=== PATIENT | female | born 1965 | race Caucasian/White ===

== ENCOUNTER → 2016-08-22 | Outpatient (CLI) | payer BC ==
[~2016-08-22] MED LIST: BCPILLS PO; CHOL20009 PO; CLX20 PO; CONJ.6255 PO; HYDR-5688 PO; IBUP-1050 PO; NRN600 PO; PRLSR20 PO; ZNTT/150 PO
[2016-08-22 09:10] LABS: BASO % 0.6 %; BASO ABS # 0.04 K/uL (0-0.2); COMPLETE YES; EOS % 2.6 %; HEMATOCRIT 37.9 % (37-47); IG% 0.2 %; LYMPH % 37.7 %; MEAN CELL VOLUME 91.1 fL (80-100); MEAN PLATELET VOLUME 8.7 fL (7.4-10.4); MONO % 8.1 %; NEUT % 50.8 %; PLATELET COUNT 328 K/uL (130-400); RED BLOOD COUNT 4.16 M/uL (4.2-5.4); WHITE BLOOD COUNT 6.63 K/uL (4.8-10.8)
[2016-08-22 09:33] LABS: BLOOD UREA NITROGEN 11 mg/dl (7-18); BUN/CREATININE RATIO 11.6 (10-20); CARBON DIOXIDE 28 mmol/L (21-32); CHLORIDE 107 mmol/L (98-107); CREATININE 0.92 mg/dl (0.60-1.20); GLUCOSE 88 mg/dl (70-99); POTASSIUM 3.6 mmol/L (3.5-5.1); SODIUM 142 mmol/L (136-145)
== END | disposition home or self-care (01) ==
LOC: C.CPL 08:42
PROVIDERS: ATTEND Orthopaedic Surgery
DX: Z01.810 Encounter for preprocedural cardiovascular examination (principal); Z01.812 Encounter for preprocedural laboratory examination; S80.02XA Contusion of left knee, initial encounter; X58.XXXA Exposure to other specified factors, initial encounter

== ENCOUNTER → 2016-09-04 | Day surgery (SDC) | payer BC ==
[2016-08-22 07:47] VITALS: Ht 160 cm; Wt 80.9 kg
[~2016-09-04] VITALS: Ht 160 cm; Wt 80.9 kg
[~2016-09-04] MED LIST changes: +ATROPINE SULFATE 0.1 MG/ML 5ML SYR IV PRN; -BCPILLS PO; +CEFAZOLIN 2000 MG/60 ML D5W IV SCH; -CLX20 PO; +DEXAMETHASONE SOD INJ 4 MG/ML VIAL IV PRN; +DEXAMETHASONE SOD INJ 4 MG/ML VIAL ONE; +EpHEDrine SULFATE INJ 50 MG/ML AMP IV PRN; +FENTANYL CITRATE INJ 50 MCG/1 ML 2 ML VIAL IV PRN; +FENTANYL CITRATE INJ 50 MCG/1 ML 2 ML VIAL ONE; +HYDROCODONE/ACETAMOPHEN 5/325MG TAB PO PRN; +IBUPROFEN 200 MG TAB ONE; +KETOROLAC TROMETHAMINE 30 MG/ML VIAL IV. PRN; +KETOROLAC TROMETHAMINE 30 MG/ML VIAL ONE; +LABETALOL HCL IV 5 MG/ML 20ML IV PRN; +LACTATED RINGER'S 1000ML 1,000 ML IV SCH; +LIDOCAINE HCL 2% 2 ML VIAL (20MG/ML) ONE; +METOCLOPRAMIDE HCL INJ 5 MG/ML 2 ML VIAL IV PRN; +MIDAZOLAM HCL 1 MG/ML 2ML VIAL ONE; +MoRPHine SULFATE 10 MG/ML CARP/VIAL IV PRN; +NURSING VERBAL MED ORDER ONE; +ONDANSETRON INJ 2 MG/ML 2 ML VIAL IV PRN; +ONDANSETRON INJ 2 MG/ML 2 ML VIAL ONE; +PHENYLEPHRINE 100MCG/ML 5ML SYR IV PRN; +PROPOFOL IV EMULSION 10 MG/ML 20 ML VIAL IV ONE; +ROPIVACAINE 0.5% 5 MG/ML 30 ML VIAL ONE; +SODIUM CHLORIDE 0.9% 1000ML 1,000 ML IV SCH; -ZNTT/150 PO
--- NOTE | 2016-09-04 10:00 | History & Physical Bridge - [place] ---
H&P Re-Evaluation Bridge Note: I have examined the patient, reviewed the History & Physical and in the interval since the performance of the History & Physical I have noted the following changes of clinical significance: No changes noted
[2016-09-04] MEDS: EpINEphrine INJ 1MG/ML AMP 1 MG/ML AMP ONE ×2 (11:34→11:39)
--- NOTE | 2016-09-04 11:48 | [facility] Post Operative Brief Note ---
Immediate Operative Summary Operative Date Sep 04, 2016. Pre-Operative Diagnosis Right Knee Lateral Meniscus Tear, Pain Post-Operative Diagnosis same Procedure(s) Performed Right Knee Diagnostic Arthroscopy, PLICA Excision, Chondroplasty Surgeon Dr. Lorenzo Gross Heart Specialist Surgeon(s) Prakash Kowalski PA-C Estimated Blood Loss 0 Findings as above Specimens none Complication(s) None Disposition Recovery Room / PACU
--- NOTE | 2016-09-04 11:50 | Discharge Instructions-SurgCtr ---
Discharge Instructions Date of Service Sep 04, 2016. Visit Reason for Visit: Right Knee Lateral Meniscus Tear, Pain Discharge Discharge Diagnosis / Problem: SAME ABOVE Discharge Goals Goal(s): Decrease discomfort, Improve function Medications Stopped Medications Name(s): motrin stopped 1 wk ago Restart Stopped Medication(s): MAY RESTART 09/05/2016 Activity Recommendations Activity Limitations: as noted below Lifting Limitations: gradually increase as tolerated Exercise/Sports Limitations: gradually increase as tolerated Shower/Bathe: tomorrow Anesthesia . Post Anesthesia Instructions: If you have had General Anesthesia or IV Sedation: * Do not drive today. * Resume driving when surgeon permits. * Do not make important decisions or sign legal documents today. * Call surgeon for: 1. Temperature elevations greater than 101 degrees F. 2. Uncontrollable pain. 3. Excessive bleeding. 4. Persistent nausea and vomiting. 5. Medication intolerance (nausea, vomiting or rash). * For nausea and vomiting use only clear liquids such as: tea, soda, bouillon until nausea subsides, then gradually increase diet as tolerated. * If you have any concerns or questions, call your surgeon's office. If physician is unavailable and it is an emergency, call 911 or go to the nearest emergency room. . Instructions / Follow-Up Instructions / Follow-Up MEDICATIONS: * Resume previous medications unless instructed otherwise by your surgeon. * Always take pain medication on a full stomach or with food to avoid upset stomach. * Do not drink alcohol or drive while taking narcotics. * Ibuprofen or Tylenol may be taken if narcotic not needed. SPECIAL CARE INSTRUCTIONS: __ None _X_ Keep extremity elevated and iced x 48 hours; apply ice 20-30 minutes 8-10 times/day. May remove at night. _X_ Crutches _X_ May discard when able __ Brace/Post-op shoe __ 24 hrs/day __ Remove at night _X_ Dressing __ Maintain until seen in office, may shower with plastic over site _X_ Remove dressings in 24-48 hours and then may shower _X_ Cover incisions with band-aids after showering __ Do not remove steri-strips Call physician if chills or temperature rises above 102 degrees or pain unrelieved by prescribed pain medications. Office [phone] Diet Recommendations Home Diet: no limitations Fluid Restriction: None Procedures Procedures Performed: Right Knee Diagnostic Arthroscopy, PLICA Excision, Chondroplasty Pending Studies Studies pending at discharge: no Work Instructions Return To Work: after follow-up Lifting Limitations: none Medical Emergencies . Who to Call and When: Medical Emergencies: If at any time you feel your situation is an emergency, please call 911 immediately. . Non-Emergent Contact Non-Emergency issues call your: Primary Care Provider Call Non-Emergent contact if: you have a fever, temperature is above 101.5 . . "Provider Documentation" section prepared by Percy Kowalski.
--- NOTE | 2016-09-04 12:01 | OPERATIVE REPORT ---
DATE OF OPERATION: 09/04/2016 PREOPERATIVE DIAGNOSIS: Possible lateral meniscal tear of the right knee. 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 PROCEDURE: Right knee diagnostic arthroscopy with limited debridement including plica excision and chondroplasty. SURGEON: Dr. Saturnino Gross. STREAMING MEDIA SPECIALIST: Prakash Kowalski PA-C, whose assistance was necessary for positioning the leg and helping with instrumentation. ANESTHESIA: General. COMPLICATIONS: None. CONDITION: Stable to PACU. INDICATIONS: Patricia is a pleasant 51-year-old female who has been having greater than 1 year history of constant right knee pain. Most of her pain was located along the posterolateral region of the knee. She failed extensive physical therapy. MRI was essentially negative, but after failing a year of conservative treatment with continued knee pain, she elected to proceed with diagnostic arthroscopy. On 09/04/2016, she arrived at [facility] for the above procedure. She was seen in the preoperative holding area and the operative extremity was identified and signed. She was given a preoperative antibiotic, taken back to the operating room, laid on table in supine position, and put under general anesthesia. The right knee was then prepped and draped in sterile fashion. Timeout was done, and the patient and operative extremity was properly identified. A scope was introduced in the lateral parapatellar portal. Diagnostic arthroscopy showed no cartilage damage within the trochlea. There was a very large medial-sided plica. The scope was then brought into the medial compartment and a medial parapatellar portal was made under direct visualization. There were some grade 2 chondral changes of the distal medial femoral condyle and some flaking of the cartilage. Shaver was used to do chondroplasty of the distal medial femoral condyle. The medial meniscus was probed and examined extensively without evidence of tear. The scope was brought into the trochlea. ACL and PCL were intact. The scope was brought into the lateral compartment and the knee was brought in a [id number] position. The lateral meniscus was completely intact, was probed extensively without any evidence of tear. The femoral condyle was examined extensively without any evidence of arthritis or chondral flaps. The knee was brought into full extension and the shaver was used to do a limited synovectomy to include plica excision. The scope was then placed in the medial parapatellar portal. Repeat diagnostic arthroscopy showed no additional pathology. Arthroscopic instruments were removed from the knee. Portal sites were closed with 3-0 nylon. The knee was then injected with 30 mL of Naropin with epinephrine and Toradol. She was then placed in a soft compressive dressing, extubated, transferred to a [facility] and taken to the postanesthesia care unit in stable condition. She tolerated the procedure well. I attest to the content of the Intraoperative Record and any orders documented therein. Any exceptio ns are noted below.
[2016-09-04 13:07] VITALS: TEMP 37.4
[2016-09-04 13:20] VITALS: BP 129/80; PULSE 73; O2SAT 97
--- NOTE | 2016-09-04 13:36 | Anesthesia Progress Nt - [facility] ---
Anesthesia Post Op Note Date & Time Sep 04, 2016 at 13:36 Vital Signs Pain Intensity: 3 Vital Signs Past 12 Hours Date Time Temp Pulse Resp B/P Pulse Ox O2 Delivery O2 Flow Rate FiO2 09/04/16 13:20 73 16 129/80 97 Room Air 09/04/16 13:07 37.4 78 16 128/79 97 Room Air 09/04/16 12:47 78 17 95 09/04/16 12:47 78 17 09/04/16 12:45 104/74 09/04/16 12:42 37.4 76 20 104/74 95 Room Air 09/04/16 12:42 85 19 99 09/04/16 12:42 85 19 09/04/16 12:40 117/74 09/04/16 12:37 68 19 09/04/16 12:37 68 19 96 09/04/16 12:35 109/77 09/04/16 12:32 75 26 97 09/04/16 12:32 74 26 09/04/16 12:30 124/69 09/04/16 12:27 93 21 09/04/16 12:27 95 21 97 09/04/16 12:22 76 16 100 09/04/16 12:22 76 16 09/04/16 12:21 69 16 100 09/04/16 12:21 70 16 09/04/16 12:20 114/74 09/04/16 12:17 163/106 09/04/16 12:16 74 28 100 09/04/16 12:16 74 28 09/04/16 12:11 89 21 09/04/16 12:11 90 21 100 09/04/16 12:06 75 13 09/04/16 12:06 72 13 100 09/04/16 12:05 114/85 09/04/16 12:04 69 14 100 09/04/16 12:04 71 14 09/04/16 12:00 106/70 09/04/16 11:59 70 11 09/04/16 11:59 72 11 100 09/04/16 11:55 105/65 09/04/16 11:54 110 12 09/04/16 11:54 36.5 59 14 95/60 96 Diffusion Mask 09/04/16 11:54 95 12 95 09/04/16 10:04 76 16 131/82 97 Room Air Notes Mental Status: alert / awake / arousable, participated in evaluation Pt Amnestic to Procedure: Yes Nausea / Vomiting: adequately controlled Pain: adequately controlled Airway Patency, RR, SpO2: stable & adequate BP & HR: stable & adequate Hydration State: stable & adequate Anesthetic Complications: no major complications apparent
== END | disposition home or self-care (01) ==
LOC: X.SURG 09:43
PROVIDERS: ATTEND Orthopaedic Surgery
DX: M23.231 Derangement of other medial meniscus due to old tear or injury, right knee (principal); M94.211 Chondromalacia, right shoulder; M67.51 Plica syndrome, right knee; M79.7 Fibromyalgia; Z98.890 Other specified postprocedural states; Z88.5 Allergy status to narcotic agent

== ENCOUNTER → 2017-09-02 | Outpatient (CLI) | payer OTHER ==
[~2017-09-02] MED LIST changes: -ATROPINE SULFATE 0.1 MG/ML 5ML SYR IV PRN; -CEFAZOLIN 2000 MG/60 ML D5W IV SCH; -DEXAMETHASONE SOD INJ 4 MG/ML VIAL IV PRN; -DEXAMETHASONE SOD INJ 4 MG/ML VIAL ONE; -EpHEDrine SULFATE INJ 50 MG/ML AMP IV PRN; -FENTANYL CITRATE INJ 50 MCG/1 ML 2 ML VIAL IV PRN; -FENTANYL CITRATE INJ 50 MCG/1 ML 2 ML VIAL ONE; -HYDR-5688 PO; -HYDROCODONE/ACETAMOPHEN 5/325MG TAB PO PRN; -IBUPROFEN 200 MG TAB ONE; -KETOROLAC TROMETHAMINE 30 MG/ML VIAL IV. PRN; -KETOROLAC TROMETHAMINE 30 MG/ML VIAL ONE; -LABETALOL HCL IV 5 MG/ML 20ML IV PRN; -LACTATED RINGER'S 1000ML 1,000 ML IV SCH; -LIDOCAINE HCL 2% 2 ML VIAL (20MG/ML) ONE; -METOCLOPRAMIDE HCL INJ 5 MG/ML 2 ML VIAL IV PRN; -MIDAZOLAM HCL 1 MG/ML 2ML VIAL ONE; -MoRPHine SULFATE 10 MG/ML CARP/VIAL IV PRN; -NURSING VERBAL MED ORDER ONE; -ONDANSETRON INJ 2 MG/ML 2 ML VIAL IV PRN; -ONDANSETRON INJ 2 MG/ML 2 ML VIAL ONE; -PHENYLEPHRINE 100MCG/ML 5ML SYR IV PRN; -PROPOFOL IV EMULSION 10 MG/ML 20 ML VIAL IV ONE; -ROPIVACAINE 0.5% 5 MG/ML 30 ML VIAL ONE; -SODIUM CHLORIDE 0.9% 1000ML 1,000 ML IV SCH
--- NOTE | 2017-09-02 09:16 | DIAGNOSTIC IMAGING REPORT ---
R EXTREMITY NONVASCULAR LIMITED CLINICAL HISTORY: 52 years-old Female presenting with RT FLANK LIPOMA. TECHNIQUE: Real-time grayscale Doppler ultrasound imaging of the right flank was performed for a focused evaluation at the site of clinical concern. Color Doppler ultrasound imaging was also performed. COMPARISON: CT of the abdomen and pelvis from 09/30/2014. FINDINGS: Somewhat ill-defined hyperechogenic 1 cm focus centered in the subcutaneous fat immediately subjacent to the cutis. No surrounding fluid or hyperemia. IMPRESSION: 1. Findings most consistent with a 1 cm lipoma. This was not visualized on prior CT. Electronically signed by: Paulo Key M.D. 09/02/2017 9:14 AM Dictated Date/Time: 09/02/2017 9:12 AM
== END | disposition home or self-care (01) ==
LOC: C.ULTR 08:55
PROVIDERS: ATTEND Family Medicine
DX: D17.9 Benign lipomatous neoplasm, unspecified (principal)

== ENCOUNTER → 2017-10-26 | Outpatient (CLI) | payer OTHER ==
--- NOTE | 2017-10-26 14:32 | DIAGNOSTIC IMAGING REPORT ---
CT OF THE ABDOMEN AND PELVIS WITHOUT CONTRAST CLINICAL HISTORY: Left-sided abdominal pain. Evaluate for stone or diverticulitis. COMPARISON STUDY: CT of the abdomen and pelvis September 30, 2014. TECHNIQUE: Axial images of the abdomen and pelvis were obtained without IV contrast. Images were reviewed in the axial, sagittal, and coronal planes. A dose lowering technique was utilized adhering to the principles of ALARA. FINDINGS: Lung bases are clear. No renal, ureteral or bladder calculi are present. Left-sided parapelvic cysts are noted. There is no hydronephrosis. There is no biliary ductal dilatation status post cholecystectomy. Evaluation of the abdomen and pelvis is suboptimal on this unenhanced exam. The liver, spleen, adrenal glands and pancreas are unremarkable. There is no evidence for a bowel obstruction. The appendix is normal. Note is made of a 2.3 cm tubular fat attenuation abnormality with central density along the anterior aspect of the distal descending colon. There is mild adjacent infiltration. There is no evidence for diverticulitis. No diverticulosis is noted. There is no lymphadenopathy. No suspicious osseous lesions are present. IMPRESSION: 1. Epiploic appendagitis of the distal descending colon with mild associated inflammation. This accounts for the patient's symptoms and represents a self-limiting process. 2. No urinary calculi or hydronephrosis. Electronically signed by: Phill Mckinney M.D. 10/26/2017 2:31 PM Dictated Date/Time: 10/26/2017 2:22 PM
== END | disposition home or self-care (01) ==
LOC: C.CTS 13:57
PROVIDERS: ATTEND Family Medicine
DX: K65.9 Peritonitis, unspecified (principal); Q43.8 Other specified congenital malformations of intestine

== ENCOUNTER 2022-07-17 15:12 | Inpatient (IN) ==
[2022-07-17] MEDS ORDERED: SODIUM CHLORIDE 0.9% 1000ML 1,000 ML IV ONE (16:46)
[2022-07-17 17:52] LABS: iSTAT Creatinine 8.7 mg/dl (0.6-1.3); iSTAT Hemoglobin 13.6 g/dl (12.0-16.0); iSTAT Ionized Calcium 1.11 mmol/l (1.12-1.32); iSTAT Potassium 4.4 mmol/L (3.3-5.0)
--- NOTE | 2022-07-17 18:24 | Emergency Department Note ---
Impression & Plan Acute renal failure ED Provider Note INFORMANT: Patient ED PROVIDER(S): Adithya Wiseman DO CHIEF COMPLAINT: Kidney abnormality PLAN: Disposition: Admission Condition: Stable Outpatient prescription management: Referral: I spoke with the hospitalist, who will see the patient for admission/observation and further evaluation and consultation. MEDICAL DECISION MAKING: This is a 57-year-old female who presents to the ED with a chief complaint of abnormal kidney function test. The patient states that she had blood work and a chest x-ray today. She called by the family doctor and told that her kidneys were abnormal she was told to come to the ED. She reports having a positive COVID test on Thursday at home. She has had a cough for about the past 4 days. On Thursday she was started on prednisone, doxycycline and Z-Shekhar. She states that she has been eating and drinking rather normally. She has been previously vaccinated for COVID. The patient denies any other specific symptoms at this time. She does have bilateral crackles on my exam with regards to the lungs. Chest x-ray at 11:00 this morning shows clear lungs. No evidence of pneumonia. Oxygen saturations for the patient was 94 to 95% on room air. I did ambulate her in the room and she did not drop below 94%. No leukocytosis today. No anemia. BUN of 80 earlier today with a creatinine of 7.64. I-STAT lab done here in the ED shows a creatinine of 8.7. The patient was told the results. She was hydrated with a liter normal saline IV upfront as her BUN suggests dehydration. She denies any black tarry stools to suggest an upper GI bleed. A CT scan of the pelvis did not show any acute abnormality. The patient will be seen by the hospitalist for further evaluation and care. I did speak with the hospitalist as well as Dr. Cuello, nephrology. Dr. Cuello suggest ruling out any obstructive changes on the CT scan, hydration and ruling out any toxic exposures to the kidneys. The patient CBC tonight was unremarkable for any significant anemia or leukocytosis. Her creatinine was 8.36 with a BUN of 92. The other electrolytes were unremarkable. Triage Nursing notes reviewed. Vital Signs: reviewed Prior /Outside records reviewed: none Differential diagnosis: Differential includes medication related acute kidney injury, dehydration, less likely is post renal azotemia as she is urinating, other. Diagnostics, as interpreted by me: 12 lead ECG: none Cardiac Monitoring: none Medical decision rules: none Imaging studies: CT scan of the abdomen pelvis: No obstructive ureteral stones. Procedures: none. Critical care: none. HPI: See MDM above. PAST MEDICAL HISTORY: See Below PAST SURGICAL HISTORY: See Below SOCIAL HISTORY: See Below HOME MEDICATIONS: See Below ALLERGIES: See Below VITALS: See Below PHYSICAL EXAMINATION: CONSTITUTIONAL/VITAL SIGNS: Reviewed GENERAL: Non-toxic in appearance. INTEGUMENTARY: Warm, dry, and [place]. HEAD: Normocephalic. EYES: without scleral icterus. ENT/OROPHARYNX: clear and moist. RESPIRATORY: No increased work of breathing. Lungs clear. CARDIOVASCULAR: Regular rate. Regular rhythm. GI/ABDOMEN: Soft and nontender. . EXTREMITIES: Normal NEUROLOGICAL: Intact without focal deficits. PSYCHIATRIC: Normal affect. MUSCULOSKELETAL: Normal. TRIAGE NURSING DOCUMENTATION REVIEWED. Past Med/Surg History Medical History Fibromyalgia GERD (gastroesophageal reflux disease) History of anesthesia reaction very slow to wake up per patient Obesity (BMI 30.0-34.9) Osteoarthritis Right knee DJD Surgical History H/O wisdom tooth extraction History of carpal tunnel release bilateral History of cholecystectomy History of colonoscopy History of esophagogastroduodenoscopy (EGD) S/P arthroscopy of right knee Status post de Quervain's release surgery Family History Father Family history of diabetes mellitus Mother Family history of diabetes mellitus Other No family history of adverse response to anesthesia Social History Smoking Status: Never smoker Second Hand Exposure: No; Hx Alcohol Use: No Hx Substance Use: No Preferred Language: Georgian Communication Ability: Effective Block Saw Operator Required: No Beliefs That Will Affect Care: None Current Living Situation: Alone Feels Safe at Home: Yes Assistive Devices: Glasses Allergies Allergies Allergy/AdvReac Type Severity Reaction Status Date / Time codeine AdvReac Severe severe Verified 11/13/21 06:23 vomiting Home Meds Home Medications Medication Instructions Recorded Confirmed B-complex with vitamin C (Super B 1 tab PO QAM 01/04/20 10/31/21 Complex-Vitamin C tablet) cholecalciferol (vitamin D3) 25 50 mcg PO QAM 01/04/20 10/31/21 mcg (1,000 unit) tablet (Vitamin D3) duloxetine 20 mg capsule,delayed 20 mg PO QAM 01/04/20 10/31/21 release (Cymbalta) gabapentin 600 mg tablet 600 mg PO BID 01/04/20 10/31/21 omeprazole 20 mg capsule,delayed 20 mg PO QAM 01/04/20 10/31/21 release sulfasalazine 500 mg tablet 100 mg PO BID 01/04/20 10/31/21 doxycycline hyclate 100 mg capsule 100 mg PO BID 07/17/22 07/17/22 Previous Rx's Medication Instructions Recorded aspirin 81 mg tablet,delayed 81 mg PO BID #60 tabs 11/13/21 release ondansetron 4 mg disintegrating 4 mg PO Q6H PRN nausea and 11/13/21 tablet vomiting #15 tabs oxycodone-acetaminophen 5 mg-325 1 - 2 tab PO Q6H PRN pain #18 tabs 11/13/21 mg tablet (Percocet) diclofenac sodium 75 mg 75 mg PO BID PRN pain #60 tabs 05/23/22 tablet,delayed release Results & Data (ED) Vital Signs Vital Signs - 24 hr 07/17/22 15:21 07/17/22 17:08 07/17/22 19:24 Temperature 36.9 C Temperature Source Temporal Artery Scan Pulse Rate 74 Pulse Rate [Finger] 71 Pulse Rhythm Regular Pulse Rhythm [Finger] Regular Pulse Strength Normal Pulse Strength [Finger] Normal Respiratory Rate 20 16 17 Respiratory Effort / Characteristics Non-Labored Spontaneous Non-Labored Non-Labored Respiratory Depth Normal Normal Normal Respiratory Pattern Regular Regular Regular Blood Pressure 175/103 H Blood Pressure [Left Arm] 164/104 H Blood Pressure Mean 127 Blood Pressure Mean [Left Arm] 124 Blood Pressure Position Sitting Pulse Oximetry 94 95 Oxygen Delivery Method Room Air Sepsis Recent Fever Within 48 Hours No Sepsis New/Unexplained Change in Mental Status No Sepsis Action Taken by Nursing No Action Required Laboratory Data 07/17/22 17:01 07/17/22 17:01 Lab Results 07/17/22 07/17/22 07/17/22 Range/Units 17:01 17:01 17:39 WBC Cancelled RBC Cancelled Hgb Cancelled POC Hgb 13.6 (12.0-16.0) g/dl Hct Cancelled POC Hct 40 (37-47) % MCV Cancelled MCH Cancelled MCHC Cancelled RDW Std Deviation Cancelled RDW Coeff of Carmen Cancelled Plt Count Cancelled MPV Cancelled Immature Gran % (Auto) Cancelled Neut % (Auto) Cancelled Lymph % (Auto) Cancelled Rich % (Auto) Cancelled Eos % (Auto) Cancelled Baso % (Auto) Cancelled Neut # (Auto) Cancelled Lymph # (Auto) Cancelled Rich # (Auto) Cancelled Eos # (Auto) Cancelled Baso # (Auto) Cancelled Immature Gran # (Auto) Cancelled Absolute Nucleated RBC Cancelled Nucleated RBC % (auto) Cancelled Neutrophils % (Manual) Cancelled Band Neutrophils % Cancelled Lymphocytes % (Manual) Cancelled Prolymphocyte % Cancelled Reactive Lymphs % (Man) Cancelled Monocytes % (Manual) Cancelled Eosinophils % (Manual) Cancelled Basophils % (Manual) Cancelled Metamyelocytes % (Man) Cancelled Myelocytes % (Man) Cancelled Promyelocytes % (Man) Cancelled Blast Cells % (Manual) Cancelled Plasma Cell % (Manual) Cancelled Other Cells % Cancelled Nucleated RBC % Cancelled Neutrophils # (Manual) Cancelled Band Neutrophils # Cancelled Total Absolute Neuts Cancelled Lymphocytes # (Manual) Cancelled Prolymphocyte # Cancelled Reactive Lymphs # Cancelled Total Abs Lymphocytes Cancelled Monocytes # (Manual) Cancelled Eosinophils # (Manual) Cancelled Basophils # (Manual) Cancelled Metamyelocytes # (Man) Cancelled Myelocytes # (Manual) Cancelled Promyelocytes # (Man) Cancelled Blast Cells # (Man) Cancelled Plasma Cell # (Manual) Cancelled Other Cells # Cancelled Nucleated RBCs # (Man) Cancelled Hypersegmented Neuts Cancelled Hyposegmented Neuts Cancelled Hypogranular Neuts Cancelled Large Granular Lymphs Cancelled # Lrg Granular Lymphs Cancelled Hairy Cells Cancelled Smudge Cells Cancelled Toxic Granulation Cancelled Toxic Vacuolation Cancelled Dohle Bodies Cancelled Nina Rods Cancelled Platelet Estimate Cancelled Hypogranular Platelets Cancelled Clumped Platelets Cancelled Giant Platelets Cancelled Platelet Satelliting Cancelled RBC Morphology Cancelled Polychromasia Cancelled Hypochromasia Cancelled Poikilocytosis Cancelled Basophilic Stippling Cancelled Anisocytosis Cancelled Microcytosis Cancelled Macrocytosis Cancelled Spherocytes Cancelled Pappenheimer Bodies Cancelled Sickle Cells Cancelled Target Cells Cancelled Tear Drop Cells Cancelled Ovalocytes Cancelled Stomatocytes Cancelled Johnston-[place] Bodies Cancelled Echinocytes Cancelled Acanthocytes (Spur) Cancelled Rouleaux Cancelled RBC Agglutinates Cancelled Schistocytes Cancelled Sezary Cell Cancelled POC Sodium 138 (135-144) mmol/L Sodium 137 (136-145) mmol/L POC Potassium 4.4 (3.3-5.0) mmol/L Potassium 4.1 (3.5-5.1) mmol/L POC Chloride 106 (101-112) mmol/L Chloride 105 (98-107) mmol/L Carbon Dioxide 24 (21-32) mmol/L POC Total CO2 24 (24-31) mmol/L Anion Gap 8 (3-11) POC Anion Gap 13.0 L (16-25) mmol/L POC BUN 85 H (7-18) mg/dl BUN 92 H (6-23) mg/dl Creatinine 8.36 H* D (0.6-1.2) mg/dl POC Creatinine 8.7 H* (0.6-1.3) mg/dl Est Cr Clr Drug Dosing 7.7 ml/min Est GFR ( Amer) 5.5 ml/min Est GFR (Non-Af Amer) 4.8 ml/min BUN/Creatinine Ratio 11.0 (10-20) Glucose 158 H (70-99(Fasting)) mg/dl POC Glucose (other) 150 H (70-99) mg/dl Calcium 9.2 (8.5-10.1) mg/dl POC Ioniz Calcium Ana 1.11 L (1.12-1.32) mmol/l Total Bilirubin 0.3 (0.2-1.0) mg/dl AST 44 H (13-39) U/L ALT 43 (7-52) U/L Alkaline Phosphatase 112 H (34-104) U/L Total Protein 7.0 (6.0-8.3) gm/dl Albumin 3.3 L (3.4-5.0) gm/dl Globulin 3.7 (2.5-4.0) gm/dl Albumin/Globulin Ratio 0.9 (0.9-2) SARS-CoV-2, RNA, NAAT (NEGATIVE) Blood Parasites ID Cancelled 07/17/22 07/17/22 Range/Units 18:02 18:38 WBC 7.54 RBC 3.71 L Hgb 11.8 L POC Hgb (12.0-16.0) g/dl Hct 35.7 L POC Hct (37-47) % MCV 96.2 MCH 31.8 MCHC 33.1 RDW Std Deviation 47.3 H RDW Coeff of Carmen 13.2 Plt Count 255 MPV 8.6 L Immature Gran % (Auto) 0.5 Neut % (Auto) 79.7 Lymph % (Auto) 13.7 Rich % (Auto) 5.7 Eos % (Auto) 0.1 Baso % (Auto) 0.3 Neut # (Auto) 6.01 Lymph # (Auto) 1.03 L Rich # (Auto) 0.43 Eos # (Auto) 0.01 Baso # (Auto) 0.02 Immature Gran # (Auto) 0.04 Absolute Nucleated RBC Nucleated RBC % (auto) Neutrophils % (Manual) Band Neutrophils % Lymphocytes % (Manual) Prolymphocyte % Reactive Lymphs % (Man) Monocytes % (Manual) Eosinophils % (Manual) Basophils % (Manual) Metamyelocytes % (Man) Myelocytes % (Man) Promyelocytes % (Man) Blast Cells % (Manual) Plasma Cell % (Manual) Other Cells % Nucleated RBC % Neutrophils # (Manual) Band Neutrophils # Total Absolute Neuts Lymphocytes # (Manual) Prolymphocyte # Reactive Lymphs # Total Abs Lymphocytes Monocytes # (Manual) Eosinophils # (Manual) Basophils # (Manual) Metamyelocytes # (Man) Myelocytes # (Manual) Promyelocytes # (Man) Blast Cells # (Man) Plasma Cell # (Manual) Other Cells # Nucleated RBCs # (Man) Hypersegmented Neuts Hyposegmented Neuts Hypogranular Neuts Large Granular Lymphs # Lrg Granular Lymphs Hairy Cells Smudge Cells Toxic Granulation Toxic Vacuolation Dohle Bodies Nina Rods Platelet Estimate Hypogranular Platelets Clumped Platelets Giant Platelets Platelet Satelliting RBC Morphology Polychromasia Hypochromasia Poikilocytosis Basophilic Stippling Anisocytosis Microcytosis Macrocytosis Spherocytes Pappenheimer Bodies Sickle Cells Target Cells Tear Drop Cells Ovalocytes Stomatocytes Johnston-[place] Bodies Echinocytes Acanthocytes (Spur) Rouleaux RBC Agglutinates Schistocytes Sezary Cell POC Sodium (135-144) mmol/L Sodium (136-145) mmol/L POC Potassium (3.3-5.0) mmol/L Potassium (3.5-5.1) mmol/L POC Chloride (101-112) mmol/L Chloride (98-107) mmol/L Carbon Dioxide (21-32) mmol/L POC Total CO2 (24-31) mmol/L Anion Gap (3-11) POC Anion Gap (16-25) mmol/L POC BUN (7-18) mg/dl BUN (6-23) mg/dl Creatinine (0.6-1.2) mg/dl POC Creatinine (0.6-1.3) mg/dl Est Cr Clr Drug Dosing ml/min Est GFR ( Amer) ml/min Est GFR (Non-Af Amer) ml/min BUN/Creatinine Ratio (10-20) Glucose (70-99(Fasting)) mg/dl POC Glucose (other) (70-99) mg/dl Calcium (8.5-10.1) mg/dl POC Ioniz Calcium Ana (1.12-1.32) mmol/l Total Bilirubin (0.2-1.0) mg/dl AST (13-39) U/L ALT (7-52) U/L Alkaline Phosphatase (34-104) U/L Total Protein (6.0-8.3) gm/dl Albumin (3.4-5.0) gm/dl Globulin (2.5-4.0) gm/dl Albumin/Globulin Ratio (0.9-2) SARS-CoV-2, RNA, NAAT NEGATIVE (NEGATIVE) Blood Parasites ID Administered Medications Discontinued Medications Sodium Chloride (Nss 1000ml) 1,000 mls @ 999 mls/hr IV .Q1H1M ONE Stop: 07/17/22 17:46 Last Infusion: 07/17/22 19:16 Dose: 0 mls/hr Documented By: Admin: 07/17/22 17:33 Dose: 999 mls/hr Documented By: SR Imaging Data Radiologist's Impression: Abdomen/Pelvis CT 07/17/22 18:[address] WITHOUT CONTRAST CT DOSE: 685.59 mGy.cm HISTORY: Acute renal failure acute renal faliure TECHNIQUE: Multiaxial CT images of the abdomen and pelvis were performed without contrast. A dose lowering technique was utilized adhering to the principles of ALARA. COMPARISON STUDY: CT abdomen pelvis 10/26/2017 FINDINGS: Bibasilar bronchial wall thickening. Mild bibasilar atelectasis. No pneumatosis or pneumoperitoneum. The unenhanced spleen, pancreas and adrenal glands are unremarkable. Cholecystectomy. Unremarkable liver. There is mild nonspecific right greater left perinephric stranding. No renal or ureteral calculi or hydronephrosis. Decompressed urinary bladder with mild wall thickening. Unremarkable uterus. Atherosclerosis of the aorta. No lymphadenopathy. No bowel obstruction or bowel wall thickening. Normal appendix. Tiny fat filled umbilical hernia. No acute fracture. Degenerative changes of the spine, pelvis and hips. IMPRESSION: 1. No bowel obstruction or bowel wall thickening. Normal appendix. 2. Mild nonspecific bilateral perinephric stranding. Correlate with urinalysis. 3. No urolith or hydronephrosis. ACT 112: Negative or not required by law. The above report was generated using voice recognition software. It may contain grammatical, syntax or spelling errors. Electronically signed by: Martell Murillo M.D. 07/17/2022 7:26 PM Discharge Plan Visit Data Chief Complaint: Referred by Doctor Stated Complaint: COVID ED Provider: Adithya Wiseman Discharge Problem: Acute renal failure Forms Stand Alone Forms: [facility] [place] Prescriptions Prescriptions: No Action diclofenac sodium 75 mg tablet,delayed release (DR/EC) 75 mg PO BID PRN (Reason: pain) Qty: 60 2RF Rx Instructions: Take with food gabapentin 600 mg Tablet 600 mg PO BID omeprazole 20 mg Capsule,Delayed Release(Dr/Ec) 20 mg PO QAM cholecalciferol (vitamin D3) [Vitamin D3] 25 mcg (1,000 unit) Tablet 50 mcg PO QAM sulfasalazine 500 mg Tablet 100 mg PO BID B-complex with vitamin C [Super B Complex-Vitamin C] Tablet 1 tab PO QAM duloxetine [Cymbalta] 20 mg Capsule,Delayed Release(Dr/Ec) 20 mg PO QAM oxycodone-acetaminophen [Percocet] 5-325 mg tablet 1 - 2 tab PO Q6H MDD Do not exceed 6 tabs per day PRN (Reason: pain) Qty: 18 0RF aspirin 81 mg tablet,delayed release (DR/EC) 81 mg PO BID Qty: 60 0RF Rx Instructions: take with food ondansetron 4 mg tablet,disintegrating 4 mg PO Q6H PRN (Reason: nausea and vomiting) Qty: 15 0RF doxycycline hyclate 100 mg capsule 100 mg PO BID Rx Instructions: ordered 07/15/22 take for 10 days Referrals Referrals: Kerline Duque DO [Primary Care Provider] -
[2022-07-17 18:56] LABS: Basophils # (auto) 0.02 K/uL (0-0.2); Basophils % (auto) 0.3 %; Eosinophils # (auto) 0.01 K/uL (0-0.50); Eosinophils % (auto) 0.1 %; Hematocrit (blood only) 35.7 % (37.0-47.0); Hemoglobin 11.8 g/dl (12.0-16.0); Immature Granulocytes # (auto) 0.04 K/uL (0.01-0.20); Immature Granulocytes % (auto) 0.5 %; Lymphocytes # (auto) 1.03 K/uL (1.2-3.4); Lymphocytes % (auto) 13.7 %; Mean Corpuscular Hemoglobin 31.8 pg (25.0-34.0); Mean Corpuscular Hgb Conc 33.1 g/dL (32.0-36.0); Mean Corpuscular Volume 96.2 fL (80.0-100.0); Mean Platelet Volume 8.6 fL (9.4-12.4); Monocytes # (auto) 0.43 K/uL (0.11-0.59); Monocytes % (auto) 5.7 %; Neutrophils # (auto) 6.01 K/uL (1.40-6.50); Neutrophils % (auto) 79.7 %; Platelet Count 255 K/uL (130-400); RDW Coefficient of Variation 13.2 % (11.5-14.5); RDW Standard Deviation 47.3 fL (36.4-46.3); Red Blood Count 3.71 M/uL (4.20-5.40); White Blood Count 7.54 K/ul (4.8-10.8)
--- NOTE | 2022-07-17 18:58 | History & Physical Report ---
Date of Service July 17, 2022 Assessment & Plan (1) LI (acute kidney injury): Plan: This is a 57-year-old female with history of fibromyalgia on sulfasalazine, GERD on omeprazole who presented to [facility] at the recommendation of her physician for rapidly-progressing non-oliguric LI of unknown etiology. Severe Non-oliguric LI * In context of several days' worth of fatigue, cough, sore throat (NEW MEDS: doxycycline, Phenergan, prednisone) * Work-up as follows: -- BUN 80 / Cr 7.6 on admission --> BUN 92 / Cr 8.36 approx. 6 hours later -- CBC without leukocytosis, no eosinophilia ; CRP 2.0 -- Lytes stable: K 3.8, HCO3 24 -- CT-A/P: "Mild nonspecific perinephric stranding." -- Urine microscopy demonstrating sterile pyuria (>30 WBCs), 4+ proteinuria (>1350 microalbumin), 5-10 RBCs in setting of >30 epis -- Sherice 40 / UCr 133.1 / FENa 1.8% -- Check BCX -- Check GN serologies: ESR, CRP, hepatitis panel, HIV, C3/C4, ANCA+mpo+PR3 with reflex, TERESITA, dsDNA, anti-GBM * Appreciate nephrology consultation for diagnostic expertise --> will proceed with methylprednisolone 250mg IV x 1 now * DDX includes tubulointerstitial disease like RPGN, ATIN, PSGN, or nephrotic syndromes. ATN likely contributing to some degree. Lower suspicion all of this is due to GI losses from illness based on history. * Continue mIVF - LR @ 125cc/hr * Strict intake/output, monitor fluid status * Hold sulfasalazine, PPI, gabapentin * Avoid nephrotoxic medications * Recheck BMP q6h (2) Lower respiratory infection: Plan: Lower Respiratory Illness * Approx. 3 days of cough, sore throat, fatigue; +vomiting and diarrhea x 1 day, now resolved * Reportedly tested positive for COVID-19 at home -- however, negative here x 2 * Work-up as follows: -- Afebrile since arrival; some wheezing on exam. Oxygenating well. -- No leukocytosis. CRP 2.0. ESR, PCT pending -- BCX pending given above severe LI -- CXR without acute processes -- Some bronchial wall thickening on CT-A/P * Largely suspect viral bronchitis at this time. Lower suspicion for bacterial PNA but can consider CT if clinically worsening. * Supportive care: steroids as above to be given, can add mucociliary clearance if desired. * Albuterol PRN ordered (3) Fibromyalgia: Plan: Fibromyalgia * Hold sulfasalazine, nortriptyline * Continue duloxetine (4) GERD (gastroesophageal reflux disease): Plan: GERD * Hold PPI Plan Code: Full Diet: Low sodium PPX: Heparin b.i.d. Dispo: [facility] History of Present Illness Primary Care Provider: Kerline Duque, This is a 57-year-old female with history of fibromyalgia on sulfasalazine, GERD on omeprazole who presented to [facility] at the recommendation of her physician for LI. Patient said that she was otherwise in her normal health up until 3 days ago, when she developed progressive fatigue, cough, sore throat. She said symptoms were mild. She went to her PCP, who did order a CXR, which was normal. She was prescribed prednisone, doxycycline with minimal relief in symptoms. 2-3 days ago, she developed nausea with vomiting and diarrhea. It was not profuse. She went to the ED. CXR was negative. She has been able to drink without difficulty. She denies back pain or belly pain. She has been voiding yellow urine. No discoloration or hematuria. She takes sulfasalazine for fibromyalgia. She denies other rheumatologic disease. Home COVID test POSITIVE on Thursday. Negative here. In the ED, patient was found to be hemodynamically stable but hypertensive at 175/100, heart rate 74, saturating 94% on room air. Admission labs revealing sodium 140, potassium 3.8, bicarb 27, anion gap 8, BUN 80/creatinine 7.64 (last at 0.8 on 07/14). CRP 2. Chest x-ray with not demonstrating acute process. She was given 1 L of sodium chloride prior to admission. --- This documentation was created utilizing dictation software. As such, syntax, grammatical, and word-choice errors may be present. Notes are screened prior to submission in an attempt to reduce these errors. If there are any questions or concerns, please contact the author directly for clarification. Allergies Allergy/AdvReac Type Severity Reaction Status Date / Time codeine AdvReac Severe severe Verified 07/17/22 19:41 vomiting Home Medications Medication Instructions Recorded Confirmed Type cholecalciferol (vitamin D3) 25 50 mcg PO QAM 01/04/20 07/17/22 History mcg (1,000 unit) tablet (Vitamin D3) duloxetine 20 mg capsule,delayed 40 mg PO QAM 01/04/20 07/17/22 History release (Cymbalta) gabapentin 600 mg tablet 600 mg PO BID 01/04/20 07/17/22 History sulfasalazine 500 mg tablet 1,000 mg PO BID 01/04/20 07/17/22 History aspirin 81 mg tablet,delayed 81 mg PO BID #60 tabs 11/13/21 07/17/22 Rx release ondansetron 4 mg disintegrating 4 mg PO Q6H PRN nausea and 11/13/21 07/17/22 Rx tablet vomiting #15 tabs diclofenac sodium 75 mg 75 mg PO BID PRN pain #60 tabs 05/23/22 07/17/22 Rx tablet,delayed release doxycycline hyclate 100 mg capsule 100 mg PO BID 07/17/22 07/17/22 History nortriptyline 10 mg capsule 10 mg PO DAILY 07/17/22 07/17/22 History omeprazole 40 mg capsule,delayed 40 mg PO QAM 07/17/22 07/17/22 History release prednisone 20 mg tablet 20 mg PO DAILY 07/17/22 07/17/22 History trazodone 50 mg tablet 50 mg PO HS 07/17/22 07/17/22 History Past Med/Surg History Medical History Fibromyalgia GERD (gastroesophageal reflux disease) History of anesthesia reaction very slow to wake up per patient Obesity (BMI 30.0-34.9) Osteoarthritis Right knee DJD Surgical History H/O wisdom tooth extraction History of carpal tunnel release bilateral History of cholecystectomy History of colonoscopy History of esophagogastroduodenoscopy (EGD) S/P arthroscopy of right knee Status post de Quervain's release surgery Family History Father Family history of diabetes mellitus Mother Family history of diabetes mellitus Other No family history of adverse response to anesthesia Social History Smoking Status: Never smoker Second Hand Exposure: No; Hx Alcohol Use: No Hx Substance Use: No Preferred Language: Croatian Communication Ability: Effective Physician Gynecologist Required: No Beliefs That Will Affect Care: None Current Living Situation: Significant Other Other Information That Helps Us Care for You: No Feels Safe at Home: Yes Safety Concerns: Feels Safe At This Time Assistive Devices: Glasses Review of Systems Review of Systems: as per HPI Physical Exam Physical Exam: General: 57-year old female who is alert, oriented, and appears in no acute distress. HEENT: NCAT. - Eyes - Sclera are white, anicteric, and without injection. - Mouth - MMM - Neck - supple, no appreciable JVD Cardiac: Normal rate and regular rhythm; S1 and S2 present with no murmurs, rubs, or gallops. Pulmonary: Good respiratory effort with symmetric expansion of the chest. No use of accessory muscles. Lungs demonstrated scattered wheezes. Abdominal: Normoactive bowel sounds. Abdomen was soft, nondistended, and non- tender to palpation. Extremities: Upper and lower extremities are warm and well perfused. No peripheral edema in the lower extremities bilaterally Psych: Well-developed, well-nourished, appropriately dressed for occasion. Behavior is cooperative and appropriate. Affect is WNL. Insight is appropriate. Results & Data Results & Data ([facility]) Vital Signs (Past 12 Hours) Vital Signs Temp Pulse Resp BP Pulse Ox O2 Del Method 07/17/22 17:08 16 07/17/22 15:21 36.9 C 74 20 175/103 H 94 Room Air Supervising Physician Co-Signing Physician Notes Attending addendum: I have supervised the medical residents activities, and agree with the H&P unless as otherwise noted. Assessment and Plan: Acute kidney injury/acute renal failure- Creatinine 8.36 upon admission, with baseline 0.8 to on 07/14/2022 Case discussed with nephrology on-call Ordering ESR, CRP, hepatitis panel, HIV, C3/C4, ANCA positive MPO positive AZ-3, TERESITA, double-stranded DNA and anti-GBM We will start methylprednisolone 250 mg IV x1 now, with continuing dosing per nephrology Hold outpatient sulfasalazine Serial BMP every 6 hours Follow urine culture sensitivity Follow blood cultures Consult nephrology Dr. Hendrix Remaining orders and notations as noted Resident Activity Tracking Resident Involvement: Resident Care Provided Care Provided: Adult Hospital Medicine
[2022-07-17 19:06] LABS: Albumin Globulin Ratio 0.9 (0.9-2); Albumin Level 3.3 gm/dl (3.4-5.0); Bilirubin,Total 0.3 mg/dl (0.2-1.0); Calcium 9.2 mg/dl (8.5-10.1); Creatinine Clr Calc Pharmacy 7.7 ml/min; Est GFR (African American) 5.5 ml/min; Est GFR (Non-African American) 4.8 ml/min; Globulin 3.7 gm/dl (2.5-4.0); Potassium 4.1 mmol/L (3.5-5.1)
--- NOTE | 2022-07-17 19:28 | CT Scan Report ---
ABDOMEN AND PELVIS CT WITHOUT CONTRAST CT DOSE: 685.59 mGy.cm HISTORY: Acute renal failure acute renal faliure TECHNIQUE: Multiaxial CT images of the abdomen and pelvis were performed without contrast. A dose lo wering technique was utilized adhering to the principles of ALARA. COMPARISON STUDY: CT abdomen pelvis 10/26/2017 FINDINGS: Bibasilar bronchial wall thickening. Mild bibasilar atelectasis. No pneumatosis or pneumope ritoneum. The unenhanced spleen, pancreas and adrenal glands are unremarkable. Cholecystectomy. Unrem arkable liver. There is mild nonspecific right greater left perinephric stranding. No renal or ureter al calculi or hydronephrosis. Decompressed urinary bladder with mild wall thickening. Unremarkable ut erus. Atherosclerosis of the aorta. No lymphadenopathy. No bowel obstruction or bowel wall thickening. Normal appendix. Tiny fat filled umbilical hernia. No acute fracture. Degenerative changes of the spine, pelvis and hips. IMPRESSION: 1. No bowel obstruction or bowel wall thickening. Normal appendix. 2. Mild nonspecific bilateral perinephric stranding. Correlate with urinalysis. 3. No urolith or hydronephrosis. ACT 112: Negative or not required by law. The above report was generated using voice recognition software. It may contain grammatical, syntax o r spelling errors. Electronically signed by: Martell Murillo M.D. 07/17/2022 7:26 PM
[2022-07-17] MEDS ORDERED: LACTATED RINGER'S 1,000 ML IV STA (20:18)
[2022-07-17 20:32] LABS: Appearance Urine Turbid (Clear); Bacteria Urine Automated Negative (Negative); Bilirubin Urine Negative (Negative); Blood Urine 2+ (Negative); Color Urine Yellow; Epithelial Cell Urine Auto >30 /lpf (0-5); Glucose Urine UA Negative (Negative); Ketones Urine Negative (Negative); Leukocyte Esterase Urine Negative (Negative); Nitrite Urine Negative (Negative); Protein Urine 4+ (Negative); Specific Gravity Urine 1.027 (1.000-1.030); Urobilinogen Urine Negative (Negative); WBC Urine Automated >30 /hpf (0-5)
[2022-07-17 20:44] LABS: Creatinine Urine Random 133.1 mg/dl
[2022-07-17 20:49] LABS: Influenza A virus by PCR Negative (Neg); Influenza B virus by PCR Negative (Neg); RSV by PCR Negative (Neg); SARS CoV2 RNA(COVID-19) Ceph NEGATIVE (Negative)
[2022-07-17 20:53] LABS: Basophils # (auto) 0.03 K/uL (0-0.2); Basophils % (auto) 0.4 %; Hematocrit (blood only) 37.7 % (37.0-47.0); Hemoglobin 12.6 g/dl (12.0-16.0); Immature Granulocytes # (auto) 0.06 K/uL (0.01-0.20); Immature Granulocytes % (auto) 0.7 %; Lymphocytes # (auto) 1.29 K/uL (1.2-3.4); Mean Corpuscular Hemoglobin 31.3 pg (25.0-34.0); Mean Corpuscular Hgb Conc 33.4 g/dL (32.0-36.0); Mean Corpuscular Volume 93.8 fL (80.0-100.0); Mean Platelet Volume 8.7 fL (9.4-12.4); Monocytes # (auto) 0.56 K/uL (0.11-0.59); Monocytes % (auto) 6.9 %; Neutrophils # (auto) 6.13 K/uL (1.40-6.50); Platelet Count 280 K/uL (130-400); RDW Coefficient of Variation 13.2 % (11.5-14.5); RDW Standard Deviation 45.7 fL (36.4-46.3); Red Blood Count 4.02 M/uL (4.20-5.40); White Blood Count 8.07 K/ul (4.8-10.8)
[2022-07-17 21:21] LABS: Calcium 8.3 mg/dl (8.5-10.1); Potassium 4.2 mmol/L (3.5-5.1)
[2022-07-17 21:28] LABS: BUN Creatinine Ratio 10.7 (10-20); Creatinine Clr Calc Pharmacy 8.2 ml/min; Est GFR (African American) 5.9 ml/min; Est GFR (Non-African American) 5.1 ml/min
[2022-07-17] MEDS ORDERED: sulfaSALAzine 500 MG TABLET PO SCH (21:55)
[2022-07-17] MEDS ORDERED: LACTATED RINGER'S 1,000 ML IV SCH (21:55)
[2022-07-17] MEDS ORDERED: DEXTROSE 5% IV ONE ×2 (22:30→23:30)
[2022-07-17] MEDS ORDERED: METHYLPREDNISOLONE IV ONE ×2 (22:30→23:30)
[2022-07-17] MEDS ORDERED: ALBUTEROL HFA 8 GM INHALER INH PRN (22:45)
[2022-07-17] MEDS: HEPARIN SOD 5,000 UNIT/0.5 ML VIAL SQ SCH (23:07)
[2022-07-17] MEDS ORDERED: methylPREDNISolone 250 MG in SYRINGE 0 ML IV STA (23:07)
[2022-07-17] MEDS: LACTATED RINGER'S 1,000 ML IV SCH (23:07)
[2022-07-18] MEDS: HEPARIN SOD 5,000 UNIT/0.5 ML VIAL SQ SCH ×2 (07:41→20:46)
[2022-07-18] MEDS: DULoxetine HCL 20 MG CAP PO SCH (07:41)
[2022-07-18] MEDS: LACTATED RINGER'S 1,000 ML IV SCH ×2 (07:42→15:39)
[2022-07-18 08:06] LABS: Basophils # (auto) 0.01 K/uL (0-0.2); Basophils % (auto) 0.1 %; Hematocrit (blood only) 35.3 % (37.0-47.0); Hemoglobin 12.1 g/dl (12.0-16.0); Immature Granulocytes # (auto) 0.03 K/uL (0.01-0.20); Immature Granulocytes % (auto) 0.4 %; Lymphocytes # (auto) 1.01 K/uL (1.2-3.4); Lymphocytes % (auto) 11.9 %; Mean Corpuscular Hemoglobin 32.1 pg (25.0-34.0); Mean Corpuscular Hgb Conc 34.3 g/dL (32.0-36.0); Mean Corpuscular Volume 93.6 fL (80.0-100.0); Mean Platelet Volume 8.7 fL (9.4-12.4); Monocytes # (auto) 0.07 K/uL (0.11-0.59); Monocytes % (auto) 0.8 %; Neutrophils # (auto) 7.37 K/uL (1.40-6.50); Neutrophils % (auto) 86.8 %; Platelet Count 281 K/uL (130-400); RDW Standard Deviation 44.8 fL (36.4-46.3); Red Blood Count 3.77 M/uL (4.20-5.40); White Blood Count 8.49 K/ul (4.8-10.8)
[2022-07-18 09:00] LABS: Magnesium 2.1 mg/dl (1.7-2.4)
[2022-07-18 09:21] LABS: BUN Creatinine Ratio 10.3 (10-20); Calcium 8.7 mg/dl (8.5-10.1); Creatinine Clr Calc Pharmacy 7.7 ml/min; Est GFR (African American) 5.4 ml/min; Est GFR (Non-African American) 4.7 ml/min; Potassium 4.5 mmol/L (3.5-5.1)
--- NOTE | 2022-07-18 09:30 | Hospitalist Progress Note ---
Date of Service July 18, 2022 Assessment & Plan (1) LI (acute kidney injury): Plan: This is a 57-year-old female with history of fibromyalgia on sulfasalazine, GERD on omeprazole who presented to [facility] at the recommendation of her physician for rapidly-progressing non-oliguric LI of unknown etiology. Severe Non-oliguric LI, acute, severe risk * In context of several days' worth of fatigue, cough, sore throat (NEW MEDS: doxycycline, Phenergan, prednisone) * -- CT-A/P: "Mild nonspecific perinephric stranding." -- Urine microscopy demonstrating an active sediment showing microscopic hematuria -- Elevated inflammatory markers -- Pending GN serologies: ESR, CRP, hepatitis panel, HIV, C3/C4, ANCA+mpo+PR3 with reflex, TERESITA, dsDNA, anti-GBM * Appreciate nephrology consultation for diagnostic expertise --> I personally discussed his case [id number] with Dr. Adithya Hendrix on 07/18/2022. We will proceed with continue methylprednisolone 5 mg daily over the weekend. Continue with hydration. * Hold sulfasalazine, PPI, gabapentin * Avoid nephrotoxic medications (2) Lower respiratory infection: Plan: Lower Respiratory Illness acute moderate risk the patient * Approx. 3 days of cough, sore throat, fatigue; +vomiting and diarrhea x 1 day, now resolved * Reportedly tested positive for COVID-19 at home -- however, negative here x 2 * -- BCX pending given above severe LI -- CXR without acute processes -- Some bronchial wall thickening on CT-A/P * Largely suspect viral bronchitis at this time. Lower suspicion for bacterial PNA but can consider CT if clinically worsening. * Supportive care: steroids as above to be given, can add mucociliary clearance if desired. * Albuterol PRN ordered (3) Fibromyalgia: Plan: Fibromyalgia chronic and stable * Hold sulfasalazine, nortriptyline * Continue duloxetine (4) GERD (gastroesophageal reflux disease): Plan: GERD chronic and stable patient had flareup during hospital stay which will result in resumption of PPI * Plan Code: Full Diet: Low sodium PPX: Heparin b.i.d. Admission and Anticipated Discharge Date Admission Date: July 17, 2022 Subjective Patient is without distress she is not having shortness of breath. She has no pain or discomfort. Nausea vomiting is resolved. Family is at the bedside. I personally spoke to her significant other and updated him Physical Exam Physical Exam: Awake alert appropriate. Lungs are clear heart is regular without murmurs extremities are without edema at this time Results & Data Results & Data ([facility]) Vital Signs (Past 12 Hours) Vital Signs Temp Pulse Pulse Resp BP BP Pulse Ox 07/18/22 07:35 97.7 F 72 18 163/87 H 95 07/18/22 03:08 98.6 F 68 18 151/86 H 94 07/17/22 23:30 65 07/17/22 22:40 07/17/22 22:40 98.4 F 73 16 162/110 H 98 O2 Del Method 07/18/22 07:35 Room Air 07/18/22 03:08 Room Air 07/17/22 23:30 07/17/22 22:40 Room Air 07/17/22 22:40 Room Air Diagnostic Findings Reviewed PRP showing significant elevation of creatinine but stable potassium and bicarbonate Reviewed CBC PG Care Time/CCT Total # of Minutes Spent Total Time Spent with Patient: Total time spent is greater than 50% in coordination of care (as documented) at patient's floor/unit and/or counseling patient: Coding Level of Care Code 56462 SUB INP/OBS CARE 2MIN Diagnoses LI (acute kidney injury) N17.9 Lower respiratory infection J22 Fibromyalgia M79.7 GERD (gastroesophageal reflux disease) K21.9
[2022-07-18] MEDS ORDERED: methylPREDNISolone 500 MG in DEXTROSE 5% 250 ML IV SCH (13:45)
--- NOTE | 2022-07-18 14:14 | Nephrology Consultation ---
Date of Consultation July 18, 2022 Assessment & Plan (1) LI (acute kidney injury): Non-oliguric. Volume status and BP are acceptable. Medications appropriate for kidney function. Diclofenac on home medication list. Patricia however denies taking the medication or concerning recent NSAID use. Baseline creatinine <1 mg/dL a few days ago. No obstruction on imaging. UA +4 protein. Microscopy >30 WBC, 5-10 RBC. ESR is elevated at 72. DDx includes ATN in the setting of dehydration and recent viral illness, acute GN, or rapidly progressive AIN. Thankfully, creatinine stable. There is no emergent indication for dialysis. Interestingly, home COVID test was positive though negative at [facility]. Methylprednisolone 250 mg IV provided overnight. Continue 500 -1000 mg of IV methylprednisolone daily. Continue LR to encourage positive fluid balance. Eliminate any unnecessary antibiotics that were recently started. Serologic GN evaluation has been sent including screening for hepatitis B + C, HIV, ANCA, TERESITA, dsDNA, anti GB, and C3/C4. I informed Patricia this AM that she may require kidney biopsy for definitive diagnosis and if there is no improvement over the weekend. Plan of care was discussed with Dr. Merlos this AM. (2) Proteinuria: New and concerning for acute GN. Active urine sediment noted. (3) Microscopic hematuria: Urine culture pinpoint growth. Clinically not consistent with cystitis. Repeat UA microscopy requested now. History of Present Illness Reason for Consultation: [place] Requesting Physician: Wilmer Merlos MD Attending Physician: Wilmer Merlos MD History of Present Illness Patricia Torres is a 57 year-old female with fibromyalgia and GERD. She presented to [facility] yesterday for abnormal laboratory studies with a serum creatinine of >7 mg/dL. Creatinine had been <1 mg/dL earlier in the week. CT demonstrates the kidneys to be normal in size and without obstruction. Urine studies notable for +4 protein. Microscopy +WBCs and RBCs. Patricia developed symptoms on nausea and vomiting on Thursday. She including progressive fatigue, cough, sore throat. Home COVID test positive. Patricia was evaluated in the ER at [facility] the following day and had laboratory studies completed and IVF provided. Patricia then had a CXR and follow up with her PCP. She was prescribed prednisone, doxycycline with minimal relief in symptoms. Symptoms of nausea with vomiting and diarrhea persisted intermittent. It was not profuse. She denies any melena or hematochezia. COVID testing at [facility] was negative. She denies any concerning urine symptoms. She denies any rash. She has not had arthralgias, synovitis or joint effusions. She denies fluid retention or edema. Allergies Allergy/AdvReac Type Severity Reaction Status Date / Time codeine AdvReac Severe severe Verified 07/17/22 19:41 vomiting Home Medications Medication Instructions Recorded Confirmed Type cholecalciferol (vitamin D3) 25 50 mcg PO QAM 01/04/20 07/17/22 History mcg (1,000 unit) tablet (Vitamin D3) duloxetine 20 mg capsule,delayed 40 mg PO QAM 01/04/20 07/17/22 History release (Cymbalta) gabapentin 600 mg tablet 600 mg PO BID 01/04/20 07/17/22 History sulfasalazine 500 mg tablet 1,000 mg PO BID 01/04/20 07/17/22 History aspirin 81 mg tablet,delayed 81 mg PO BID #60 tabs 11/13/21 07/17/22 Rx release ondansetron 4 mg disintegrating 4 mg PO Q6H PRN nausea and 11/13/21 07/17/22 Rx tablet vomiting #15 tabs diclofenac sodium 75 mg 75 mg PO BID PRN pain #60 tabs 05/23/22 07/17/22 Rx tablet,delayed release doxycycline hyclate 100 mg capsule 100 mg PO BID 07/17/22 07/17/22 History nortriptyline 10 mg capsule 10 mg PO DAILY 07/17/22 07/17/22 History omeprazole 40 mg capsule,delayed 40 mg PO QAM 07/17/22 07/17/22 History release prednisone 20 mg tablet 20 mg PO DAILY 07/17/22 07/17/22 History trazodone 50 mg tablet 50 mg PO HS 07/17/22 07/17/22 History Patient History Medical History Fibromyalgia GERD (gastroesophageal reflux disease) History of anesthesia reaction very slow to wake up per patient Obesity (BMI 30.0-34.9) Osteoarthritis Right knee DJD Surgical History H/O wisdom tooth extraction History of carpal tunnel release bilateral History of cholecystectomy History of colonoscopy History of esophagogastroduodenoscopy (EGD) S/P arthroscopy of right knee Status post de Quervain's release surgery Family History Father Family history of diabetes mellitus Mother Family history of diabetes mellitus Other No family history of adverse response to anesthesia Social History Smoking Status: Never smoker Second Hand Exposure: No; Hx Alcohol Use: No Hx Substance Use: No Preferred Language: Maltese Communication Ability: Effective [employer]er Required: No Beliefs That Will Affect Care: None Current Living Situation: Significant Other Other Information That Helps Us Care for You: No Feels Safe at Home: Yes Safety Concerns: Feels Safe At This Time Assistive Devices: Glasses Review of Systems Review of Systems: All systems reviewed & are unremarkable except as noted in HPI & below Physical Exam Constitutional: well developed; no acute distress Eyes: no scleral abnormality and no corneal abnormality ENMT: Mouth: no oral mucosal abnormality and oral mucous membranes not dry Neck: normal visual inspection and trachea midline Respiratory: normal respiratory effort Auscultation: lungs clear to auscultation bilaterally Cardiovascular: Rate/Rhythm: regular rate Heart Sounds: normal S1 and normal S2 Extremities: no edema Musculoskeletal: Extremities: no cyanosis and no clubbing Skin: normal turgor; no lesions Neurologic: Motor/Sensory: no tremor and no asterixis Psychiatric: Orientation: alert and oriented x 3 Results & Data ([facility]) Vital Signs (Past 12 Hours) Vital Signs Temp Pulse Pulse Resp BP BP Pulse Ox 07/18/22 07:00 65 07/18/22 11:44 37 C 78 20 167/86 H 98 07/18/22 07:35 36.5 C 72 18 163/87 H 95 07/18/22 03:08 37 C 68 18 151/86 H 94 O2 Del Method 07/18/22 07:00 07/18/22 11:44 Room Air 07/18/22 07:35 Room Air 07/18/22 03:08 Room Air Laboratory Results Laboratory Results - last 24 hr 07/17/22 07/17/22 07/17/22 17:01 17:01 17:01 WBC Cancelled RBC Cancelled Hgb Cancelled POC Hgb Hct Cancelled POC Hct MCV Cancelled MCH Cancelled MCHC Cancelled RDW Std Deviation Cancelled RDW Coeff of Carmen Cancelled Plt Count Cancelled MPV Cancelled Immature Gran % (Auto) Cancelled Neut % (Auto) Cancelled Lymph % (Auto) Cancelled Berg[place] % (Auto) Cancelled Eos % (Auto) Cancelled Baso % (Auto) Cancelled Neut # (Auto) Cancelled Lymph # (Auto) Cancelled [place] # (Auto) Cancelled Eos # (Auto) Cancelled Baso # (Auto) Cancelled Immature Gran # (Auto) Cancelled Absolute Nucleated RBC Cancelled Nucleated RBC % (auto) Cancelled Neutrophils % (Manual) Cancelled Band Neutrophils % Cancelled Lymphocytes % (Manual) Cancelled Prolymphocyte % Cancelled Reactive Lymphs % (Man) Cancelled Monocytes % (Manual) Cancelled Eosinophils % (Manual) Cancelled Basophils % (Manual) Cancelled Metamyelocytes % (Man) Cancelled Myelocytes % (Man) Cancelled Promyelocytes % (Man) Cancelled Blast Cells % (Manual) Cancelled Plasma Cell % (Manual) Cancelled Other Cells % Cancelled Nucleated RBC % Cancelled Neutrophils # (Manual) Cancelled Band Neutrophils # Cancelled Total Absolute Neuts Cancelled Lymphocytes # (Manual) Cancelled Prolymphocyte # Cancelled Reactive Lymphs # Cancelled Total Abs Lymphocytes Cancelled Monocytes # (Manual) Cancelled Eosinophils # (Manual) Cancelled Basophils # (Manual) Cancelled Metamyelocytes # (Man) Cancelled Myelocytes # (Manual) Cancelled Promyelocytes # (Man) Cancelled Blast Cells # (Man) Cancelled Plasma Cell # (Manual) Cancelled Other Cells # Cancelled Nucleated RBCs # (Man) Cancelled Hypersegmented Neuts Cancelled Hyposegmented Neuts Cancelled Hypogranular Neuts Cancelled Large Granular Lymphs Cancelled # Lrg Granular Lymphs Cancelled Hairy Cells Cancelled Smudge Cells Cancelled Toxic Granulation Cancelled Toxic Vacuolation Cancelled Dohle Bodies Cancelled Nina Rods Cancelled Platelet Estimate Cancelled Hypogranular Platelets Cancelled Clumped Platelets Cancelled Giant Platelets Cancelled Platelet Satelliting Cancelled RBC Morphology Cancelled Polychromasia Cancelled Hypochromasia Cancelled Poikilocytosis Cancelled Basophilic Stippling Cancelled Anisocytosis Cancelled Microcytosis Cancelled Macrocytosis Cancelled Spherocytes Cancelled Pappenheimer Bodies Cancelled Sickle Cells Cancelled Target Cells Cancelled Tear Drop Cells Cancelled Ovalocytes Cancelled Stomatocytes Cancelled Johnston-Pollard Bodies Cancelled Echinocytes Cancelled Acanthocytes (Spur) Cancelled Rouleaux Cancelled RBC Agglutinates Cancelled Schistocytes Cancelled ESR Sezary Cell Cancelled POC Sodium Sodium 137 POC Potassium Potassium 4.1 POC Chloride Chloride 105 Carbon Dioxide 24 POC Total CO2 Anion Gap 8 POC Anion Gap POC BUN BUN 92 H Creatinine 8.36 H* D POC Creatinine Est Cr Clr Drug Dosing 7.7 Est GFR ( Amer) 5.5 Est GFR (Non-Af Amer) 4.8 BUN/Creatinine Ratio 11.0 Glucose 158 H POC Glucose (other) Calcium 9.2 POC Ioniz Calcium Ana Phosphorus Magnesium Total Bilirubin 0.3 AST 44 H ALT 43 Alkaline Phosphatase 112 H Total Creatine Kinase Total Protein 7.0 Albumin 3.3 L Globulin 3.7 Albumin/Globulin Ratio 0.9 Procalcitonin 0.27 Urine Color Urine Appearance Urine pH Ur Specific [place] Urine Protein Urine Glucose (UA) Urine Ketones Urine Blood Urine Nitrite Urine Bilirubin Urine Urobilinogen Ur Leukocyte Esterase Urine WBC (Auto) Urine RBC (Auto) U Hyaline Cast (Auto) U Epithel Cells (Auto) Urine Bacteria (Auto) Ur Random Creatinine Ur Random Microalbumin Ur Random Sodium TERESITA Screen Anti-Proteinase 3 Anti-Myeloperoxidase ANCA Double Strand DNA Ab Glomerular Base Memb Ab Complement C3 Complement C4 Tot Complement (CH50) SARS-CoV-2 (PCR) Hepatitis A IgM Ab Hep Bs Antigen Hep Bs Ag Confirmation Hep B Core IgM Ab Hepatitis C Ab (EIA) Hep C Ab Signal/Cutoff HIV (1&2) Ag & Ab Conf Influenza Type A (PCR) Influenza Type B (PCR) RSV (RT-PCR) SARS-CoV-2, RNA, NAAT Blood Parasites ID Cancelled 07/17/22 07/17/22 07/17/22 17:39 18:02 18:38 WBC 7.54 RBC 3.71 L Hgb 11.8 L POC Hgb 13.6 Hct 35.7 L POC Hct 40 MCV 96.2 MCH 31.8 MCHC 33.1 RDW Std Deviation 47.3 H RDW Coeff of Carmen 13.2 Plt Count 255 MPV 8.6 L Immature Gran % (Auto) 0.5 Neut % (Auto) 79.7 Lymph % (Auto) 13.7 Berg[place] % (Auto) 5.7 Eos % (Auto) 0.1 Baso % (Auto) 0.3 Neut # (Auto) 6.01 Lymph # (Auto) 1.03 L [place] # (Auto) 0.43 Eos # (Auto) 0.01 Baso # (Auto) 0.02 Immature Gran # (Auto) 0.04 Absolute Nucleated RBC Nucleated RBC % (auto) Neutrophils % (Manual) Band Neutrophils % Lymphocytes % (Manual) Prolymphocyte % Reactive Lymphs % (Man) Monocytes % (Manual) Eosinophils % (Manual) Basophils % (Manual) Metamyelocytes % (Man) Myelocytes % (Man) Promyelocytes % (Man) Blast Cells % (Manual) Plasma Cell % (Manual) Other Cells % Nucleated RBC % Neutrophils # (Manual) Band Neutrophils # Total Absolute Neuts Lymphocytes # (Manual) Prolymphocyte # Reactive Lymphs # Total Abs Lymphocytes Monocytes # (Manual) Eosinophils # (Manual) Basophils # (Manual) Metamyelocytes # (Man) Myelocytes # (Manual) Promyelocytes # (Man) Blast Cells # (Man) Plasma Cell # (Manual) Other Cells # Nucleated RBCs # (Man) Hypersegmented Neuts Hyposegmented Neuts Hypogranular Neuts Large Granular Lymphs # Lrg Granular Lymphs Hairy Cells Smudge Cells Toxic Granulation Toxic Vacuolation Dohle Bodies Nina Rods Platelet Estimate Hypogranular Platelets Clumped Platelets Giant Platelets Platelet Satelliting RBC Morphology Polychromasia Hypochromasia Poikilocytosis Basophilic Stippling Anisocytosis Microcytosis Macrocytosis Spherocytes Pappenheimer Bodies Sickle Cells Target Cells Tear Drop Cells Ovalocytes Stomatocytes Johnston-Pollard Bodies Echinocytes Acanthocytes (Spur) Rouleaux RBC Agglutinates Schistocytes ESR Sezary Cell POC Sodium 138 Sodium POC Potassium 4.4 Potassium POC Chloride 106 Chloride Carbon Dioxide POC Total CO2 24 Anion Gap POC Anion Gap 13.0 L POC BUN 85 H BUN Creatinine POC Creatinine 8.7 H* Est Cr Clr Drug Dosing Est GFR ( Amer) Est GFR (Non-Af Amer) BUN/Creatinine Ratio Glucose POC Glucose (other) 150 H Calcium POC Ioniz Calcium Ana 1.11 L Phosphorus Magnesium Total Bilirubin AST ALT Alkaline Phosphatase Total Creatine Kinase Total Protein Albumin Globulin Albumin/Globulin Ratio Procalcitonin Urine Color Urine Appearance Urine pH Ur Specific [place] Urine Protein Urine Glucose (UA) Urine Ketones Urine Blood Urine Nitrite Urine Bilirubin Urine Urobilinogen Ur Leukocyte Esterase Urine WBC (Auto) Urine RBC (Auto) U Hyaline Cast (Auto) U Epithel Cells (Auto) Urine Bacteria (Auto) Ur Random Creatinine Ur Random Microalbumin Ur Random Sodium TERESITA Screen Anti-Proteinase 3 Anti-Myeloperoxidase ANCA Double Strand DNA Ab Glomerular Base Memb Ab Complement C3 Complement C4 Tot Complement (CH50) SARS-CoV-2 (PCR) Hepatitis A IgM Ab Hep Bs Antigen Hep Bs Ag Confirmation Hep B Core IgM Ab Hepatitis C Ab (EIA) Hep C Ab Signal/Cutoff HIV (1&2) Ag & Ab Conf Influenza Type A (PCR) Influenza Type B (PCR) RSV (RT-PCR) SARS-CoV-2, RNA, NAAT NEGATIVE Blood Parasites ID 07/17/22 07/17/22 07/17/22 19:51 19:51 19:51 WBC RBC Hgb POC Hgb Hct POC Hct MCV MCH MCHC RDW Std Deviation RDW Coeff of Carmen Plt Count MPV Immature Gran % (Auto) Neut % (Auto) Lymph % (Auto) Berg[place] % (Auto) Eos % (Auto) Baso % (Auto) Neut # (Auto) Lymph # (Auto) [place] # (Auto) Eos # (Auto) Baso # (Auto) Immature Gran # (Auto) Absolute Nucleated RBC Nucleated RBC % (auto) Neutrophils % (Manual) Band Neutrophils % Lymphocytes % (Manual) Prolymphocyte % Reactive Lymphs % (Man) Monocytes % (Manual) Eosinophils % (Manual) Basophils % (Manual) Metamyelocytes % (Man) Myelocytes % (Man) Promyelocytes % (Man) Blast Cells % (Manual) Plasma Cell % (Manual) Other Cells % Nucleated RBC % Neutrophils # (Manual) Band Neutrophils # Total Absolute Neuts Lymphocytes # (Manual) Prolymphocyte # Reactive Lymphs # Total Abs Lymphocytes Monocytes # (Manual) Eosinophils # (Manual) Basophils # (Manual) Metamyelocytes # (Man) Myelocytes # (Manual) Promyelocytes # (Man) Blast Cells # (Man) Plasma Cell # (Manual) Other Cells # Nucleated RBCs # (Man) Hypersegmented Neuts Hyposegmented Neuts Hypogranular Neuts Large Granular Lymphs # Lrg Granular Lymphs Hairy Cells Smudge Cells Toxic Granulation Toxic Vacuolation Dohle Bodies Nina Rods Platelet Estimate Hypogranular Platelets Clumped Platelets Giant Platelets Platelet Satelliting RBC Morphology Polychromasia Hypochromasia Poikilocytosis Basophilic Stippling Anisocytosis Microcytosis Macrocytosis Spherocytes Pappenheimer Bodies Sickle Cells Target Cells Tear Drop Cells Ovalocytes Stomatocytes Johnston-Pollard Bodies Echinocytes Acanthocytes (Spur) Rouleaux RBC Agglutinates Schistocytes ESR Sezary Cell POC Sodium Sodium POC Potassium Potassium POC Chloride Chloride Carbon Dioxide POC Total CO2 Anion Gap POC Anion Gap POC BUN BUN Creatinine POC Creatinine Est Cr Clr Drug Dosing Est GFR ( Amer) Est GFR (Non-Af Amer) BUN/Creatinine Ratio Glucose POC Glucose (other) Calcium POC Ioniz Calcium Ana Phosphorus Magnesium Total Bilirubin AST ALT Alkaline Phosphatase Total Creatine Kinase Total Protein Albumin Globulin Albumin/Globulin Ratio Procalcitonin Urine Color Yellow Urine Appearance Turbid A Urine pH 6.0 Ur Specific [place] 1.027 Urine Protein 4+ H Urine Glucose (UA) Negative Urine Ketones Negative Urine Blood 2+ H Urine Nitrite Negative Urine Bilirubin Negative Urine Urobilinogen Negative Ur Leukocyte Esterase Negative Urine WBC (Auto) >30 H Urine RBC (Auto) 5-10 H U Hyaline Cast (Auto) 10-30 H U Epithel Cells (Auto) >30 H Urine Bacteria (Auto) Negative Ur Random Creatinine 133.1 Ur Random Microalbumin > 1350.0 Ur Random Sodium 40 TERESITA Screen Anti-Proteinase 3 Anti-Myeloperoxidase ANCA Double Strand DNA Ab Glomerular Base Memb Ab Complement C3 Complement C4 Tot Complement (CH50) SARS-CoV-2 (PCR) Hepatitis A IgM Ab Hep Bs Antigen Hep Bs Ag Confirmation Hep B Core IgM Ab Hepatitis C Ab (EIA) Hep C Ab Signal/Cutoff HIV (1&2) Ag & Ab Conf Influenza Type A (PCR) Influenza Type B (PCR) RSV (RT-PCR) SARS-CoV-2, RNA, NAAT Blood Parasites ID 07/17/22 07/17/22 07/17/22 19:51 20:10 20:10 WBC 8.07 RBC 4.02 L Hgb 12.6 POC Hgb Hct 37.7 POC Hct MCV 93.8 MCH 31.3 MCHC 33.4 RDW Std Deviation 45.7 RDW Coeff of Carmen 13.2 Plt Count 280 MPV 8.7 L Immature Gran % (Auto) 0.7 Neut % (Auto) 76.0 Lymph % (Auto) 16.0 Berg[place] % (Auto) 6.9 Eos % (Auto) 0.0 Baso % (Auto) 0.4 Neut # (Auto) 6.13 Lymph # (Auto) 1.29 Berg[place] # (Auto) 0.56 Eos # (Auto) 0.00 Baso # (Auto) 0.03 Immature Gran # (Auto) 0.06 Absolute Nucleated RBC Nucleated RBC % (auto) Neutrophils % (Manual) Band Neutrophils % Lymphocytes % (Manual) Prolymphocyte % Reactive Lymphs % (Man) Monocytes % (Manual) Eosinophils % (Manual) Basophils % (Manual) Metamyelocytes % (Man) Myelocytes % (Man) Promyelocytes % (Man) Blast Cells % (Manual) Plasma Cell % (Manual) Other Cells % Nucleated RBC % Neutrophils # (Manual) Band Neutrophils # Total Absolute Neuts Lymphocytes # (Manual) Prolymphocyte # Reactive Lymphs # Total Abs Lymphocytes Monocytes # (Manual) Eosinophils # (Manual) Basophils # (Manual) Metamyelocytes # (Man) Myelocytes # (Manual) Promyelocytes # (Man) Blast Cells # (Man) Plasma Cell # (Manual) Other Cells # Nucleated RBCs # (Man) Hypersegmented Neuts Hyposegmented Neuts Hypogranular Neuts Large Granular Lymphs # Lrg Granular Lymphs Hairy Cells Smudge Cells Toxic Granulation Toxic Vacuolation Dohle Bodies Nina Rods Platelet Estimate Hypogranular Platelets Clumped Platelets Giant Platelets Platelet Satelliting RBC Morphology Polychromasia Hypochromasia Poikilocytosis Basophilic Stippling Anisocytosis Microcytosis Macrocytosis Spherocytes Pappenheimer Bodies Sickle Cells Target Cells Tear Drop Cells Ovalocytes Stomatocytes Johnston-Pollard Bodies Echinocytes Acanthocytes (Spur) Rouleaux RBC Agglutinates Schistocytes ESR Sezary Cell POC Sodium Sodium 138 POC Potassium Potassium 4.2 POC Chloride Chloride 107 Carbon Dioxide 22 POC Total CO2 Anion Gap 9 POC Anion Gap POC BUN BUN 84 H Creatinine 7.87 H* D POC Creatinine Est Cr Clr Drug Dosing 8.2 Est GFR ( Amer) 5.9 Est GFR (Non-Af Amer) 5.1 BUN/Creatinine Ratio 10.7 Glucose 128 H POC Glucose (other) Calcium 8.3 L POC Ioniz Calcium Ana Phosphorus Magnesium Total Bilirubin AST ALT Alkaline Phosphatase Total Creatine Kinase 128 Total Protein Albumin Globulin Albumin/Globulin Ratio Procalcitonin Urine Color Urine Appearance Urine pH Ur Specific [place] Urine Protein Urine Glucose (UA) Urine Ketones Urine Blood Urine Nitrite Urine Bilirubin Urine Urobilinogen Ur Leukocyte Esterase Urine WBC (Auto) Urine RBC (Auto) U Hyaline Cast (Auto) U Epithel Cells (Auto) Urine Bacteria (Auto) Ur Random Creatinine Ur Random Microalbumin Ur Random Sodium TERESITA Screen Anti-Proteinase 3 Anti-Myeloperoxidase ANCA Double Strand DNA Ab Glomerular Base Memb Ab Complement C3 Complement C4 Tot Complement (CH50) SARS-CoV-2 (PCR) NEGATIVE Hepatitis A IgM Ab Hep Bs Antigen Hep Bs Ag Confirmation Hep B Core IgM Ab Hepatitis C Ab (EIA) Hep C Ab Signal/Cutoff HIV (1&2) Ag & Ab Conf Influenza Type A (PCR) Negative Influenza Type B (PCR) Negative RSV (RT-PCR) Negative SARS-CoV-2, RNA, NAAT Blood Parasites ID 07/17/22 07/17/22 07/17/22 20:21 23:24 23:24 WBC RBC Hgb POC Hgb Hct POC Hct MCV MCH MCHC RDW Std Deviation RDW Coeff of Carmen Plt Count MPV Immature Gran % (Auto) Neut % (Auto) Lymph % (Auto) [place] % (Auto) Eos % (Auto) Baso % (Auto) Neut # (Auto) Lymph # (Auto) [place] # (Auto) Eos # (Auto) Baso # (Auto) Immature Gran # (Auto) Absolute Nucleated RBC Nucleated RBC % (auto) Neutrophils % (Manual) Band Neutrophils % Lymphocytes % (Manual) Prolymphocyte % Reactive Lymphs % (Man) Monocytes % (Manual) Eosinophils % (Manual) Basophils % (Manual) Metamyelocytes % (Man) Myelocytes % (Man) Promyelocytes % (Man) Blast Cells % (Manual) Plasma Cell % (Manual) Other Cells % Nucleated RBC % Neutrophils # (Manual) Band Neutrophils # Total Absolute Neuts Lymphocytes # (Manual) Prolymphocyte # Reactive Lymphs # Total Abs Lymphocytes Monocytes # (Manual) Eosinophils # (Manual) Basophils # (Manual) Metamyelocytes # (Man) Myelocytes # (Manual) Promyelocytes # (Man) Blast Cells # (Man) Plasma Cell # (Manual) Other Cells # Nucleated RBCs # (Man) Hypersegmented Neuts Hyposegmented Neuts Hypogranular Neuts Large Granular Lymphs # Lrg Granular Lymphs Hairy Cells Smudge Cells Toxic Granulation Toxic Vacuolation Dohle Bodies Nina Rods Platelet Estimate Hypogranular Platelets Clumped Platelets Giant Platelets Platelet Satelliting RBC Morphology Polychromasia Hypochromasia Poikilocytosis Basophilic Stippling Anisocytosis Microcytosis Macrocytosis Spherocytes Pappenheimer Bodies Sickle Cells Target Cells Tear Drop Cells Ovalocytes Stomatocytes Johnston-Pollard Bodies Echinocytes Acanthocytes (Spur) Rouleaux RBC Agglutinates Schistocytes ESR 72 H Sezary Cell POC Sodium Sodium POC Potassium Potassium POC Chloride Chloride Carbon Dioxide POC Total CO2 Anion Gap POC Anion Gap POC BUN BUN Creatinine POC Creatinine Est Cr Clr Drug Dosing Est GFR ( Amer) Est GFR (Non-Af Amer) BUN/Creatinine Ratio Glucose POC Glucose (other) Calcium POC Ioniz Calcium Ana Phosphorus Magnesium Total Bilirubin AST ALT Alkaline Phosphatase Total Creatine Kinase Total Protein Albumin Globulin Albumin/Globulin Ratio Procalcitonin Urine Color Urine Appearance Urine pH Ur Specific [place] Urine Protein Urine Glucose (UA) Urine Ketones Urine Blood Urine Nitrite Urine Bilirubin Urine Urobilinogen Ur Leukocyte Esterase Urine WBC (Auto) Urine RBC (Auto) U Hyaline Cast (Auto) U Epithel Cells (Auto) Urine Bacteria (Auto) Ur Random Creatinine Ur Random Microalbumin Ur Random Sodium TERESITA Screen Pending Anti-Proteinase 3 Pending Anti-Myeloperoxidase Pending ANCA Pending Double Strand DNA Ab Pending Glomerular Base Memb Ab Pending Complement C3 Pending Complement C4 Pending Tot Complement (CH50) Pending SARS-CoV-2 (PCR) Hepatitis A IgM Ab Pending Hep Bs Antigen Pending Hep Bs Ag Confirmation Pending Hep B Core IgM Ab Pending Hepatitis C Ab (EIA) Pending Hep C Ab Signal/Cutoff Pending HIV (1&2) Ag & Ab Conf Pending Influenza Type A (PCR) Influenza Type B (PCR) RSV (RT-PCR) SARS-CoV-2, RNA, NAAT Blood Parasites ID 07/18/22 07/18/22 07/18/22 06:54 06:54 06:54 WBC 8.49 RBC 3.77 L Hgb 12.1 POC Hgb Hct 35.3 L POC Hct MCV 93.6 MCH 32.1 MCHC 34.3 RDW Std Deviation 44.8 RDW Coeff of Carmen 13.0 Plt Count 281 MPV 8.7 L Immature Gran % (Auto) 0.4 Neut % (Auto) 86.8 Lymph % (Auto) 11.9 [place] % (Auto) 0.8 Eos % (Auto) 0.0 Baso % (Auto) 0.1 Neut # (Auto) 7.37 H Lymph # (Auto) 1.01 L [place] # (Auto) 0.07 L Eos # (Auto) 0.00 Baso # (Auto) 0.01 Immature Gran # (Auto) 0.03 Absolute Nucleated RBC Nucleated RBC % (auto) Neutrophils % (Manual) Band Neutrophils % Lymphocytes % (Manual) Prolymphocyte % Reactive Lymphs % (Man) Monocytes % (Manual) Eosinophils % (Manual) Basophils % (Manual) Metamyelocytes % (Man) Myelocytes % (Man) Promyelocytes % (Man) Blast Cells % (Manual) Plasma Cell % (Manual) Other Cells % Nucleated RBC % Neutrophils # (Manual) Band Neutrophils # Total Absolute Neuts Lymphocytes # (Manual) Prolymphocyte # Reactive Lymphs # Total Abs Lymphocytes Monocytes # (Manual) Eosinophils # (Manual) Basophils # (Manual) Metamyelocytes # (Man) Myelocytes # (Manual) Promyelocytes # (Man) Blast Cells # (Man) Plasma Cell # (Manual) Other Cells # Nucleated RBCs # (Man) Hypersegmented Neuts Hyposegmented Neuts Hypogranular Neuts Large Granular Lymphs # Lrg Granular Lymphs Hairy Cells Smudge Cells Toxic Granulation Toxic Vacuolation Dohle Bodies Nina Rods Platelet Estimate Hypogranular Platelets Clumped Platelets Giant Platelets Platelet Satelliting RBC Morphology Polychromasia Hypochromasia Poikilocytosis Basophilic Stippling Anisocytosis Microcytosis Macrocytosis Spherocytes Pappenheimer Bodies Sickle Cells Target Cells Tear Drop Cells Ovalocytes Stomatocytes Johnston-Pollard Bodies Echinocytes Acanthocytes (Spur) Rouleaux RBC Agglutinates Schistocytes ESR Sezary Cell POC Sodium Sodium 137 POC Potassium Potassium 4.5 POC Chloride Chloride 106 Carbon Dioxide 23 POC Total CO2 Anion Gap 8 POC Anion Gap POC BUN BUN 87 H Creatinine 8.48 H* D POC Creatinine Est Cr Clr Drug Dosing 7.7 Est GFR ( Amer) 5.4 Est GFR (Non-Af Amer) 4.7 BUN/Creatinine Ratio 10.3 Glucose 159 H POC Glucose (other) Calcium 8.7 POC Ioniz Calcium Ana Phosphorus 5.0 H Magnesium 2.1 Total Bilirubin AST ALT Alkaline Phosphatase Total Creatine Kinase Total Protein Albumin Globulin Albumin/Globulin Ratio Procalcitonin Urine Color Urine Appearance Urine pH Ur Specific [place] Urine Protein Urine Glucose (UA) Urine Ketones Urine Blood Urine Nitrite Urine Bilirubin Urine Urobilinogen Ur Leukocyte Esterase Urine WBC (Auto) Urine RBC (Auto) U Hyaline Cast (Auto) U Epithel Cells (Auto) Urine Bacteria (Auto) Ur Random Creatinine Ur Random Microalbumin Ur Random Sodium TERESITA Screen Anti-Proteinase 3 Anti-Myeloperoxidase ANCA Double Strand DNA Ab Glomerular Base Memb Ab Complement C3 Complement C4 Tot Complement (CH50) SARS-CoV-2 (PCR) Hepatitis A IgM Ab Hep Bs Antigen Hep Bs Ag Confirmation Hep B Core IgM Ab Hepatitis C Ab (EIA) Hep C Ab Signal/Cutoff HIV (1&2) Ag & Ab Conf Influenza Type A (PCR) Influenza Type B (PCR) RSV (RT-PCR) SARS-CoV-2, RNA, NAAT Blood Parasites ID Diagnostic Findings ABDOMEN AND PELVIS CT WITHOUT CONTRAST: COMPARISON STUDY: CT abdomen pelvis 10/26/2017 FINDINGS: Bibasilar bronchial wall thickening. Mild bibasilar atelectasis. No pneumatosis or pneumoperitoneum. The unenhanced spleen, pancreas and adrenal glands are unremarkable. Cholecystectomy. Unremarkable liver. There is mild nonspecific right greater left perinephric stranding. No renal or ureteral calculi or hydronephrosis. Decompressed urinary bladder with mild wall thickening. Unremarkable uterus. Atherosclerosis of the aorta. No lymphadenopathy. No bowel obstruction or bowel wall thickening. Normal appendix. Tiny fat filled umbilical hernia. No acute fracture. Degenerative changes of the spine, pelvis and hips. IMPRESSION: 1. No bowel obstruction or bowel wall thickening. Normal appendix. 2. Mild nonspecific bilateral perinephric stranding. Correlate with urinalysis. 3. No urolith or hydronephrosis PG Care Time/CCT Total # of Minutes Spent Total Time Spent with Patient: Total time spent is greater than 50% in coordination of care (as documented) at patient's floor/unit and/or counseling patient: Coding Level of Care Code INP/OBS CONSULT LVL 4, 60 MIN Diagnoses LI (acute kidney injury) N17.9 Proteinuria R80.9 Microscopic hematuria R31.29
[2022-07-18] MEDS: PANTOprazole 40 MG TAB PO SCH (15:47)
[2022-07-18 19:44] LABS: Appearance Urine Turbid (Clear); Bacteria Urine Automated 1+ (Negative); Bilirubin Urine Negative (Negative); Blood Urine 2+ (Negative); Color Urine Yellow; Epithelial Cell Urine Auto >30 /lpf (0-5); Glucose Urine UA Negative (Negative); Ketones Urine Negative (Negative); Leukocyte Esterase Urine 2+ (Negative); Nitrite Urine Negative (Negative); Protein Urine 4+ (Negative); Urobilinogen Urine Negative (Negative); WBC Urine Automated >30 /hpf (0-5)
[2022-07-18 20:42] LABS: Creatinine Urine Random 92.2 mg/dl; Total Protein Urine Random > 1000.0 mg/dl (0-11.9)
--- NOTE | 2022-07-18 21:11 | Billing Data ---
Date of Service July 18, 2022 Coding Level of Care Code 33163 INT INP/OBS CARE
[2022-07-19] MEDS: LACTATED RINGER'S 1,000 ML IV SCH ×3 (00:51→14:24)
[2022-07-19 07:20] LABS: Hematocrit (blood only) 33.8 % (37.0-47.0); Hemoglobin 11.5 g/dl (12.0-16.0); Mean Corpuscular Hemoglobin 31.7 pg (25.0-34.0); Mean Corpuscular Volume 93.1 fL (80.0-100.0); Mean Platelet Volume 8.9 fL (9.4-12.4); Platelet Count 291 K/uL (130-400); RDW Coefficient of Variation 12.8 % (11.5-14.5); Red Blood Count 3.63 M/uL (4.20-5.40); White Blood Count 10.64 K/ul (4.8-10.8)
--- NOTE | 2022-07-19 07:39 | Hospitalist Progress Note ---
Date of Service July 19, 2022 Assessment & Plan (1) LI (acute kidney injury): Plan: This is a 57-year-old female with history of fibromyalgia on sulfasalazine, GERD on omeprazole who presented to [facility] at the recommendation of her physician for rapidly-progressing non-oliguric LI of unknown etiology. Severe Non-oliguric LI acute and serious risk *initial URI sx on 07/11/22 (NEW MEDS: doxycycline, Phenergan, prednisone) was in ER on 07/14 released on diclofenac (pt did not take) pt states typically takes 2 advil a day for years to help arthralgias Cr at that time 0.082 return on 07/17 with Cr 7.64, now risen to 9 reportedly did have + home covid test has been negative here * admission ua shows active sediment and inflammatory markers elevated -- potassium and bicarbinate remain stable -- CT-A/P: "Mild nonspecific perinephric stranding." no obstructive issues seen -- negative blood cultures to date -- Check BCX -- Check GN serologies: , hepatitis panel, HIV, C3/C4, ANCA+mpo+PR3 with reflex, TERESITA, dsDNA, anti-GBM sned out labs pending * Appreciate nephrology consultation for diagnostic expertise --> methylprednisolone 250mg IV in er, 500 mg iv on 07/18 now 1000mg daily I personally spoke to neprhology here and 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 3 days of cough, sore throat, fatigue; +vomiting and diarrhea x 1 day, now resolved * Reportedly tested positive for COVID-19 at home --negative pcr on presentation -- CXR without acute processes -- Some bronchial wall thickening on CT-A/P (3) Fibromyalgia: Plan: Fibromyalgia * Hold sulfasalazine, nortriptyline * Continue duloxetine (4) GERD (gastroesophageal reflux disease): Plan: GERD * resume PPI Plan Code: Full Diet: Low sodium PPX: Heparin b.i.d. Admission and Anticipated Discharge Date Admission Date: July 17, 2022 Subjective pt was tearful this am discussing the possibility of Dialysis and kidney biopsy. she has c/o feeilng puffy and is about 6 liters positive Physical Exam Physical Exam: The patient appeared stable Vital signs as documented. Lungs are clear to auscultation and appear unlabored Cardiac exam, Rhythm is regular.. No murmurs, rubs or gallops. Abdominal exam reveals normal bowel sounds, soft non tender, no masses Extremities are with trace edema Psychologically is tearful and anxious Results & Data Results & Data ([facility] [place]) Vital Signs (Past 12 Hours) Vital Signs Temp Pulse Pulse Resp BP Pulse Ox O2 Del Method 07/19/22 03:05 97.9 F 70 18 130/72 92 Room Air 07/18/22 23:43 Room Air 07/18/22 23:43 61 07/18/22 23:00 97.7 F 63 18 136/82 92 Room Air Laboratory Results Reviewed CBC Reviewed chemistry worsening renal failure PG Care Time/CCT Total # of Minutes Spent Total Time Spent with Patient: Total time spent is greater than 50% in coordination of care (as documented) at patient's floor/unit and/or counseling patient: Coding Level of Care Code 34813 SUB INP/OBS CARE 3/50MIN Diagnoses LI (acute kidney injury) N17.9 Lower respiratory infection J22 Fibromyalgia M79.7 GERD (gastroesophageal reflux disease) K21.9
[2022-07-19 07:56] LABS: Albumin Globulin Ratio 0.9 (0.9-2); Albumin Level 2.6 gm/dl (3.4-5.0); BUN Creatinine Ratio 9.8 (10-20); Bilirubin,Total 0.3 mg/dl (0.2-1.0); Calcium 8.6 mg/dl (8.5-10.1); Est GFR (African American) 4.7 ml/min; Globulin 2.9 gm/dl (2.5-4.0); Potassium 4.7 mmol/L (3.5-5.1); Total Protein 5.5 gm/dl (6.0-8.3)
[2022-07-19] MEDS: HEPARIN SOD 5,000 UNIT/0.5 ML VIAL SQ SCH ×2 (08:46→19:39)
[2022-07-19] MEDS: PANTOprazole 40 MG TAB PO SCH (08:46)
[2022-07-19] MEDS: DULoxetine HCL 20 MG CAP PO SCH (08:46)
--- NOTE | 2022-07-19 08:49 | Nephrology Progress Note ---
Date of Service July 19, 2022 Assessment & Plan (1) LI (acute kidney injury): Plan: * RPGN. Nephrotic range proteinuria w/ nephritic sediment. Ddx remains broad. Recent + home test for COVID raises concern for COVAN. Recommend transfer to tertiary care center for [place] kidney biopsy to assist w/ diagnosis and prognosis * Baseline Cr 0.9 07/04/22 * Await results of serologic/immunologic testing * 07/17/22 urine and blood cultures are negative * Abdominal CT was negative for hydronephrosis. Will order renal US for renal measurements * Continue Solumedrol 1g IV x 3 days, then change to Prednisone 60 mg po daily * Volume status and electrolyte balance are acceptable. No acute indication for HD at this time * Monitor PRP, UO * Discussed need for renal biopsy and potential need for HD w/ Ms. Torres this morning. She is agreeable to both if necessary Admission and Anticipated Discharge Date Admission Date: July 17, 2022 Subjective Ms. Torres was evaluated in her hospital room this morning. She denied fever, flank pain, gross hematuria, hair loss, oral ulceration, skin rash, angina or dyspnea. She has a h/o fibromyalgia and suffers from chronic joint pain. She had been taking two Advil daily for at least the last 2 years. Review of Systems Constitutional: no fever Eyes: no problem reported Ear, Nose, Mouth, Throat: no problem reported Respiratory: no dyspnea Cardiovascular: no chest pain Gastrointestinal: no abdominal pain, no vomiting and no diarrhea/loose stools Genitourinary: no dysuria Integumentary: no rash Neurologic: no localized weakness, no seizure-like activity and no syncope Physical Exam Constitutional: not in distress Eyes: PERRL, conjunctivae normal, anicteric sclerae ENMT: external ear and nose normal, oropharynx normal Neck: trachea midline, no thyromegaly Respiratory: normal respiratory effort, lungs clear to auscultation Cardiovascular: RRR, no murmur, no edema Gastrointestinal (Abdomen): normal bowel sounds, soft, nontender, no hepatosplenomegaly Skin: no rashes, warm and dry Neurologic: Speech / Cognition: normal speech and normal cognition Psychiatric: A+Ox3, euthymic affect Results & Data ([facility]) Vital Signs (Past 12 Hours) Vital Signs Temp Pulse Pulse Pulse Resp BP Pulse Ox 07/19/22 07:50 36.8 C 69 18 101/70 96 07/19/22 03:05 36.6 C 70 18 130/72 92 07/18/22 23:43 07/18/22 23:43 61 07/18/22 23:00 36.5 C 63 18 136/82 92 O2 Del Method 07/19/22 07:50 Room Air 07/19/22 03:05 Room Air 07/18/22 23:43 Room Air 07/18/22 23:43 07/18/22 23:00 Room Air Laboratory Results Laboratory Tests 07/17/22 07/17/22 07/17/22 19:51 23:24 23:24 WBC Hgb Hct Plt Count INR Sodium Potassium Chloride Carbon Dioxide BUN Creatinine Glucose Calcium Total Bilirubin AST ALT Alkaline Phosphatase Albumin TERESITA Screen Pending Anti-Proteinase 3 Pending Anti-Myeloperoxidase Pending ANCA Pending Double Strand DNA Ab Pending Glomerular Base Memb Ab Pending SARS-CoV-2 (PCR) NEGATIVE Hepatitis A IgM Ab Pending Hep Bs Antigen Pending Hepatitis C Ab (EIA) Pending HIV (1&2) Ag & Ab Conf Pending Influenza Type A (PCR) Negative Influenza Type B (PCR) Negative RSV (RT-PCR) Negative 07/19/22 07/19/22 07/19/22 06:39 06:39 06:39 WBC 10.64 Hgb 11.5 L Hct 33.8 L Plt Count 291 INR 1.0 Sodium 136 Potassium 4.7 Chloride 106 Carbon Dioxide 23 BUN 94 H Creatinine 9.56 H* D Glucose 136 H Calcium 8.6 Total Bilirubin 0.3 AST 29 ALT 36 Alkaline Phosphatase 81 Albumin 2.6 L TERESITA Screen Anti-Proteinase 3 Anti-Myeloperoxidase ANCA Double Strand DNA Ab Glomerular Base Memb Ab SARS-CoV-2 (PCR) Hepatitis A IgM Ab Hep Bs Antigen Hepatitis C Ab (EIA) HIV (1&2) Ag & Ab Conf Influenza Type A (PCR) Influenza Type B (PCR) RSV (RT-PCR) Laboratory Tests 07/18/22 07/18/22 19:20 19:20 Ur Specific [place] 1.020 Urine Protein 4+ H Urine Glucose (UA) Negative Urine Blood 2+ H Urine WBC (Auto) >30 H Urine RBC (Auto) 5-10 H U Random Total Protein > 1000.0 H Protein/Creatinin Ratio TNP Laboratory Tests 07/19/22 Unknown SARS-CoV-2 (PCR) NEGATIVE Diagnostic Findings 07/17/[address]: 1. No bowel obstruction or bowel wall thickening. Normal appendix. 2. There is mild nonspecific right greater left perinephric stranding. No renal or ureteral calculi or hydronephrosis. Decompressed urinary bladder with mild wall thickening 3. No urolith or hydronephrosis. PG Care Time/CCT Total # of Minutes Spent Total Time Spent with Patient: Total time spent is greater than 50% in coordination of care (as documented) at patient's floor/unit and/or counseling patient: Coding Level of Care Code 66800 SUB INP/OBS CARE 50MIN Diagnoses LI (acute kidney injury) N17.9
[2022-07-19] MEDS: methylPREDNISolone 1,000 MG in DEXTROSE 5% 250 ML IV SCH (11:24)
[2022-07-19 16:28] LABS: Appearance Urine Cloudy (Clear); Bilirubin Urine Negative (Negative); Blood Urine 1+ (Negative); Color Urine Yellow; Epithelial Cell Urine Auto >30 /lpf (0-5); Glucose Urine UA Trace (Negative); Ketones Urine Negative (Negative); Leukocyte Esterase Urine Negative (Negative); Nitrite Urine Negative (Negative); Protein Urine 4+ (Negative); Specific Gravity Urine 1.017 (1.000-1.030); Urobilinogen Urine Negative (Negative)
[2022-07-19 16:54] LABS: Bacteria Urine Automated 1+ (Negative)
--- NOTE | 2022-07-19 17:52 | Ultrasound Report ---
RENAL ULTRASOUND HISTORY: Acute kidney injury LI COMPARISON: CT abdomen and pelvis May 16, 2023 FINDINGS: Right kidney: 11.4 No hydronephrosis. Normal corticomedullary differentiation and cortical thickness. Left kidney: 11.8 No hydronephrosis. Normal corticomedullary differentiation and cortical thickness. Bladder: Decompressed urinary bladder with Moy catheter. IMPRESSION: No renal calculi or hydronephrosis. ACT 112: Negative or not required by law. Electronically signed by: Martell Murillo M.D. 07/19/2022 5:51 PM
[2022-07-19] MEDS ORDERED: ACETAMINOPHEN 500 MG TAB PO PRN (18:26)
[2022-07-19] MEDS: ACETAMINOPHEN 500 MG TAB PO PRN (18:45)
[2022-07-19] MEDS: LORazepam 0.5 MG TAB PO PRN (21:22)
[2022-07-20 06:45] LABS: Hemoglobin 11.4 g/dl (12.0-16.0); Mean Corpuscular Hgb Conc 34.5 g/dL (32.0-36.0); Mean Corpuscular Volume 92.7 fL (80.0-100.0); Mean Platelet Volume 8.7 fL (9.4-12.4); Platelet Count 316 K/uL (130-400); RDW Coefficient of Variation 12.9 % (11.5-14.5); RDW Standard Deviation 43.7 fL (36.4-46.3); Red Blood Count 3.56 M/uL (4.20-5.40)
[2022-07-20 06:59] LABS: BUN Creatinine Ratio 10.3 (10-20); Calcium 8.6 mg/dl (8.5-10.1); Creatinine Clr Calc Pharmacy 6.4 ml/min; Est GFR (African American) 4.3 ml/min; Est GFR (Non-African American) 3.7 ml/min; Potassium 5.5 mmol/L (3.5-5.1)
[2022-07-20] MEDS: PANTOprazole 40 MG TAB PO SCH (07:43)
[2022-07-20] MEDS: DULoxetine HCL 20 MG CAP PO SCH (07:43)
[2022-07-20] MEDS: HEPARIN SOD 5,000 UNIT/0.5 ML VIAL SQ SCH ×2 (07:43→19:54)
--- NOTE | 2022-07-20 08:37 | Nephrology Progress Note ---
Date of Service July 20, 2022 Assessment & Plan (1) LI (acute kidney injury): Plan: * RPGN. Nephrotic range proteinuria. Urine sediment is difficult to assess due to indwelling Moy catheter. Urinalysis 07/19/22 dose show granular casts. Ddx remains broad. Recent + home test for COVID raises concern for COVAN * Will consult Vascular Surgery for IJ THC placement tomorrow am and make patient NPO after MN * Will plan 1st run HD tomorrow after surgery * Once stable on HD, recommend transfer to tertiary care center for [place] kidney biopsy to assist w/ diagnosis and prognosis * Baseline Cr 0.9 07/04/22 * Await results of serologic/immunologic testing. Will add SPEP/UPEP * 07/17/22 urine and blood cultures are negative * Abdominal CT was negative for hydronephrosis * 07/19/22 renal US: R 11.4, L 11.8. No hydronephrosis. Normal corticomedullary differentiation and cortical thickness. Bladder decompressed with Moy catheter. * Continue Solumedrol 1g IV daily (today is day #3). Recommend change to Prednisone 60 mg po daily in am * Monitor PRP, UO * Discussed need for renal biopsy and potential need for HD w/ Ms. Torres and primary service this morning. She is agreeable to the above outlined plan of care * Agree w/ primary service's management of hyperkalemia (Patiromer, Furosemide) Admission and Anticipated Discharge Date Admission Date: July 17, 2022 Subjective Ms. Torres was evaluated in her hospital room this morning. She voiced no new medical concerns Review of Systems Constitutional: no fever Eyes: no problem reported Ear, Nose, Mouth, Throat: no problem reported Respiratory: no dyspnea Cardiovascular: no chest pain Gastrointestinal: no abdominal pain, no vomiting and no diarrhea/loose stools Genitourinary: no dysuria Integumentary: no rash Neurologic: no localized weakness, no seizure-like activity and no syncope Physical Exam Constitutional: not in distress Eyes: PERRL, conjunctivae normal, anicteric sclerae ENMT: external ear and nose normal, oropharynx normal Neck: trachea midline, no thyromegaly Respiratory: normal respiratory effort, lungs clear to auscultation Cardiovascular: RRR, no murmur, no edema Gastrointestinal (Abdomen): normal bowel sounds, soft, nontender, no hepatosplenomegaly Skin: no rashes, warm and dry Neurologic: Speech / Cognition: normal speech and normal cognition Psychiatric: A+Ox3, euthymic affect Results & Data ([facility]) Vital Signs (Past 12 Hours) Vital Signs Temp Pulse Resp BP Pulse Ox O2 Del Method 07/20/22 07:37 36.8 C 72 18 131/82 96 Room Air 07/19/22 22:54 37.1 C 67 18 142/84 H 95 Room Air 07/19/22 22:53 Room Air Laboratory Results Laboratory Tests 07/17/22 07/17/22 07/17/22 19:51 23:24 23:24 WBC Hgb Hct Plt Count INR Sodium Potassium Chloride Carbon Dioxide BUN Creatinine Glucose Albumin Urine Protein Urine Blood Urine WBC (Auto) Urine RBC (Auto) Granular Casts U Random Total Protein Protein/Creatinin Ratio TERESITA Screen Pending Anti-Proteinase 3 Pending Anti-Myeloperoxidase Pending ANCA Pending Double Strand DNA Ab Pending Glomerular Base Memb Ab Pending Complement C3 Complement C4 Tot Complement (CH50) SARS-CoV-2 (PCR) Hepatitis A IgM Ab Pending Hep Bs Antigen Pending Hep Bs Ag Confirmation Pending Hep B Core IgM Ab Pending Hepatitis C Ab (EIA) Pending Hep C Ab Signal/Cutoff Pending HIV (1&2) Ag & Ab Conf NON-REACTIVE Influenza Type A (PCR) Negative Influenza Type B (PCR) Negative RSV (RT-PCR) Negative 07/18/22 07/19/22 07/19/22 19:20 06:39 06:39 WBC Hgb Hct Plt Count INR 1.0 Sodium Potassium Chloride Carbon Dioxide BUN Creatinine Glucose Albumin 2.6 L Urine Protein Urine Blood Urine WBC (Auto) Urine RBC (Auto) Granular Casts U Random Total Protein > 1000.0 H Protein/Creatinin Ratio TNP TERESITA Screen Anti-Proteinase 3 Anti-Myeloperoxidase ANCA Double Strand DNA Ab Glomerular Base Memb Ab Complement C3 Complement C4 Tot Complement (CH50) SARS-CoV-2 (PCR) Hepatitis A IgM Ab Hep Bs Antigen Hep Bs Ag Confirmation Hep B Core IgM Ab Hepatitis C Ab (EIA) Hep C Ab Signal/Cutoff HIV (1&2) Ag & Ab Conf Influenza Type A (PCR) Influenza Type B (PCR) RSV (RT-PCR) 07/19/22 07/19/22 07/19/22 08:56 Unknown Unknown WBC Hgb Hct Plt Count INR Sodium Potassium Chloride Carbon Dioxide BUN Creatinine Glucose Albumin Urine Protein 4+ H Urine Blood 1+ H Urine WBC (Auto) 5-10 H Urine RBC (Auto) 5-10 H Granular Casts 1-5 H U Random Total Protein Protein/Creatinin Ratio TERESITA Screen Anti-Proteinase 3 Anti-Myeloperoxidase ANCA Double Strand DNA Ab Glomerular Base Memb Ab Complement C3 Pending Complement C4 Pending Tot Complement (CH50) Pending SARS-CoV-2 (PCR) NEGATIVE Hepatitis A IgM Ab Hep Bs Antigen Hep Bs Ag Confirmation Hep B Core IgM Ab Hepatitis C Ab (EIA) Hep C Ab Signal/Cutoff HIV (1&2) Ag & Ab Conf Influenza Type A (PCR) Influenza Type B (PCR) RSV (RT-PCR) 07/20/22 07/20/22 05:50 05:50 WBC 10.90 H Hgb 11.4 L Hct 33.0 L Plt Count 316 INR Sodium 134 L Potassium 5.5 H Chloride 105 Carbon Dioxide 22 BUN 107 H Creatinine 10.35 H* D Glucose 146 H Albumin Urine Protein Urine Blood Urine WBC (Auto) Urine RBC (Auto) Granular Casts U Random Total Protein Protein/Creatinin Ratio TERESITA Screen Anti-Proteinase 3 Anti-Myeloperoxidase ANCA Double Strand DNA Ab Glomerular Base Memb Ab Complement C3 Complement C4 Tot Complement (CH50) SARS-CoV-2 (PCR) Hepatitis A IgM Ab Hep Bs Antigen Hep Bs Ag Confirmation Hep B Core IgM Ab Hepatitis C Ab (EIA) Hep C Ab Signal/Cutoff HIV (1&2) Ag & Ab Conf Influenza Type A (PCR) Influenza Type B (PCR) RSV (RT-PCR) Diagnostic Findings 07/19/22 Renal US: Right kidney: 11.4 No hydronephrosis. Normal corticomedullary differentiation and cortical thickness. Left kidney: 11.8 No hydronephrosis. Normal corticomedullary differentiation and cortical thickness. Bladder: Decompressed urinary bladder with Moy catheter. PG Care Time/CCT Total # of Minutes Spent Total Time Spent with Patient: Total time spent is greater than 50% in coordination of care (as documented) at patient's floor/unit and/or counseling patient: Coding Level of Care Code 57859 SUB INP/OBS CARE 3/50MIN Diagnoses LI (acute kidney injury) N17.9
[2022-07-20] MEDS ORDERED: PATIROMER CALCIUM SORBITEX 8.4 GM PACK PO SCH (09:00)
[2022-07-20] MEDS ORDERED: FUROSEMIDE 40 MG/4 ML VIAL IV ONE (10:00)
--- NOTE | 2022-07-20 11:09 | Hospitalist Progress Note ---
Date of Service July 20, 2022 Assessment & Plan (1) LI (acute kidney injury): Plan: This is a 57-year-old female with history of fibromyalgia on sulfasalazine, GERD on omeprazole who presented to [facility] at the recommendation of her physician for rapidly-progressing non-oliguric LI of unknown etiology. Severe Non-oliguric LI acute and serious risk *initial URI sx on 07/11/22 (NEW MEDS: doxycycline, Phenergan, prednisone) was in ER on 07/14 released on diclofenac (pt did not take) pt states typically takes 2 advil a day for years to help arthralgias Cr at that time 0.082 return on 07/17 with Cr 7.64, now risen to 9 reportedly did have + home covid test has been negative here * admission ua shows active sediment and inflammatory markers elevated -- bicarbinate remain stable -- CT-A/P: "Mild nonspecific perinephric stranding." no obstructive issues seen, renal ultrasound shows no obstructive changes -- negative blood cultures to date -- Check BCX -- Check GN serologies: , hepatitis panel, HIV, C3/C4, ANCA+mpo+PR3 with reflex, TERESITA, dsDNA, anti-GBM sned out labs pending * Appreciate nephrology consultation for diagnostic expertise --> remains on methylprednisolone 1000 mg IV daily I personally spoke with Dr. Abraham to coordinate her care treating her hyperkalemia with oral [place] room air and intravenous furosemide with a repeat check of potassium this evening. Hyperkalemia poses a serious risk the patient for arrhythmia she remains on cardiac monitoring. Personally spoke to [facility] transfer center, [place], and updated her regarding the patient's condition and likely need to do dialysis on Thursday pushing her transfer back to Thursday (2) Lower respiratory infection: Plan: Lower Respiratory Illness resolved not an issue during her hospital stay * Approx. 3 days of cough, sore throat, fatigue; +vomiting and diarrhea x 1 day, now resolved * Reportedly tested positive for COVID-19 at home --negative pcr on presentation -- CXR without acute processes -- Some bronchial wall thickening on CT-A/P (3) Fibromyalgia: Plan: Fibromyalgia chronic stable still with intermittent pain at times * Hold sulfasalazine, nortriptyline * Continue duloxetine (4) GERD (gastroesophageal reflux disease): Plan: GERD chronic stable * resume PPI Plan Code: Full Diet: Low sodium PPX: Heparin b.i.d. Admission and Anticipated Discharge Date Admission Date: July 17, 2022 Subjective Patient and I discussed the plan in detail about going to [place] for a renal biopsy but likely needing dialysis prior to going. I saw the patient in conjun ction with Dr. Abraham we discussed the likely need for a tunneled dialysis catheter and renal replacement therapy. Patient voiced no other complaints she says she is feeling a little bit puffy or swollen in her extremities she is not significantly dyspneic with exertion and and still able to walk around the room without much issue Physical Exam Physical Exam: The patient appeared stable Vital signs as documented. Lungs are clear to auscultation and appear unlabored Cardiac exam, Rhythm is regular.. No murmurs, rubs or gallops. Abdominal exam reveals normal bowel sounds, soft non tender, no masses Extremities are with trace edema Psychologically is tearful and anxious Results & Data Results & Data ([facility]) Vital Signs (Past 12 Hours) Vital Signs Temp Pulse Resp BP BP Pulse Ox O2 Del Method 07/20/22 10:57 98.8 F 66 18 131/76 98 Room Air 07/20/22 07:37 98.2 F 72 18 131/82 96 Room Air Laboratory Results Reviewed chemistry showing escalation of potassium to 5.5 and creatinine at 10.35 PG Care Time/CCT Total # of Minutes Spent Total Time Spent with Patient: Total time spent is greater than 50% in coordination of care (as documented) at patient's floor/unit and/or counseling patient: Coding Level of Care Code 55988 SUB INP/OBS CARE 3/50MIN Diagnoses LI (acute kidney injury) N17.9 Lower respiratory infection J22 Fibromyalgia M79.7 GERD (gastroesophageal reflux disease) K21.9
[2022-07-20] MEDS: methylPREDNISolone 1,000 MG in DEXTROSE 5% 250 ML IV SCH (13:47)
[2022-07-20] MEDS: LORazepam 0.5 MG TAB PO PRN (19:54)
[2022-07-20] MEDS: SIMETHICONE 80 MG CHEW PO PRN (19:54)
[2022-07-20 20:49] LABS: BUN Creatinine Ratio 10.4 (10-20); Calcium 7.9 mg/dl (8.5-10.1); Creatinine Clr Calc Pharmacy 6.6 ml/min; Est GFR (African American) 4.4 ml/min; Est GFR (Non-African American) 3.8 ml/min; Potassium 4.5 mmol/L (3.5-5.1)
[2022-07-21 06:25] LABS: Hemoglobin 11.7 g/dl (12.0-16.0); Mean Corpuscular Hgb Conc 35.5 g/dL (32.0-36.0); Mean Corpuscular Volume 90.2 fL (80.0-100.0); Mean Platelet Volume 8.9 fL (9.4-12.4); Platelet Count 322 K/uL (130-400); RDW Coefficient of Variation 12.8 % (11.5-14.5); RDW Standard Deviation 42.9 fL (36.4-46.3); Red Blood Count 3.66 M/uL (4.20-5.40)
[2022-07-21] MEDS ORDERED: SODIUM CHLORIDE 0.9% 1000ML 1,000 ML IV PRN (07:00)
[2022-07-21 07:04] LABS: BUN Creatinine Ratio 10.8 (10-20); Calcium 8.2 mg/dl (8.5-10.1); Creatinine Clr Calc Pharmacy 6.4 ml/min; Est GFR (African American) 4.3 ml/min; Est GFR (Non-African American) 3.7 ml/min; Potassium 5.2 mmol/L (3.5-5.1)
--- NOTE | 2022-07-21 07:09 | Consultation ---
Date of Consultation July 21, 2022 Assessment & Plan (1) LI (acute kidney injury): Permcath for dialysis was recommended. I have discussed the risks options and benefits of the procedure with the patient. The patient understands the risks options and benefits and agrees to the procedure. History of Present Illness Reason for Consultation: Acute kidney injury Attending Physician: Wilmer Merlos MD History of Present Illness Patient is 57yo female who developed fatigue, sore throat and cough 3 days prior to admission. When admitted she had acute kidney injury now requiring dialysis. Permcath was recommended. Allergies Allergy/AdvReac Type Severity Reaction Status Date / Time codeine AdvReac Severe severe Verified 07/17/22 19:41 vomiting Home Medications Medication Instructions Recorded Confirmed Type cholecalciferol (vitamin D3) 25 50 mcg PO QAM 01/04/20 07/17/22 History mcg (1,000 unit) tablet (Vitamin D3) duloxetine 20 mg capsule,delayed 40 mg PO QAM 01/04/20 07/17/22 History release (Cymbalta) gabapentin 600 mg tablet 600 mg PO BID 01/04/20 07/17/22 History sulfasalazine 500 mg tablet 1,000 mg PO BID 01/04/20 07/17/22 History aspirin 81 mg tablet,delayed 81 mg PO BID #60 tabs 11/13/21 07/17/22 Rx release ondansetron 4 mg disintegrating 4 mg PO Q6H PRN nausea and 11/13/21 07/17/22 Rx tablet vomiting #15 tabs diclofenac sodium 75 mg 75 mg PO BID PRN pain #60 tabs 05/23/22 07/17/22 Rx tablet,delayed release doxycycline hyclate 100 mg capsule 100 mg PO BID 07/17/22 07/17/22 History nortriptyline 10 mg capsule 10 mg PO DAILY 07/17/22 07/17/22 History omeprazole 40 mg capsule,delayed 40 mg PO QAM 07/17/22 07/17/22 History release prednisone 20 mg tablet 20 mg PO DAILY 07/17/22 07/17/22 History trazodone 50 mg tablet 50 mg PO HS 07/17/22 07/17/22 History Patient History Medical History Fibromyalgia GERD (gastroesophageal reflux disease) History of anesthesia reaction very slow to wake up per patient Obesity (BMI 30.0-34.9) Osteoarthritis Right knee DJD Surgical History H/O wisdom tooth extraction History of carpal tunnel release bilateral History of cholecystectomy History of colonoscopy History of esophagogastroduodenoscopy (EGD) S/P arthroscopy of right knee Status post de Quervain's release surgery Family History Father Family history of diabetes mellitus Mother Family history of diabetes mellitus Other No family history of adverse response to anesthesia Social History Smoking Status: Never smoker Second Hand Exposure: No; Hx Alcohol Use: No Hx Substance Use: No Preferred Language: Luxembourger Communication Ability: Effective Magnetic Resonance Imaging Director Required: No Beliefs That Will Affect Care: None Current Living Situation: Significant Other Other Information That Helps Us Care for You: No Feels Safe at Home: Yes Safety Concerns: Feels Safe At This Time Assistive Devices: Glasses Review of Systems Review of Systems: All systems reviewed & are unremarkable except as noted in HPI & below Physical Exam Constitutional: WD/WN, vitals as above Respiratory: normal respiratory effort, lungs clear to auscultation Cardiovascular: RRR, no murmur, no edema Vessels: normal peripheral pulses Extremities: normal capillary refill Gastrointestinal (Abdomen): normal bowel sounds, soft, nontender, no hepatosplenomegaly Musculoskeletal: no cyanosis or clubbing, extremities motor strength 5/5 Neurologic: CN's II-XI intact bilaterally and moves all extremities Psychiatric: Orientation: alert and oriented x 3 Results & Data ([facility]) Vital Signs (Past 12 Hours) Vital Signs Temp Pulse Pulse Resp BP Pulse Ox O2 Del Method 07/21/22 06:57 36.9 C 68 20 151/86 H 96 Room Air 07/21/22 06:28 37.1 C 77 18 127/67 94 Room Air 07/20/22 22:55 36.9 C 66 16 127/73 91 Room Air 07/20/22 19:26 37.0 C 70 18 148/86 H 92 Room Air
[2022-07-21 07:33] LABS: Estimated Average Glucose 128 mg/dl; Hemoglobin A1C 6.1 % (4.5-5.6)
[2022-07-21] MEDS ORDERED: ceFAZolin 2,000 MG/15 ML IV PUSH IV ONE (07:53)
[2022-07-21] MEDS ORDERED: MIDAZOLAM HCL 1 MG/ML 2ML VIAL ONE (08:00)
[2022-07-21] MEDS ORDERED: fentaNYL citrate 100 MCG/2 ML VIAL ONE (08:00)
[2022-07-21] MEDS ORDERED: HEPARIN SOD (PORCINE) 5,000 UNITS/ML VIAL ONE (08:00)
[2022-07-21] MEDS ORDERED: LIDOCAINE 1% LOCAL 20 ML VIAL ONE (08:00)
--- NOTE | 2022-07-21 08:40 | Pre Anesthesia Assessment ---
Date of Service July 21, 2022 Pre Sedation Assessment Vital Signs Temp Pulse Pulse Pulse Resp BP BP 07/21/22 08:37 56 L 16 147/93 H 07/21/22 08:32 65 16 163/81 H 07/21/22 08:27 60 16 158/86 H 07/21/22 08:22 56 L 16 163/90 H 07/21/22 08:20 58 L 16 167/89 H 07/21/22 06:57 36.9 C 68 20 151/86 H 07/21/22 06:28 37.1 C 77 18 127/67 07/20/22 22:55 36.9 C 66 16 127/73 07/20/22 19:26 37.0 C 70 18 148/86 H 07/20/22 14:57 37.0 C 69 20 166/79 H 07/20/22 10:57 37.1 C 66 18 131/76 Pulse Ox O2 Del Method O2 Flow Rate 07/21/22 08:37 97 Oxymask 4 07/21/22 08:32 97 Oxymask 4 07/21/22 08:27 97 Oxymask 4 07/21/22 08:22 100 Oxymask 4 07/21/22 08:20 100 Oxymask 4 07/21/22 06:57 96 Room Air 07/21/22 06:28 94 Room Air 07/20/22 22:55 91 Room Air 07/20/22 19:26 92 Room Air 07/20/22 14:57 94 Room Air 07/20/22 10:57 98 Room Air Cardiovascular RRR, no murmur, no edema Respiratory normal respiratory effort, lungs clear to auscultation Pre-Sedation Airway Assessment Smoking Status: Never smoker Hx Sleep Apnea: No Short, Thick Neck: Yes Thyromental Distance: > or= 3.5 Finger Breadths Oral Cavity: + WNL Mallampati Class: III ASA: ASA4 NPO Status Date of Last Intake of Fluids: 07/20/22 Time of Last Intake of Fluids: 17:00 Date of Last Intake of Solid Food: 07/20/22 Time of Last Intake of Solid Foods: 17:00 Procedure Planning Contraindications for Sedation: none Current Medications Reviewed: Yes Notes The planned sedation has been discussed with the patient. Informed Consent was obtained. I have identified the patient, determined the appropriateness of sedation and have assessed the patient immediately prior to the procedure. All medicine(s) and interventions are by my order.
--- NOTE | 2022-07-21 08:43 | Operative Report ---
Post Operative Report Pre & Post Diagnosis Operation Date: 07/21/22 11:40 Pre-Op Diagnosis: Acute Kidney Injury Post-Op Diagnosis: Acute Kidney Injury I identified the patient and participated in the time-out.: Yes Procedure Operation Date: 07/21/22 11:40 Actual Procedures p Perm Catheter Insertion Right Jugular Approach, Ultrasound Localization to Right Jugular Vein, Fluoroscopy for Positioning, Moderate Sedation 0822- 0843(Right) - Ortega Dsouza MD Surgeon Ortega Dsouza MD Estimator Project Manager none Estimated Blood Loss 5 Findings Consistent with Post-Op Diagnosis Specimens none Anesthesia Type RN Sedation Complications none Disposition Accompanied Patient To Recovery: No Disposition: Recovery Room Indications This is a 57-year-old female with acute kidney injury needing dialysis. A PermCath was recommended. I have discussed the risks options and benefits of the procedure with the patient. The patient understands the risks options and benefits and agrees to the procedure. Description of Procedure Patient was taken to the angio suite and placed in the supine position. The right side of the neck and chest wall were prepped and draped in a sterile manner. The patient was identified and a timeout performed. Local anesthesia was then administered to the appropriate areas of the neck and chest wall. Ultrasound was then used to locate the right internal jugular vein. The vein compressed easily, had no filing defects, and was patent. The vein was then punctured under direct ultrasound imaging. A guidewire was then passed centrally under fluoroscopic imaging. A stab wound was then made in the anterior chest wall and a 19 cm permcath was passed from the stab wound on the chest wall to the puncture site on the neck. The puncture site was then dilated till the 14Fr peel away sheath was inserted. The permcath was then inserted through the sheath to a central position in the distal superior vena cava. The peel away sheath was then removed. The catheter was then sutured in place using nylon sutures. The puncture was then closed using a 4-0 Vicryl subcuticular suture. Dermabond was used for a dressing on the puncture site. Both ports aspirated and flushed easily and were then packed with heparin. A sterile dressing was applied to the catheter. The patient left the operation room in satisfactory condition and tolerated the procedure well. All needle and sponge counts were correct at the end of the procedure. I attest to the content of the Intraoperative Record and any orders documented therein. Any exceptions are noted below.
--- NOTE | 2022-07-21 08:45 | Post Anesthesia Assessment ---
Date of Service July 21, 2022 Post Sedation Assessment Vital Signs Temp Pulse Pulse Pulse Resp BP BP 07/21/22 08:38 61 16 156/90 H 07/21/22 08:37 56 L 16 147/93 H 07/21/22 08:32 65 16 163/81 H 07/21/22 08:27 60 16 158/86 H 07/21/22 08:22 56 L 16 163/90 H 07/21/22 08:20 58 L 16 167/89 H 07/21/22 06:57 36.9 C 68 20 151/86 H 07/21/22 06:28 37.1 C 77 18 127/67 07/20/22 22:55 36.9 C 66 16 127/73 07/20/22 19:26 37.0 C 70 18 148/86 H 07/20/22 14:57 37.0 C 69 20 166/79 H 07/20/22 10:57 37.1 C 66 18 131/76 Pulse Ox O2 Del Method O2 Flow Rate 07/21/22 08:38 97 Oxymask 4 07/21/22 08:37 97 Oxymask 4 07/21/22 08:32 97 Oxymask 4 07/21/22 08:27 97 Oxymask 4 07/21/22 08:22 100 Oxymask 4 07/21/22 08:20 100 Oxymask 4 07/21/22 06:57 96 Room Air 07/21/22 06:28 94 Room Air 07/20/22 22:55 91 Room Air 07/20/22 19:26 92 Room Air 07/20/22 14:57 94 Room Air 07/20/22 10:57 98 Room Air Recovery Score Activity: Moves 4 extremities Respiration: Deep Breath/Cough Circulation: +/-20% PreAnes Value Consciousness: Fully Awake Oxygen Saturation: > 92% On Room Air Post Anesthesia Score: 10 Discharge Sedation Level of Care: Fast Track Phase II Post Sedation Plan On clinical assessment, the patient appears to have tolerated the sedation without complications. Patient is recovering as anticipated. Patient will continue to be monitored by nursing and may be discharged when sedation discharge criteria are met per below protocol. Upon Completions of procedure up to 15 minutes continue every 5 minute vital signs and the P.A.R. score; then discharge to a Phase I or Fast Track to Phase II per the following guidelines: * Discharge Patient to appropriate Phase II area if PAR is 8 or greater or return to pre- procedure baseline. The post - procedure orders will be as directed. * If PAR score is less than 8 or not return to pre-procedure baseline then patient will follow Phase I monitoring till PAR is reached for Phase II. The Phase I may be done in procedure room or may call to secure a Phase I area. * If naloxone or flumazenil are used for reversal, hold in Phase I for continued monitoring from when last reversal dose was given for a minimum of 60 minutes or longer pending the nurse and/or physician discretion of patient condition before discharge to Phase II. Please call the Sedation Physician to re-evaluate and complete post-note for discharge to Phase II area. Do NOT discharge from procedure sedation or Phase 1 until post- sedation evaluation note is complete by procedure /sedation MD Sedation Discharge Instructions to be given to the patient at discharge to home.
--- NOTE | 2022-07-21 08:46 | Nephrology Progress Note ---
Date of Service July 21, 2022 Assessment & Plan (1) LI (acute kidney injury): Plan: * RPGN. Nephrotic range proteinuria. Urine sediment is difficult to assess due to indwelling Moy catheter. Urinalysis 07/19/22 dose show granular casts. Ddx remains broad. Recent + home test for COVID raises concern for COVAN * RIJ THC placed 07/21/[address] Dsouza * Will plan 1st run HD this morning * Once stable on HD, recommend transfer to tertiary care center for [place] kidney biopsy to assist w/ diagnosis and prognosis * Baseline Cr 0.9 07/04/22 * Await results of serologic/immunologic testing, SPEP/UPEP * 07/17/22 urine and blood cultures are negative * Abdominal CT was negative for hydronephrosis * 07/19/22 renal US: R 11.4, L 11.8. No hydronephrosis. Normal corticomedullary differentiation and cortical thickness. Bladder decompressed with Moy catheter. * Change steroid therapy to Prednisone 60 mg po daily starting tomorrow * Will add Bactrim SS po 3x/week for PJP prophylaxis * Monitor PRP, UO * Discussed need for renal biopsy and potential need for HD w/ Ms. Torres. She is agreeable to the above outlined plan of care Admission and Anticipated Discharge Date Admission Date: July 17, 2022 Subjective Ms. Torres was evaluated in her hospital room this morning. She had just undergone R IJ THC insertion. She denied angina or dyspnea Review of Systems Constitutional: no fever Eyes: no problem reported Ear, Nose, Mouth, Throat: no problem reported Respiratory: no dyspnea Cardiovascular: no chest pain Gastrointestinal: no abdominal pain, no vomiting and no diarrhea/loose stools Genitourinary: no dysuria Integumentary: no rash Neurologic: no localized weakness, no seizure-like activity and no syncope Physical Exam Constitutional: not in distress Eyes: PERRL, conjunctivae normal, anicteric sclerae ENMT: external ear and nose normal, oropharynx normal Neck: trachea midline, no thyromegaly R IJ THC site w/ clean, dry dressing in place Respiratory: normal respiratory effort, lungs clear to auscultation Cardiovascular: RRR, no murmur, no edema Gastrointestinal (Abdomen): normal bowel sounds, soft, nontender, no hepatosplenomegaly Skin: no rashes, warm and dry Neurologic: Speech / Cognition: normal speech and normal cognition Psychiatric: A+Ox3, euthymic affect Results & Data ([facility]) Vital Signs (Past 12 Hours) Vital Signs Temp Pulse Pulse Pulse Resp BP BP 07/21/22 08:38 61 16 156/90 H 07/21/22 08:37 56 L 16 147/93 H 07/21/22 08:32 65 16 163/81 H 07/21/22 08:27 60 16 158/86 H 07/21/22 08:22 56 L 16 163/90 H 07/21/22 08:20 58 L 16 167/89 H 07/21/22 06:57 36.9 C 68 20 151/86 H 07/21/22 06:28 37.1 C 77 18 127/67 07/20/22 22:55 36.9 C 66 16 127/73 Pulse Ox O2 Del Method O2 Flow Rate 07/21/22 08:38 97 Oxymask 4 07/21/22 08:37 97 Oxymask 4 07/21/22 08:32 97 Oxymask 4 07/21/22 08:27 97 Oxymask 4 07/21/22 08:22 100 Oxymask 4 07/21/22 08:20 100 Oxymask 4 07/21/22 06:57 96 Room Air 07/21/22 06:28 94 Room Air 07/20/22 22:55 91 Room Air Laboratory Results Laboratory Tests 07/17/22 07/17/22 07/17/22 19:51 23:24 23:24 WBC Hgb Hct Plt Count Sodium Potassium Chloride Carbon Dioxide BUN Creatinine Glucose Calcium Serum Immunofixation TERESITA Screen Pending Anti-Proteinase 3 Pending Anti-Myeloperoxidase Pending ANCA Pending Double Strand DNA Ab Pending Glomerular Base Memb Ab Pending Complement C3 Complement C4 Tot Complement (CH50) Tot Rhome/Lambda Ratio Rhome Light Chain Anal Lambda Light Chain Anal SARS-CoV-2 (PCR) Hepatitis A IgM Ab Pending Hep Bs Antigen Pending Hep Bs Ag Confirmation Pending Hep B Core IgM Ab Pending Hepatitis C Ab (EIA) Pending Hep C Ab Signal/Cutoff Pending HIV (1&2) Ag & Ab Conf NON-REACTIVE Influenza Type A (PCR) Negative Influenza Type B (PCR) Negative RSV (RT-PCR) Negative 07/19/22 07/19/22 07/20/22 08:56 Unknown 08:30 WBC Hgb Hct Plt Count Sodium Potassium Chloride Carbon Dioxide BUN Creatinine Glucose Calcium Serum Immunofixation TERESITA Screen Anti-Proteinase 3 Anti-Myeloperoxidase ANCA Double Strand DNA Ab Glomerular Base Memb Ab Complement C3 Pending Complement C4 Pending Tot Complement (CH50) Pending Tot Rhome/Lambda Ratio Rhome Light Chain Anal Lambda Light Chain Anal SARS-CoV-2 (PCR) NEGATIVE NEGATIVE Hepatitis A IgM Ab Hep Bs Antigen Hep Bs Ag Confirmation Hep B Core IgM Ab Hepatitis C Ab (EIA) Hep C Ab Signal/Cutoff HIV (1&2) Ag & Ab Conf Influenza Type A (PCR) Influenza Type B (PCR) RSV (RT-PCR) 07/20/22 07/21/22 07/21/22 08:40 05:28 05:28 WBC 9.30 Hgb 11.7 L Hct 33.0 L Plt Count 322 Sodium 136 Potassium 5.2 H Chloride 104 Carbon Dioxide 22 BUN 112 H Creatinine 10.37 H* D Glucose 145 H Calcium 8.2 L Serum Immunofixation Pending TERESITA Screen Anti-Proteinase 3 Anti-Myeloperoxidase ANCA Double Strand DNA Ab Glomerular Base Memb Ab Complement C3 Complement C4 Tot Complement (CH50) Tot Rhome/Lambda Ratio Pending Rhome Light Chain Anal Pending Lambda Light Chain Anal Pending SARS-CoV-2 (PCR) Hepatitis A IgM Ab Hep Bs Antigen Hep Bs Ag Confirmation Hep B Core IgM Ab Hepatitis C Ab (EIA) Hep C Ab Signal/Cutoff HIV (1&2) Ag & Ab Conf Influenza Type A (PCR) Influenza Type B (PCR) RSV (RT-PCR) PG Care Time/CCT Total # of Minutes Spent Total Time Spent with Patient: Total time spent is greater than 50% in coordination of care (as documented) at patient's floor/unit and/or counseling patient: Coding Level of Care Code 11653 SUB INP/OBS CARE 3/50MIN Diagnoses LI (acute kidney injury) N17.9
[2022-07-21] MEDS ORDERED: SULFA/TRIMETH 400/80MG TAB PO SCH (11:45)
[2022-07-21] MEDS: SIMETHICONE 80 MG CHEW PO PRN (12:57)
[2022-07-21] MEDS: HEPARIN SOD 5,000 UNIT/0.5 ML VIAL SQ SCH ×2 (13:05→21:06)
[2022-07-21] MEDS: PANTOprazole 40 MG TAB PO SCH (13:05)
[2022-07-21] MEDS: DULoxetine HCL 20 MG CAP PO SCH (13:05)
[2022-07-21] MEDS: PATIROMER CALCIUM SORBITEX 8.4 GM PACK PO SCH (13:06)
[2022-07-21] MEDS: methylPREDNISolone 1,000 MG in DEXTROSE 5% 250 ML IV SCH (13:07)
--- NOTE | 2022-07-21 13:23 | Hospitalist Progress Note ---
Date of Service July 21, 2022 Assessment & Plan (1) LI (acute kidney injury): Plan: This is a 57-year-old female with history of fibromyalgia on sulfasalazine, GERD on omeprazole who presented to [facility] at the recommendation of her physician for rapidly-progressing non-oliguric LI of unknown etiology. Severe Non-oliguric LI acute and serious risk *initial URI sx on 07/11/22 (NEW MEDS: doxycycline, Phenergan, prednisone) was in ER on 07/14 released on diclofenac (pt did not take) pt states typically takes 2 advil a day for years to help arthralgias Cr at that time 0.082 return on 07/17 with Cr 7.64 peaked above 10 prior to dialysis reportedly did have + home covid test has been negative here * admission ua shows active sediment and inflammatory markers elevated -- bicarbinate remain stable -- CT-A/P: "Mild nonspecific perinephric stranding." no obstructive issues seen, renal ultrasound shows no obstructive changes -- negative blood cultures to date -- Check BCX -- Check GN serologies: , hepatitis panel, HIV, C3/C4, ANCA+mpo+PR3 with reflex, TERESTIA, dsDNA, anti-GBM sned out labs pending * Appreciate nephrology consultation for diagnostic expertise -->transition to po prednisone from methylprednisolone starting 07/22/22 Also recommended adding Bactrim ss three times a week for PJP prophylaxis I personally spoke with Dr. Abraham to coordinate her care Personally spoke to [facility] transfer center,07/21/22, updated her regarding the patient's condition and likely transfer on Thursday07/22/22 (2) Lower respiratory infection: Plan: Lower Respiratory Illness resolved not an issue during her hospital stay * Approx. 3 days of cough, sore throat, fatigue; +vomiting and diarrhea x 1 day, now resolved * Reportedly tested positive for COVID-19 at home --negative pcr on presentation -- CXR without acute processes -- Some bronchial wall thickening on CT-A/P (3) Fibromyalgia: Plan: Fibromyalgia chronic stable still with intermittent pain at times * Hold sulfasalazine, nortriptyline * Continue duloxetine (4) GERD (gastroesophageal reflux disease): Plan: GERD chronic stable * resume PPI Plan Code: Full Diet: renal diet PPX: Heparin b.i.d. Admission and Anticipated Discharge Date Admission Date: July 17, 2022 Subjective pt was seen in dislysis unit, did have 2 hr run without fluid removal, tolerated treatment well no additional concerns Physical Exam Physical Exam: Pt is awake and alert, no complaints cardiac exam is regular, lungs clear right chest tunnel cath site used for HD 07/21/22 Results & Data Results & Data ([facility]) Vital Signs (Past 12 Hours) Vital Signs Temp Pulse Pulse Pulse Pulse Resp BP 07/21/22 11:09 99.0 F 60 07/21/22 11:00 60 156/78 H 07/21/22 10:30 54 L 165/88 H 07/21/22 10:00 56 L 156/94 H 07/21/22 09:30 51 L 143/74 H 07/21/22 09:01 56 L 163/92 H 07/21/22 08:55 97.7 F 59 L 07/21/22 08:43 64 16 07/21/22 08:38 61 16 07/21/22 08:37 56 L 16 07/21/22 08:32 65 16 07/21/22 08:27 60 16 07/21/22 08:22 56 L 16 07/21/22 08:20 58 L 16 07/21/22 06:57 98.4 F 68 20 07/21/22 06:28 98.8 F 77 18 BP BP Pulse Ox O2 Del Method O2 Flow Rate 07/21/22 11:09 165/96 H 07/21/22 11:00 07/21/22 10:30 07/21/22 10:00 07/21/22 09:30 07/21/22 09:01 07/21/22 08:55 07/21/22 08:43 147/96 H 96 Room Air 0 07/21/22 08:38 156/90 H 97 Room Air 0 07/21/22 08:37 147/93 H 97 Oxymask 4 07/21/22 08:32 163/81 H 97 Oxymask 4 07/21/22 08:27 158/86 H 97 Oxymask 4 07/21/22 08:22 163/90 H 100 Oxymask 4 07/21/22 08:20 167/89 H 100 Oxymask 4 07/21/22 06:57 151/86 H 96 Room Air 07/21/22 06:28 127/67 94 Room Air Laboratory Results reviewed chemistry reviewed CBC PG Care Time/CCT Total # of Minutes Spent Total Time Spent with Patient: Total time spent is greater than 50% in coordination of care (as documented) at patient's floor/unit and/or counseling patient: Coding Level of Care Code 47866 SUB INP/OBS CARE 2/35MIN Diagnoses LI (acute kidney injury) N17.9 Lower respiratory infection J22 Fibromyalgia M79.7 GERD (gastroesophageal reflux disease) K21.9
[2022-07-21] MEDS: ACETAMINOPHEN 500 MG TAB PO PRN (14:02)
[2022-07-21] MEDS: LORazepam 0.5 MG TAB PO PRN (21:06)
[2022-07-22 06:55] LABS: Hematocrit (blood only) 33.3 % (37.0-47.0); Hemoglobin 11.7 g/dl (12.0-16.0); Mean Corpuscular Hemoglobin 31.8 pg (25.0-34.0); Mean Corpuscular Hgb Conc 35.1 g/dL (32.0-36.0); Mean Corpuscular Volume 90.5 fL (80.0-100.0); Mean Platelet Volume 8.7 fL (9.4-12.4); Platelet Count 296 K/uL (130-400); RDW Coefficient of Variation 12.6 % (11.5-14.5); RDW Standard Deviation 41.6 fL (36.4-46.3); Red Blood Count 3.68 M/uL (4.20-5.40); White Blood Count 10.71 K/ul (4.8-10.8)
[2022-07-22 07:35] LABS: Creatinine Clr Calc Pharmacy 7.6 ml/min; Est GFR (African American) 5.2 ml/min; Est GFR (Non-African American) 4.5 ml/min
[2022-07-22 07:36] LABS: BUN Creatinine Ratio 10.7 (10-20); Calcium 8.5 mg/dl (8.5-10.1); Potassium 4.5 mmol/L (3.5-5.1)
[2022-07-22] MEDS: HEPARIN SOD 5,000 UNIT/0.5 ML VIAL SQ SCH (08:10)
[2022-07-22] MEDS: PANTOprazole 40 MG TAB PO SCH (08:11)
[2022-07-22] MEDS: DULoxetine HCL 20 MG CAP PO SCH (08:11)
[2022-07-22] MEDS: SIMETHICONE 80 MG CHEW PO PRN (08:11)
[2022-07-22] MEDS: PATIROMER CALCIUM SORBITEX 8.4 GM PACK PO SCH (08:11)
[2022-07-22] MEDS: ACETAMINOPHEN 500 MG TAB PO PRN (08:17)
--- NOTE | 2022-07-22 08:43 | Nephrology Progress Note ---
Date of Service July 22, 2022 Assessment & Plan (1) LI (acute kidney injury): Plan: * RPGN. Nephrotic range proteinuria. Urine sediment is difficult to assess due to indwelling Moy catheter. Urinalysis 07/19/22 dose show granular casts. Ddx remains broad. Recent + home test for COVID raises concern for COVAN * RIJ THC placed 07/21/[address] Dsouza * Will plan 2nd run HD this morning * Once stable on HD, recommend transfer to tertiary care center for [place] kidney biopsy to assist w/ diagnosis and prognosis * Baseline Cr 0.9 07/04/22 * Await results of serologic/immunologic testing, SPEP/UPEP * 07/17/22 urine and blood cultures are negative * Abdominal CT was negative for hydronephrosis * 07/19/22 renal US: R 11.4, L 11.8. No hydronephrosis. Normal corticomedullary differentiation and cortical thickness. Bladder decompressed with Moy catheter. * Start Prednisone 60 mg po daily today * Continue Bactrim SS po 3x/week for PJP prophylaxis * Monitor PRP, UO Admission and Anticipated Discharge Date Admission Date: July 17, 2022 Subjective Ms. Torres was evaluated in her hospital room this morning. She was dialyzed yesterday for 2 hours with no UF. This morning she reports brisk UO. She voices no new medical concerns Review of Systems Constitutional: no fever Eyes: no problem reported Ear, Nose, Mouth, Throat: no problem reported Respiratory: no dyspnea Cardiovascular: no chest pain Gastrointestinal: no abdominal pain, no vomiting and no diarrhea/loose stools Genitourinary: no dysuria Integumentary: no rash Neurologic: no localized weakness, no seizure-like activity and no syncope Physical Exam Constitutional: not in distress Eyes: PERRL, conjunctivae normal, anicteric sclerae ENMT: external ear and nose normal, oropharynx normal Neck: trachea midline, no thyromegaly Respiratory: normal respiratory effort, lungs clear to auscultation Cardiovascular: RRR, no murmur, no edema Gastrointestinal (Abdomen): normal bowel sounds, soft, nontender, no hepatosplenomegaly Skin: no rashes, warm and dry Neurologic: Speech / Cognition: normal speech and normal cognition Psychiatric: A+Ox3, euthymic affect Results & Data ([place]) Vital Signs (Past 12 Hours) Vital Signs Temp Pulse Pulse Resp BP BP Pulse Ox 07/22/22 07:48 36.9 C 83 18 131/74 96 07/22/22 02:40 36.8 C 64 16 160/93 H 96 O2 Del Method 07/22/22 07:48 Room Air 07/22/22 02:40 Room Air Laboratory Results Laboratory Tests 07/17/22 07/17/22 07/17/22 18:02 19:51 23:24 WBC Hgb Hct Plt Count Sodium Potassium Chloride Carbon Dioxide BUN Creatinine Glucose Calcium Serum Immunofixation Urine Immunofixation TERESITA Screen Pending Anti-Proteinase 3 Pending Anti-Myeloperoxidase Pending ANCA Pending Double Strand DNA Ab Pending Glomerular Base Memb Ab Pending Complement C3 Complement C4 Tot Complement (CH50) Tot [place]/Lambda Ratio [place] Light Chain Anal Lambda Light Chain Anal SARS-CoV-2 (PCR) Hepatitis A IgM Ab Pending Hep Bs Antigen Pending Hep Bs Ag Confirmation Pending Hep B Core IgM Ab Pending Hepatitis C Ab (EIA) Pending Hep C Ab Signal/Cutoff Pending HIV (1&2) Ag & Ab Conf Influenza Type A (PCR) Negative Influenza Type B (PCR) Negative RSV (RT-PCR) Negative SARS-CoV-2, RNA, NAAT NEGATIVE 07/17/22 07/19/22 07/19/22 23:24 08:56 Unknown WBC Hgb Hct Plt Count Sodium Potassium Chloride Carbon Dioxide BUN Creatinine Glucose Calcium Serum Immunofixation Urine Immunofixation TERESITA Screen Anti-Proteinase 3 Anti-Myeloperoxidase ANCA Double Strand DNA Ab Glomerular Base Memb Ab Complement C3 Pending Complement C4 Pending Tot Complement (CH50) Pending Tot [place]/Lambda Ratio [place] Light Chain Anal Lambda Light Chain Anal SARS-CoV-2 (PCR) NEGATIVE Hepatitis A IgM Ab Hep Bs Antigen Hep Bs Ag Confirmation Hep B Core IgM Ab Hepatitis C Ab (EIA) Hep C Ab Signal/Cutoff HIV (1&2) Ag & Ab Conf NON-REACTIVE Influenza Type A (PCR) Influenza Type B (PCR) RSV (RT-PCR) SARS-CoV-2, RNA, NAAT 07/20/22 07/20/22 07/21/22 08:30 08:40 Unknown WBC Hgb Hct Plt Count Sodium Potassium Chloride Carbon Dioxide BUN Creatinine Glucose Calcium Serum Immunofixation Pending Urine Immunofixation Pending TERESITA Screen Anti-Proteinase 3 Anti-Myeloperoxidase ANCA Double Strand DNA Ab Glomerular Base Memb Ab Complement C3 Complement C4 Tot Complement (CH50) Tot [place]/Lambda Ratio Pending [place] Light Chain Anal Pending Lambda Light Chain Anal Pending SARS-CoV-2 (PCR) NEGATIVE Hepatitis A IgM Ab Hep Bs Antigen Hep Bs Ag Confirmation Hep B Core IgM Ab Hepatitis C Ab (EIA) Hep C Ab Signal/Cutoff HIV (1&2) Ag & Ab Conf Influenza Type A (PCR) Influenza Type B (PCR) RSV (RT-PCR) SARS-CoV-2, RNA, NAAT 07/22/22 07/22/22 06:28 06:28 WBC 10.71 Hgb 11.7 L Hct 33.3 L Plt Count 296 Sodium 136 Potassium 4.5 Chloride 104 Carbon Dioxide 24 BUN 93 H Creatinine 8.73 H* D Glucose 144 H Calcium 8.5 Serum Immunofixation Urine Immunofixation TERESITA Screen Anti-Proteinase 3 Anti-Myeloperoxidase ANCA Double Strand DNA Ab Glomerular Base Memb Ab Complement C3 Complement C4 Tot Complement (CH50) Tot [place]/Lambda Ratio [place] Light Chain Anal Lambda Light Chain Anal SARS-CoV-2 (PCR) Hepatitis A IgM Ab Hep Bs Antigen Hep Bs Ag Confirmation Hep B Core IgM Ab Hepatitis C Ab (EIA) Hep C Ab Signal/Cutoff HIV (1&2) Ag & Ab Conf Influenza Type A (PCR) Influenza Type B (PCR) RSV (RT-PCR) SARS-CoV-2, RNA, NAAT PG Care Time/CCT Total # of Minutes Spent Total Time Spent with Patient: Total time spent is greater than 50% in coordination of care (as documented) at patient's floor/unit and/or counseling patient: Coding Level of Care Code 28128 SUB INP/OBS CARE 3/50MIN Diagnoses LI (acute kidney injury) N17.9
[2022-07-22] MEDS ORDERED: predniSONE 20 MG TAB PO SCH (09:00)
[2022-07-22] MEDS ORDERED: SODIUM CHLORIDE 0.9% 1000ML 1,000 ML IV PRN (09:33)
[2022-07-22] MEDS ORDERED: ONDANSETRON INJ 2 MG/ML 2 ML VIAL IV STA ×2 (10:59→16:13)
[2022-07-22] MEDS: methylPREDNISolone 1,000 MG in DEXTROSE 5% 250 ML IV SCH (14:21)
--- NOTE | 2022-07-22 14:47 | Hospitalist Progress Note ---
Date of Service July 22, 2022 Assessment & Plan (1) LI (acute kidney injury): Plan: This is a 57-year-old female withr rapidly-progressing non-oliguric LI of unknown etiology. Severe Non-oliguric LI acute and serious risk *initial URI sx on 07/11/22 (NEW MEDS: doxycycline, Phenergan, prednisone) was in ER on 07/14 released on diclofenac (pt did not take) pt states typically takes 2 advil a day for years to help arthralgias Cr at that time 0.082 return on 07/17 with Cr 7.64 peaked above 10 prior to dialysis, dialysis initiated on 07/21/2022 again treated on 07/22/2022 reportedly did have + home covid test has been negative here * admission ua shows active sediment and inflammatory markers elevated -- CT-A/P: "Mild nonspecific perinephric stranding." no obstructive issues seen, renal ultrasound shows no obstructive changes -- negative blood cultures to date -- Blood cultures negative to date -- Check GN serologies: , hepatitis panel, HIV, C3/C4, ANCA+mpo+PR3 with reflex, TERESITA, dsDNA, anti-GBM sned out labs pending * Appreciate nephrology consultation for diagnostic expertise -->transition to po prednisone from methylprednisolone starting 07/22/22 Also recommended adding Bactrim ss three times a week for PJP prophylaxis I personally spoke with Dr. Abraham to coordinate her care Personally spoke to [facility] transfer center,07/22/22, updated her regarding the patient's condition and likely transfer (2) Lower respiratory infection: Plan: Lower Respiratory Illness acute self-limited and resolved * Approx. 3 days of cough, sore throat, fatigue; +vomiting and diarrhea x 1 day, now resolved * Reportedly tested positive for COVID-19 at home --negative pcr on presentation -- CXR without acute processes -- Some bronchial wall thickening on CT-A/P (3) Fibromyalgia: Plan: Fibromyalgia chronic stable still with intermittent pain at times chronic and stable * Hold sulfasalazine, nortriptyline * Continue duloxetine (4) GERD (gastroesophageal reflux disease): Plan: GERD chronic stable * resume PPI Plan Code: Full Diet: renal diet PPX: Heparin b.i.d. Admission and Anticipated Discharge Date Admission Date: July 17, 2022 Subjective Patient was seen in dialysis center she has no complaints she is mildly nauseous this morning after taking her oral posterior-medial lower potassium this was discontinued. She understands resettle on a waiting pattern to get to [facility] for renal biopsy. She has been transitioned to oral steroids. Physical Exam Physical Exam: Awake alert appropriate. No shortness of breath. Cardiac exam is regular lungs are clear dialysis site through a tunneled catheter right upper chest is clean dry and intact Results & Data Results & Data ([facility]) Vital Signs (Past 12 Hours) Vital Signs Temp Pulse Pulse Pulse Resp BP BP 07/22/22 13:45 98.4 F 69 07/22/22 13:30 69 151/100 H 07/22/22 13:00 61 156/95 H 07/22/22 12:30 59 L 166/91 H 07/22/22 12:00 61 154/88 H 07/22/22 11:30 60 164/89 H 07/22/22 11:00 74 169/94 H 07/22/22 10:34 69 162/98 H 07/22/22 10:27 98.1 F 74 07/22/22 07:48 98.4 F 83 18 131/74 BP Pulse Ox O2 Del Method 07/22/22 13:45 165/92 H 07/22/22 13:30 07/22/22 13:00 07/22/22 12:30 07/22/22 12:00 07/22/22 11:30 07/22/22 11:00 07/22/22 10:34 07/22/22 10:27 07/22/22 07:48 96 Room Air Diagnostic Findings Reviewed chemistry Reviewed CBC PG Care Time/CCT Total # of Minutes Spent Total Time Spent with Patient: Total time spent is greater than 50% in coordination of care (as documented) at patient's floor/unit and/or counseling patient: Coding Level of Care Code 73491 SUB INP/OBS CARE 2/35MIN Diagnoses LI (acute kidney injury) N17.9 Lower respiratory infection J22 Fibromyalgia M79.7 GERD (gastroesophageal reflux disease) K21.9
--- NOTE | 2022-07-22 14:53 | Discharge Summary ---
Date of Service July 22, 2022 Principal Diagnosis Acute rapidly progressive renal failure requiring dialysis Discharge Exam The patient appeared stable Vital signs as documented. Lungs are clear to auscultation and appear unlabored Cardiac exam, Rhythm is regular.. No murmurs, rubs or gallops. Abdominal exam reveals normal bowel sounds, soft non tender, no masses Extremities are nonedematous and both pedal pulses are normal. Neurologic exam is alert and oriented, no focal loss of strength or sensation Discharge Data Allergies Allergy/AdvReac Type Severity Reaction Status Date / Time codeine AdvReac Severe severe Verified 07/17/22 19:41 vomiting Consultations 07/17/22 18:34 ED Decision to Admit Stat 07/17/22 19:05 Consult Nephrology Routine 07/20/22 10:37 Consult Vascular Surgery Routine Procedures Performed Operation Date: 07/21/22 11:40 Actual Procedures p Perm Catheter Insertion Right Jugular Approach, Ultrasound Localization to Right Jugular Vein, Fluoroscopy for Positioning, Moderate Sedation 0822- 0843(Right) - Ortega Dsouza MD Ordered Studies 07/17/22 18:24 CT abd pelvis wo con Stat 07/19/22 12:40 US renal/blad retro comp Routine 07/21/22 07:11 EV cvc insrt tunnel wo prt/universal grinder tool Routine US EV guide vascular access Routine Hospital Course (1) LI (acute kidney injury): This is a 57-year-old female withr rapidly-progressing non-oliguric LI of unknown etiology. Severe Non-oliguric LI acute and serious risk *initial URI sx on 07/11/22 (NEW MEDS: doxycycline, Phenergan, prednisone) was in ER on 07/14 released on diclofenac (pt did not take) pt states typically takes 2 advil a day for years to help arthralgias Cr at that time 0.082 return on 07/17 with Cr 7.64 peaked above 10 prior to dialysis, dialysis initiated on 07/21/2022 again treated on 07/22/2022 reportedly did have + home covid test has been negative here * admission ua shows active sediment and inflammatory markers elevated -- CT-A/P: "Mild nonspecific perinephric stranding." no obstructive issues seen, renal ultrasound shows no obstructive changes -- negative blood cultures to date -- Blood cultures negative to date -- Check GN serologies: , hepatitis panel, HIV, C3/C4, ANCA+mpo+PR3 with reflex, TERESITA, dsDNA, anti-GBM sned out labs pending * Appreciate nephrology consultation for diagnostic expertise -->transition to po prednisone from methylprednisolone starting 07/22/22 Also recommended adding Bactrim ss three times a week for PJP prophylaxis I personally spoke with Dr. Abraham to coordinate her care Personally spoke to [facility] transfer center,07/22/22, updated her regarding the patient's condition and likely transfer (2) Lower respiratory infection: Lower Respiratory Illness acute self-limited and resolved * Approx. 3 days of cough, sore throat, fatigue; +vomiting and diarrhea x 1 day, now resolved * Reportedly tested positive for COVID-19 at home --negative pcr on presentation -- CXR without acute processes -- Some bronchial wall thickening on CT-A/P (3) Fibromyalgia: Fibromyalgia chronic stable still with intermittent pain at times chronic and stable * Hold sulfasalazine, nortriptyline * Continue duloxetine (4) GERD (gastroesophageal reflux disease): GERD chronic stable * resume PPI Plan Code: Full Diet: renal diet PPX: Heparin b.i.d. Total Time Total Time Spent Total Time Spent (In Minutes): It required greater than 30 minutes to prepare this patient for discharge Discharge Plan Discharge Items Patient Disposition: Transfer Acute Care Hospital Reason For Visit: LI Discharge Diagnosis: Rapidly progressive renal failure Transfer expertise to perform renal biopsy Activity: Per Instructions section Non-emergency contact: Primary Care Provider and International Account Executive Follow-up/Referrals: Kerline Duque DO [Primary Care Provider] - Diet: Dialysis Renal Addtl Attending Provider Instructions: Expectations are transferred [facility] for renal biopsy and then return [facility] please follow directions and instructions from your care team at [facility] Pending Studies at Discharge: Yes (Send away test to evaluate cause of renal injury are currently pending ) Stand-Alone Forms: My [facility] Skilled Items Patient informed of condition?: Yes DNR: No Discharge Level of Care: Other Communicable Disease: No Discharge Prognosis: Improving Lines: Peripheral IV and Lewis Urinary Catheter: Yes Medications and DC Order Prescriptions: New sulfamethoxazole-trimethoprim [Bactrim] 400-80 mg Tablet 1 tab PO MoWeFr@1500 Qty: 12 0RF prednisone 20 mg Tablet 60 mg PO DAILY Qty: 90 0RF pantoprazole 40 mg Tablet,Delayed Release (Dr/Ec) 40 mg PO QAM Qty: 30 0RF Continued cholecalciferol (vitamin D3) [Vitamin D3] 25 mcg (1,000 unit) Tablet 50 mcg PO QAM Changed duloxetine [Cymbalta] 20 mg Capsule,Delayed Release(Dr/Ec) 20 mg PO QAM Qty: 30 0RF Discontinued diclofenac sodium 75 mg tablet,delayed release (DR/EC) 75 mg PO BID PRN (Reason: pain) Qty: 60 2RF Rx Instructions: Take with food gabapentin 600 mg Tablet 600 mg PO BID sulfasalazine 500 mg Tablet 1,000 mg PO BID aspirin 81 mg tablet,delayed release (DR/EC) 81 mg PO BID Qty: 60 0RF Rx Instructions: take with food ondansetron 4 mg tablet,disintegrating 4 mg PO Q6H PRN (Reason: nausea and vomiting) Qty: 15 0RF doxycycline hyclate 100 mg capsule 100 mg PO BID Rx Instructions: ordered 07/15/22 take for 10 days trazodone 50 mg tablet 50 mg PO HS prednisone 20 mg tablet 20 mg PO DAILY Rx Instructions: 07/15/22 take for 5 days omeprazole 40 mg capsule,delayed release(DR/EC) 40 mg PO QAM nortriptyline 10 mg capsule 10 mg PO DAILY Discharge Orders: Discharge Order (Routine); Ordered 07/22/22 Ordered By: Wilmer Merlos Admission Data Admit Date/Time: 07/17/22 18:58 Attending Provider: Wilmer Merlos Admit Provider: Jose Manuel Garcia Primary Care Provider: Kerline Duque Other Providers: Paulo Ocasio ; Adithya Hendrix ; Ortega Dsouza Coding Diagnoses LI (acute kidney injury) N17.9 Lower respiratory infection J22 Fibromyalgia M79.7 GERD (gastroesophageal reflux disease) K21.9
[2022-07-22] MEDS ORDERED: ONDANSETRON INJ 2 MG/ML 2 ML VIAL IV PRN (16:16)
[2022-07-22] MEDS: LORazepam 0.5 MG TAB PO PRN (19:38)
[2022-07-23 22:47] LABS: Complement C3 148 mg/dL (83-193); Complement Total(CH50) >60 U/mL (31-60)
--- NOTE | 2022-07-24 17:43 | Discharge Summary ---
Date of Service July 22, 2022 Principal Diagnosis acute kidney failure requiring dialysis Discharge Exam Pt was seen prior to transfer to [place] was nauseated has no respiratory distress, clear lungs Discharge Data Allergies Allergy/AdvReac Type Severity Reaction Status Date / Time codeine AdvReac Severe severe Verified 07/17/22 19:41 vomiting Consultations 07/17/22 18:34 ED Decision to Admit Stat 07/17/22 19:05 Consult Nephrology Routine 07/20/22 10:37 Consult Vascular Surgery Routine 07/22/22 16:40 Burn CD for patient Stat Procedures Performed Operation Date: 07/21/22 11:40 Actual Procedures p Perm Catheter Insertion Right Jugular Approach, Ultrasound Localization to Right Jugular Vein, Fluoroscopy for Positioning, Moderate Sedation 0822- 0843(Right) - Ortega Dsouza MD Ordered Studies 07/17/22 18:24 CT abd pelvis wo con Stat 07/19/22 12:40 US renal/blad retro comp Routine 07/21/22 07:11 EV cvc insrt tunnel wo prt/computer education teacher Routine US EV guide vascular access Routine Hospital Course (1) LI (acute kidney injury): [facility], [id number] Hospitalist Progress Note Wanda (1) LI (acute kidney injury): Plan: This is a 57-year-old female withr rapidly-progressing non-oliguric LI of unknown etiology. Severe Non-oliguric LI acute and serious risk *initial URI sx on 07/11/22 (NEW MEDS: doxycycline, Phenergan, prednisone) was in ER on 07/14 released on diclofenac (pt did not take) pt states typically takes 2 advil a day for years to help arthralgias Cr at that time 0.082 return on 07/17 with Cr 7.64 peaked above 10 prior to dialysis, dialysis initiated on 07/21/2022 again treated on 07/22/2022 reportedly did have + home covid test has been negative here * admission ua shows active sediment and inflammatory markers elevated -- CT-A/P: "Mild nonspecific perinephric stranding." no obstructive issues seen, renal ultrasound shows no obstructive changes -- negative blood cultures to date -- Blood cultures negative to date -- Check GN serologies: , hepatitis panel, HIV, C3/C4, ANCA+mpo+PR3 with reflex, TERESITA, dsDNA, anti-GBM sned out labs pending * Appreciate nephrology consultation for diagnostic expertise -->transition to po prednisone from methylprednisolone starting 07/22/22 Also recommended adding Bactrim ss three times a week for PJP prophylaxis I personally spoke with Dr. Abraham to coordinate her care Personally spoke to [facility] transfer center,07/22/22, updated her regarding the patient's condition and likely transfer (2) Lower respiratory infection: Lower Respiratory Illness acute self-limited and resolved * Approx. 3 days of cough, sore throat, fatigue; +vomiting and diarrhea x 1 day, now resolved * Reportedly tested positive for COVID-19 at home --negative pcr on presentation -- CXR without acute processes -- Some bronchial wall thickening on CT-A/P (3) Fibromyalgia: Fibromyalgia chronic stable still with intermittent pain at times chronic and stable * Hold sulfasalazine, nortriptyline * Continue duloxetine (4) GERD (gastroesophageal reflux disease): stable Total Time Total Time Spent Total Time Spent (In Minutes): discharge took greater than 30 minutes Discharge Plan Discharge Items Patient Disposition: Transfer Acute Care Hospital Reason For Visit: LI Discharge Diagnosis: Rapidly progressive renal failure Transfer expertise to perform renal biopsy Activity: Per Instructions section Non-emergency contact: Primary Care Provider and Transfer Agent Call non-emergency contact if: your symptoms worsen Follow-up/Referrals: Kerline Duque DO [Primary Care Provider] - Diet: Dialysis Renal Addtl Attending Provider Instructions: Expectations are transferred [facility] for renal biopsy and then return [facility] please follow directions and instructions from your care team at [facility] Pending Studies at Discharge: Yes (Send away test to evaluate cause of renal injury are currently pending ) Stand-Alone Forms: My [facility] Skilled Items Patient informed of condition?: Yes DNR: No Discharge Level of Care: Other Communicable Disease: No Discharge Prognosis: Improving Lines: Peripheral IV and Lewis Urinary Catheter: Yes Medications and DC Order Prescriptions: New sulfamethoxazole-trimethoprim [Bactrim] 400-80 mg Tablet 1 tab PO MoWeFr@1500 Qty: 12 0RF prednisone 20 mg Tablet 60 mg PO DAILY Qty: 90 0RF pantoprazole 40 mg Tablet,Delayed Release (Dr/Ec) 40 mg PO QAM Qty: 30 0RF Continued cholecalciferol (vitamin D3) [Vitamin D3] 25 mcg (1,000 unit) Tablet 50 mcg PO QAM Changed duloxetine [Cymbalta] 20 mg Capsule,Delayed Release(Dr/Ec) 20 mg PO QAM Qty: 30 0RF Discontinued diclofenac sodium 75 mg tablet,delayed release (DR/EC) 75 mg PO BID PRN (Reason: pain) Qty: 60 2RF Rx Instructions: Take with food gabapentin 600 mg Tablet 600 mg PO BID sulfasalazine 500 mg Tablet 1,000 mg PO BID aspirin 81 mg tablet,delayed release (DR/EC) 81 mg PO BID Qty: 60 0RF Rx Instructions: take with food ondansetron 4 mg tablet,disintegrating 4 mg PO Q6H PRN (Reason: nausea and vomiting) Qty: 15 0RF doxycycline hyclate 100 mg capsule 100 mg PO BID Rx Instructions: ordered 07/15/22 take for 10 days trazodone 50 mg tablet 50 mg PO HS prednisone 20 mg tablet 20 mg PO DAILY Rx Instructions: 07/15/22 take for 5 days omeprazole 40 mg capsule,delayed release(DR/EC) 40 mg PO QAM nortriptyline 10 mg capsule 10 mg PO DAILY Discharge Orders: Discharge Order (Routine); Ordered 07/22/22 Ordered By: Wilmer Merlos Admission Data Admit Date/Time: 07/17/22 18:58 Attending Provider: Wilmer Merlos Admit Provider: Jose Manuel Garcia Primary Care Provider: Kerline Duque Other Providers: Jose Manuel Garcia ; Adithya Hendrix ; Junaid Abraham ; Ortega Dsouza Other Interventions: Discharge Summary Assessment (RN) Last Done: 07/22/22 19:30 Coding Level of Care Code HOSP INP/OBS DISCH >30 MIN Diagnoses LI (acute kidney injury) N17.9 Lower respiratory infection J22 Fibromyalgia M79.7 GERD (gastroesophageal reflux disease) K21.9
[2022-07-25 00:52] LABS: ANCA Screen Negative (Negative); Anti Nuclear Antibody Screen NEGATIVE (NEGATIVE); Anti-Glom Basement Antibody <1.0 AI (<1.0); Anti-dsDNA Recombinant 1 IU/mL; HBSAG NON-REACTIVE (NON-REACTIVE); Hepatitis A Antibody IgM NON-REACTIVE (NON-REACTIVE); Hepatitis B Core Antibody IgM NON-REACTIVE (NON-REACTIVE); Myeloperoxidase Ab <1.0 AI (<1.0); Proteinase-3 AB <1.0 AI (<1.0)
[2022-07-25 15:32] LABS: Kappa 244 mg/dL (176-443); Kappa Lambda Ratio 2.14 (1.29-2.55); Lambda 114 mg/dL (91-240)
== END 2022-07-22 20:46 | disposition short-term general hospital (02) | DRG 698 ==
LOC: ED 15:12 → SUATTDRO 18:58 → EDINP 18:58 → 2N 22:48

== ENCOUNTER 2022-07-26 18:43 | Inpatient (IN) ==
--- NOTE | 2022-07-26 00:31 | Communication Note ---
Date of Service: July 25, 2022 Patient accepted for transfer back to [facility] per transfer agreement. Planned kidney biopsy today (Jul 25). Will be observed overnight at [place] and have planned dialysis tomorrow (Jul 26) with transfer back to [facility] following dialysis. Plan here mainly to set up outpatient dialysis (discussed with Dr Abraham).
--- NOTE | 2022-07-27 10:35 | History & Physical Report ---
Date of Service July 27, 2022 Assessment & Plan (1) Acute renal failure: Plan: Severe nonoliguric LI with nephrotic syndrome (greater than 10 g of proteinuria) Initial URI sx on 07/11/22 (NEW MEDS: doxycycline, Phenergan, prednisone) was in ER on 07/14 released on diclofenac (pt did not take) pt states typically takes 2 advil a day for years to help arthralgias Cr at that time 0.082 return on 07/17 with Cr 7.64 peaked above 10 prior to dialysis, dialysis ini tiated on 07/21/2022 again treated on 07/22/2022 reportedly did have + home covid test but has been negative here -- CT-A/P: "Mild nonspecific perinephric stranding." no obstructive issues seen, renal ultrasound shows no obstructive changes Blood cultures negative urine and serum immunofixation with no monoclonal antibodies Check GN serologies: hepatitis panel - negative, HIV - negative, C3/C4 - within normal limits although total complement > 60, ANCA +mpo+PR3 - negative, TERESITA - negative, dsDNA - negative, anti-GBM negative Transitioned to po prednisone from methylprednisolone starting 07/22/22 although she did not appear to be getting this at [place] Continue prednisone per nephrology recommendations Continue Bactrim for PJP prophylaxis s/p renal biopsy @ [facility] Jul 25 - await pathology from this S/p started on dialysis here and has continued with last dialysis on July 26 - once this is able to be set up patient can be discharged (2) Fibromyalgia: Plan: Continue duloxetine 40 mg p.o. daily and trazodone 50 mg p.o. at bedtime Continue nortriptyline and gabapentin as needed (3) GERD (gastroesophageal reflux disease): Plan: Continue pantoprazole 40 mg p.o. daily (4) Psoriatic arthritis: Plan: Continue sulfasalazine 1000 mg p.o. twice daily Plan VTE prophylaxis -heparin 5000 units SQ twice daily Diet -dialysis renal Disposition -admit to [facility] Admission and Anticipated Discharge Date Admission Date: July 27, 2022 History of Present Illness Chief Complaint: LI, bed hold from [place] following renal transplant Primary Care Provider: DO Patricia Wilcox is a 57-year-old female who presents as a direct admission back from [facility] after her renal biopsy. This was performed on July 25 - results currently pending. Plan to return to [facility] as dialysis not yet set up as an outpatient. I discussed this with Dr. Abraham on Thursday who discussed with chart the unit dialysis manager studio in [place] but unfortunately was unable to be set up in time to be directly discharged from [place]. The patient reports she has continued to produce urine. Appetite improved. No pain over renal biopsy sites on the left side. No shortness of breath, chest pain. She was hospitalized here from July 17 to 2022 due to acute renal failure following an upper respiratory illness 2 to 3 days prior. Random protein creatinine ratio was suggestive of more than 10 g protein in 24 hours. She was started on dialysis after permacath was inserted on July 21. Nephrology recommended renal biopsy and she was transferred to [facility] to facilitate this on July 22. Last dialysis session at [facility] that was July 26. Allergies Allergy/AdvReac Type Severity Reaction Status Date / Time codeine AdvReac Severe severe Verified 07/17/22 19:41 vomiting Home Medications Medication Instructions Recorded Confirmed Type cholecalciferol (vitamin D3) 25 50 mcg PO QAM 01/04/20 07/27/22 History mcg (1,000 unit) tablet (Vitamin D3) pantoprazole 40 mg tablet,delayed 40 mg PO QAM #30 tabs 07/22/22 07/27/22 Rx release prednisone 20 mg tablet 60 mg PO DAILY #90 tabs 07/22/22 07/27/22 Rx sulfamethoxazole 400 1 tab PO MoWeFr@1500 #12 tabs 07/22/22 07/27/22 Rx mg-trimethoprim 80 mg tablet (Bactrim) duloxetine 20 mg capsule,delayed 40 mg PO QAM 07/27/22 07/27/22 History release (Cymbalta) gabapentin 600 mg tablet 600 mg PO HS PRN Fibromyalgia 07/27/22 07/27/22 History nortriptyline 10 mg capsule 10 mg PO HS PRN Fibromyalgia 07/27/22 07/27/22 History sevelamer carbonate 800 mg tablet 800 mg PO TID 07/27/22 07/27/22 History sulfasalazine 500 mg tablet 1,000 mg PO BID 07/27/22 07/27/22 History trazodone 50 mg tablet 50 mg PO HS 07/27/22 07/27/22 History Past Med/Surg History Medical History (Updated 07/27/22 @ 12:41 by Fernando Schneider MD) Fibromyalgia GERD (gastroesophageal reflux disease) History of anesthesia reaction very slow to wake up per patient Obesity (BMI 30.0-34.9) Osteoarthritis Psoriatic arthritis Right knee DJD Surgical History H/O wisdom tooth extraction History of carpal tunnel release bilateral History of cholecystectomy History of colonoscopy History of esophagogastroduodenoscopy (EGD) S/P arthroscopy of right knee Status post de Quervain's release surgery Family History Father Family history of diabetes mellitus Mother Family history of diabetes mellitus Other No family history of adverse response to anesthesia Social History Smoking Status: Never smoker Second Hand Exposure: No; Do You Dip or Chew Tobacco: No; Hx Alcohol Use: No Hx Substance Use: No Preferred Language: Yakut Communication Ability: Effective Bag Machine Adjuster Required: No Beliefs That Will Affect Care: None Current Living Situation: Alone Feels Safe at Home: Yes Assistive Devices: Glasses Review of Systems Review of Systems: All systems reviewed & are unremarkable except as noted in HPI & below Physical Exam Constitutional: WD/WN, vitals as above Eyes: + anicteric sclerae; normal pupil size ENMT: external ear and nose normal, oropharynx normal Respiratory: normal respiratory effort, lungs clear to auscultation Cardiovascular: RRR, no murmur, no edema Gastrointestinal (Abdomen): normal bowel sounds, soft, nontender, no hepatosplenomegaly Musculoskeletal: no cyanosis or clubbing, extremities motor strength 5/5 Skin: no rashes, warm and dry Neurologic: moves all extremities and awake; not confused Psychiatric: A+Ox3, euthymic affect Genitourinary: no CVA tenderness Results & Data Results & Data ([facility]) Laboratory Results Abnormal lab results 07/27/22 07/27/22 Range/Units 10:42 10:42 WBC 12.95 H (4.8-10.8) K/ul RBC 3.47 L (4.20-5.40) M/uL Hgb 11.0 L (12.0-16.0) g/dl Hct 32.8 L (37.0-47.0) % MPV 8.9 L (9.4-12.4) fL Neut # (Auto) 9.28 H (1.40-6.50) K/uL [place] # (Auto) 0.89 H (0.11-0.59) K/uL Eos # (Auto) 0.54 H (0-0.50) K/uL Potassium 3.2 L (3.5-5.1) mmol/L BUN 24 H (6-23) mg/dl Creatinine 5.02 H* (0.6-1.2) mg/dl BUN/Creatinine Ratio 4.8 L (10-20) Glucose 100 H (70-99(Fasting)) mg/dl Calcium 7.7 L (8.5-10.1) mg/dl Total Protein 5.1 L (6.0-8.3) gm/dl Albumin 2.3 L (3.4-5.0) gm/dl Albumin/Globulin Ratio 0.8 L (0.9-2) Code Status & VTE Plan VTE Prophylaxis Plan VTE Prophylaxis will be ordered: Yes PG Care Time/CCT Total # of Minutes Spent Total Time Spent with Patient: Total time spent is greater than 50% in coordination of care (as documented) at patient's floor/unit and/or counseling patient: Coding Level of Care Code 68140 INT INP/OBS CARE 3/75MIN Diagnoses Acute renal failure N17.9 Fibromyalgia M79.7 GERD (gastroesophageal reflux disease) K21.9 Psoriatic arthritis L40.50
--- NOTE | 2022-07-27 11:19 | Nephrology Consultation ---
Date of Consultation July 27, 2022 Assessment & Plan (1) LI (acute kidney injury): (2) Proteinuria: (3) Microscopic hematuria: Plan Acute kidney injury with RPGN, so far workup has been unremarkable, pending kidney biopsy result, has been on dialysis. Last dialysis was on Thursday. BP, electrolytes, volume status acceptable. --will keep on TTS dialysis schedule for now --consult case management to set up outpatient dialysis for 10 for sinus kidney care at [facility]. -- dose medications for EGFR less than 10, left arm nephrology precaution -- continue on prednisone 60 mg /d, Bactrim for PCP prophylaxis, Protonix 40 mg/d, further management based on final biopsy findings. will follow Thank you for allowing me to participate in your patient's care. It was a pleasure to see Patricia History of Present Illness Reason for Consultation: LI, on HD, needs outpt HD set up. Attending Physician: Fernando Schneider MD History of Present Illness Patricia Torres is a 57 year-old female with Recent dialysis requiring acute kidney injury with no CKD, history of fibromyalgia and GERD, admitted to [facility] yesterday for out pt hH set up. EMR records were reviewed in detail during visit. abnormal laboratory studies with a serum creatinine of >7 mg/dL. Creatinine had been <1 mg/dL earlier in the week. Patricia initially presented to ER on 07/14/2022 with symptoms of nausea, vomiting, progressive fatigue, cough and sore throat. She had home OB test positive. However in year could be test was negative. Lab at the time showed creatinine 0.8, other electrolyte acceptable. She was treated with IV fluid, had a chest x-ray which was unremarkable and discharged from year with follow-up with her PCP. She was also prescribed prednisone, doxycycline but without much improvement. She came back to year on 07/17/2022 when lab showed AK with creatinine of 8.4. CT demonstrates the kidneys to be normal in size and without obstruction. Urine studies notable for +4 protein. Microscopy +WBCs and RBCs. Although she remained non oliguric, creatinine peaked to 10.5 within 3 days and she was started on hemodialysis via tunneled dialysis catheter on 07/21/2022. Last dialysis was on 07/26/2022. With concern for RPG and she was started on methylprednisone 5 and mg for 3 days and transition to oral prednisone. Serological workup and hepatitis and HIV where unremarkable including ANCA - negative, TERESITA - negative, dsDNA - negative, anti-GBM negative. Blood cultures negative, urine and serum immunofixation with no monoclonal antibodies CODIE 2R antibody was ordered on 07/27/22. She was transferred to [facility] and had [place] kidney biopsy on 07/25/2022, results currently pending. Overall she has been otherwise clinically stable, has been tolerating HD. Allergies Allergy/AdvReac Type Severity Reaction Status Date / Time codeine AdvReac Severe severe Verified 07/17/22 19:41 vomiting Home Medications Medication Instructions Recorded Confirmed Type cholecalciferol (vitamin D3) 25 50 mcg PO QAM 01/04/20 07/27/22 History mcg (1,000 unit) tablet (Vitamin D3) pantoprazole 40 mg tablet,delayed 40 mg PO QAM #30 tabs 07/22/22 07/27/22 Rx release prednisone 20 mg tablet 60 mg PO DAILY #90 tabs 07/22/22 07/27/22 Rx sulfamethoxazole 400 1 tab PO MoWeFr@1500 #12 tabs 07/22/22 07/27/22 Rx mg-trimethoprim 80 mg tablet (Bactrim) duloxetine 20 mg capsule,delayed 40 mg PO QAM 07/27/22 07/27/22 History release (Cymbalta) gabapentin 600 mg tablet 600 mg PO HS PRN Fibromyalgia 07/27/22 07/27/22 History nortriptyline 10 mg capsule 10 mg PO HS PRN Fibromyalgia 07/27/22 07/27/22 History sevelamer carbonate 800 mg tablet 800 mg PO TID 07/27/22 07/27/22 History sulfasalazine 500 mg tablet 1,000 mg PO BID 07/27/22 07/27/22 History trazodone 50 mg tablet 50 mg PO HS 07/27/22 07/27/22 History Patient History Medical History (Updated 07/27/22 @ 12:41 by Fernando Schneider MD) Fibromyalgia GERD (gastroesophageal reflux disease) History of anesthesia reaction very slow to wake up per patient Obesity (BMI 30.0-34.9) Osteoarthritis Psoriatic arthritis Right knee DJD Surgical History H/O wisdom tooth extraction History of carpal tunnel release bilateral History of cholecystectomy History of colonoscopy History of esophagogastroduodenoscopy (EGD) S/P arthroscopy of right knee Status post de Quervain's release surgery Family History Father Family history of diabetes mellitus Mother Family history of diabetes mellitus Other No family history of adverse response to anesthesia Social History Smoking Status: Never smoker Second Hand Exposure: No; Do You Dip or Chew Tobacco: No; Hx Alcohol Use: No Hx Substance Use: No Preferred Language: Dutch Communication Ability: Effective Monument Setter Required: No Beliefs That Will Affect Care: None Current Living Situation: Alone Feels Safe at Home: Yes Assistive Devices: None Review of Systems Review of Systems: Detail ROS was otherwise unremarkable. Physical Exam Constitutional: WD/WN, vitals as above no acute distress Respiratory: Auscultation: lungs clear to auscultation bilaterally Cardiovascular: RRR, no murmur, no edema Skin: no rashes Neurologic: no focal motor deficits Psychiatric: Orientation: alert and oriented x 3 PG Care Time/CCT Total # of Minutes Spent Total Time Spent with Patient: Total time spent is greater than 50% in coordination of care (as documented) at patient's floor/unit and/or counseling patient: Coding Level of Care Code INP/OBS CONSULT LVL 4, 60 MIN Diagnoses LI (acute kidney injury) N17.9 Proteinuria R80.9 Microscopic hematuria R31.29
[2022-07-27 11:27] LABS: Basophils # (auto) 0.01 K/uL (0-0.2); Basophils % (auto) 0.1 %; Eosinophils # (auto) 0.54 K/uL (0-0.50); Eosinophils % (auto) 4.2 %; Hematocrit (blood only) 32.8 % (37.0-47.0); Immature Granulocytes # (auto) 0.13 K/uL (0.01-0.20); Lymphocytes % (auto) 16.2 %; Mean Corpuscular Hemoglobin 31.7 pg (25.0-34.0); Mean Corpuscular Hgb Conc 33.5 g/dL (32.0-36.0); Mean Corpuscular Volume 94.5 fL (80.0-100.0); Mean Platelet Volume 8.9 fL (9.4-12.4); Monocytes # (auto) 0.89 K/uL (0.11-0.59); Monocytes % (auto) 6.9 %; Neutrophils # (auto) 9.28 K/uL (1.40-6.50); Neutrophils % (auto) 71.6 %; Platelet Count 211 K/uL (130-400); RDW Coefficient of Variation 12.7 % (11.5-14.5); RDW Standard Deviation 43.8 fL (36.4-46.3); Red Blood Count 3.47 M/uL (4.20-5.40); White Blood Count 12.95 K/ul (4.8-10.8)
[2022-07-27 11:41] LABS: Alanine Aminotransferase 14 U/L (7-52); Albumin Globulin Ratio 0.8 (0.9-2); Albumin Level 2.3 gm/dl (3.4-5.0); Alkaline Phosphatase 70 U/L (34-104); Anion Gap 4 (3-11); Aspartate Aminotransferase 18 U/L (13-39); BUN Creatinine Ratio 4.8 (10-20); Bilirubin,Total 0.4 mg/dl (0.2-1.0); Blood Urea Nitrogen 24 mg/dl (6-23); Calcium 7.7 mg/dl (8.5-10.1); Carbon Dioxide 29 mmol/L (21-32); Chloride 107 mmol/L (98-107); Est GFR (African American) 10.2 ml/min; Est GFR (Non-African American) 8.8 ml/min; Globulin 2.8 gm/dl (2.5-4.0); Glucose 100 mg/dl (70-99(Fasting)); Magnesium 1.7 mg/dl (1.7-2.4); Phosphorus 3.4 mg/dl (2.5-4.9); Potassium 3.2 mmol/L (3.5-5.1); Sodium 140 mmol/L (136-145); Total Protein 5.1 gm/dl (6.0-8.3)
[2022-07-27] MEDS ORDERED: NORTRIPTYLINE HCL 10 MG CAP PO PRN (12:26)
[2022-07-27] MEDS ORDERED: GABAPENTIN 300 MG CAP PO PRN (12:36)
[2022-07-27] MEDS: DULoxetine HCL 20 MG CAP PO SCH (14:21)
[2022-07-27] MEDS: PANTOprazole 40 MG TAB PO SCH (14:21)
[2022-07-27] MEDS: CHOLECALCIFEROL 1,000 UNITS 25 MCG TAB PO SCH (14:22)
[2022-07-27] MEDS: predniSONE 20 MG TAB PO SCH (14:22)
[2022-07-27] MEDS: SEVELAMER HCL 800 MG TABLET PO SCH (17:10)
[2022-07-27] MEDS: HEPARIN SOD 5,000 UNIT/0.5 ML VIAL SQ SCH (20:02)
[2022-07-27] MEDS: traZODone HCL 50 MG TAB PO SCH (20:03)
[2022-07-27] MEDS: sulfaSALAzine 500 MG TABLET PO SCH (20:03)
[2022-07-28 06:05] LABS: Hematocrit (blood only) 29.6 % (37.0-47.0); Mean Corpuscular Hemoglobin 31.6 pg (25.0-34.0); Mean Corpuscular Hgb Conc 33.8 g/dL (32.0-36.0); Mean Corpuscular Volume 93.7 fL (80.0-100.0); Mean Platelet Volume 9.1 fL (9.4-12.4); Platelet Count 212 K/uL (130-400); RDW Coefficient of Variation 12.3 % (11.5-14.5); RDW Standard Deviation 42.9 fL (36.4-46.3); Red Blood Count 3.16 M/uL (4.20-5.40); White Blood Count 11.82 K/ul (4.8-10.8)
[2022-07-28 06:48] LABS: BUN Creatinine Ratio 5.6 (10-20); Calcium 7.6 mg/dl (8.5-10.1); Est GFR (African American) 8.4 ml/min; Est GFR (Non-African American) 7.2 ml/min; Potassium 3.9 mmol/L (3.5-5.1)
[2022-07-28] MEDS: predniSONE 20 MG TAB PO SCH (08:24)
[2022-07-28] MEDS: DULoxetine HCL 20 MG CAP PO SCH (08:24)
[2022-07-28] MEDS: sulfaSALAzine 500 MG TABLET PO SCH ×3 (08:24→19:45)
[2022-07-28] MEDS: CHOLECALCIFEROL 1,000 UNITS 25 MCG TAB PO SCH (08:24)
[2022-07-28] MEDS: SEVELAMER HCL 800 MG TABLET PO SCH ×3 (08:24→17:30)
[2022-07-28] MEDS: PANTOprazole 40 MG TAB PO SCH (08:24)
[2022-07-28] MEDS: HEPARIN SOD 5,000 UNIT/0.5 ML VIAL SQ SCH ×2 (08:25→19:45)
--- NOTE | 2022-07-28 10:25 | Nephrology Progress Note ---
Date of Service July 28, 2022 Assessment & Plan (1) LI (acute kidney injury): (2) Proteinuria: (3) Microscopic hematuria: Plan Acute kidney injury with RPGN, so far workup has been unremarkable, pending kidney biopsy result, has been on dialysis. Last dialysis was on Thursday. BP, electrolytes, volume status acceptable. --keep on TTS dialysis schedule, okay to be discharged does as she has set up for outpatient dialysis on TTS at 10:30 am at [facility]. -- dose medications for EGFR less than 10, left arm nephrology precaution -- continue on prednisone 60 mg /d, Bactrim for PCP prophylaxis, Protonix 40 mg/d, further management based on final biopsy findings. will follow. Admission and Anticipated Discharge Date Admission Date: July 27, 2022 Marilou Gomez seen and evaluated this morning. Overall feeling well, denies any shortness of breath, fever, chills. Urine output has been decent. Blood pressure well controlled. Creatinine continues to rise off of dialysis, electrolyte acceptable. T Review of Systems Review of Systems: Detail ROS was otherwise unremarkable. Physical Exam Constitutional: WD/WN, vitals as above no acute distress Respiratory: Auscultation: lungs clear to auscultation bilaterally Cardiovascular: RRR, no murmur, no edema Skin: no rashes Neurologic: no focal motor deficits Psychiatric: Orientation: alert and oriented x 3 Results & Data ([facility]) Vital Signs (Past 12 Hours) Vital Signs Temp Pulse Resp BP Pulse Ox O2 Del Method 07/28/22 07:43 37.1 C 87 18 130/88 94 Room Air PG Care Time/CCT Total # of Minutes Spent Total Time Spent with Patient: Total time spent is greater than 50% in coordination of care (as documented) at patient's floor/unit and/or counseling patient: Coding Level of Care Code 70010 SUB INP/OBS CARE 3/50MIN Diagnoses LI (acute kidney injury) N17.9 Proteinuria R80.9 Microscopic hematuria R31.29
[2022-07-28] MEDS ORDERED: PROCHLORPERAZINE MALEATE 5 MG TAB PO ONE (14:45)
[2022-07-28] MEDS ORDERED: SULFA/TRIMETH 400/80MG TAB PO SCH (15:00)
--- NOTE | 2022-07-28 18:01 | Hospitalist Progress Note ---
Date of Service July 28, 2022 Assessment & Plan (1) Acute renal failure: Plan: Severe nonoliguric LI with nephrotic syndrome (greater than 10 g of proteinuria) Initial URI sx on 07/11/22 (NEW MEDS: doxycycline, Phenergan, prednisone) was in ER on 07/14 released on diclofenac (pt did not take) pt states typically takes 2 advil a day for years to help arthralgias Cr at that time 0.082 return on 07/17 with Cr 7.64 peaked above 10 prior to dialysis, dialysis ini tiated on 07/21/2022 again treated on 07/22/2022 reportedly did have + home covid test but has been negative here -- CT-A/P: "Mild nonspecific perinephric stranding." no obstructive issues seen, renal ultrasound shows no obstructive changes Blood cultures negative urine and serum immunofixation with no monoclonal antibodies Check GN serologies: hepatitis panel - negative, HIV - negative, C3/C4 - within normal limits although total complement > 60, ANCA +mpo+PR3 - negative, TERESITA - negative, dsDNA - negative, anti-GBM negative Transitioned to po prednisone from methylprednisolone starting 07/22/22 although she did not appear to be getting this at [place] Continue prednisone per nephrology recommendations Continue Bactrim for PJP prophylaxis s/p renal biopsy @ [facility] Jul 25 - await pathology from this S/p started on dialysis here and has continued with last dialysis on July 26 - once this is able to be set up patient can be discharged Was trying to set her up on 07/29, however case managemnet says that this was not fully scheduled, and will need to be started on 07/30 Patient will get HD here on 07/29 (2) Fibromyalgia: Plan: Continue duloxetine 40 mg p.o. daily and trazodone 50 mg p.o. at bedtime Continue nortriptyline and gabapentin as needed (3) GERD (gastroesophageal reflux disease): Plan: Continue pantoprazole 40 mg p.o. daily (4) Psoriatic arthritis: Plan: Continue sulfasalazine 1000 mg p.o. twice daily Plan VTE prophylaxis -heparin 5000 units SQ twice daily Diet -dialysis renal Disposition -admit to [facility] Admission and Anticipated Discharge Date Admission Date: July 27, 2022 Subjective Patient reports feeling comfortable, she has no new complaints. Review of Systems Review of Systems: All systems reviewed & are unremarkable except as noted in HPI & below Physical Exam Physical Exam: Constitutional: WD/WN, vitals as above Eyes: + anicteric sclerae; normal pupil size ENMT: external ear and nose normal, oropharynx normal Respiratory: normal respiratory effort, lungs clear to auscultation Cardiovascular: RRR, no murmur, no edema Gastrointestinal (Abdomen): normal bowel sounds, soft, nontender, no hepatosplenomegaly Musculoskeletal: no cyanosis or clubbing, extremities motor strength 5/5 Skin: no rashes, warm and dry Neurologic: moves all extremities and awake; not confused Psychiatric: A+Ox3, euthymic affect Genitourinary: no CVA tenderness Results & Data Results & Data ([facility]) Vital Signs (Past 12 Hours) Vital Signs Temp Pulse Pulse Resp BP Pulse Ox O2 Del Method 07/28/22 16:00 37.1 C 73 16 160/91 H 96 Room Air 07/28/22 07:43 37.1 C 87 18 130/88 94 Room Air PG Care Time/CCT Total # of Minutes Spent Total Time Spent with Patient: Total time spent is greater than 50% in coordination of care (as documented) at patient's floor/unit and/or counseling patient: Coding Level of Care Code 21680 SUB INP/OBS CARE 2/35MIN Diagnoses Acute renal failure N17.9 Fibromyalgia M79.7 GERD (gastroesophageal reflux disease) K21.9 Psoriatic arthritis L40.50
[2022-07-28] MEDS: traZODone HCL 50 MG TAB PO SCH (19:45)
[2022-07-29 06:37] LABS: Hematocrit (blood only) 29.7 % (37.0-47.0); Mean Corpuscular Hemoglobin 31.5 pg (25.0-34.0); Mean Corpuscular Hgb Conc 33.7 g/dL (32.0-36.0); Mean Corpuscular Volume 93.7 fL (80.0-100.0); Mean Platelet Volume 8.9 fL (9.4-12.4); Platelet Count 221 K/uL (130-400); RDW Coefficient of Variation 12.4 % (11.5-14.5); RDW Standard Deviation 42.7 fL (36.4-46.3); Red Blood Count 3.17 M/uL (4.20-5.40)
[2022-07-29 06:44] LABS: BUN Creatinine Ratio 6.7 (10-20); Calcium 7.8 mg/dl (8.5-10.1); Creatinine Clr Calc Pharmacy 11.5 ml/min; Est GFR (African American) 8.8 ml/min; Est GFR (Non-African American) 7.6 ml/min; Potassium 3.7 mmol/L (3.5-5.1)
[2022-07-29] MEDS: SEVELAMER HCL 800 MG TABLET PO SCH ×3 (07:51→18:18)
[2022-07-29] MEDS: CHOLECALCIFEROL 1,000 UNITS 25 MCG TAB PO SCH (07:51)
[2022-07-29] MEDS: PANTOprazole 40 MG TAB PO SCH (07:51)
[2022-07-29] MEDS: HEPARIN SOD 5,000 UNIT/0.5 ML VIAL SQ SCH (07:52)
[2022-07-29] MEDS: predniSONE 20 MG TAB PO SCH (07:52)
[2022-07-29] MEDS: DULoxetine HCL 20 MG CAP PO SCH (07:52)
[2022-07-29] MEDS: sulfaSALAzine 500 MG TABLET PO SCH (07:53)
--- NOTE | 2022-07-29 10:12 | Nephrology Progress Note ---
Date of Service July 29, 2022 Assessment & Plan (1) LI (acute kidney injury): (2) Proteinuria: (3) Microscopic hematuria: Plan Acute kidney injury with RPGN, so far workup has been unremarkable, pending kidney biopsy result, has been on dialysis. Last dialysis was on Thursday. BP, electrolytes, volume status acceptable. --keep on TTS dialysis schedule, okay to be discharged after HD as she has set up for outpatient dialysis on at 10:30 am at [facility]. -- dose medications for EGFR less than 10, left arm nephrology precaution -- continue on prednisone 60 mg /d, Bactrim for PCP prophylaxis, Protonix 40 mg/d, further management based on final biopsy findings. will follow. Admission and Anticipated Discharge Date Admission Date: July 27, 2022 Marilou Gomez was seen and examined this morning while she was getting dialysis. Has been tolerating dialysis well, blood pressure was acceptable. No dizziness or lightheadedness. Electrolyte was acceptable. Sent urine output. Review of Systems Review of Systems: Detail ROS was otherwise unremarkable. Physical Exam Constitutional: WD/WN, vitals as above no acute distress Respiratory: Auscultation: lungs clear to auscultation bilaterally Cardiovascular: RRR, no murmur, no edema Skin: no rashes Neurologic: no focal motor deficits Psychiatric: Orientation: alert and oriented x 3 Results & Data ([facility]) Vital Signs (Past 12 Hours) Vital Signs Temp Pulse Resp BP Pulse Ox O2 Del Method 07/29/22 08:08 37.1 C 89 18 161/97 H 99 Room Air PG Care Time/CCT Total # of Minutes Spent Total Time Spent with Patient: Total time spent is greater than 50% in coordination of care (as documented) at patient's floor/unit and/or counseling patient: Coding Level of Care Code 19875 SUB INP/OBS CARE 3/50MIN Diagnoses LI (acute kidney injury) N17.9 Proteinuria R80.9 Microscopic hematuria R31.29
--- NOTE | 2022-07-31 16:15 | Discharge Summary ---
Date of Service July 29, 2022 Admission HPI Per Admitting Provider Patricia Torres is a 57-year-old female who presents as a direct admission back from [facility] after her renal biopsy. This was performed on July 25 - results currently pending. Plan to return to [facility] as dialysis not yet set up as an outpatient. I discussed this with Dr. Abraham on Thursday who discussed with chart the unit dialysis regional ehs manager in [place] but unfortunately was unable to be set up in time to be directly discharged from [place]. The patient reports she has continued to produce urine. Appetite improved. No pain over renal biopsy sites on the left side. No shortness of breath, chest pain. She was hospitalized here from July 17 to 2022 due to acute renal failure following an upper respiratory illness 2 to 3 days prior. Random protein cre atinine ratio was suggestive of more than 10 g protein in 24 hours. She was started on dialysis after permacath was inserted on July 21. Nephrology recommended renal biopsy and she was transferred to [facility] to facilitate this on July 22. Last dialysis session at [facility] that was July 26. Discharge Exam Constitutional: WD/WN, vitals as above Eyes: + anicteric sclerae; normal pupil size ENMT: external ear and nose normal, oropharynx normal Respiratory: normal respiratory effort, lungs clear to auscultation Cardiovascular: RRR, no murmur, no edema Gastrointestinal (Abdomen): normal bowel sounds, soft, nontender, no hepatosplenomegaly Musculoskeletal: no cyanosis or clubbing, extremities motor strength 5/5 Skin: no rashes, warm and dry Neurologic: moves all extremities and awake; not confused Psychiatric: A+Ox3, euthymic affect Genitourinary: no CVA tenderness Discharge Data Allergies Allergy/AdvReac Type Severity Reaction Status Date / Time codeine AdvReac Severe severe Verified 07/17/22 19:41 vomiting Consultations 07/27/22 10:30 Consult Nephrology Routine Hospital Course (1) Acute renal failure: Severe nonoliguric LI with nephrotic syndrome (greater than 10 g of proteinuria) Initial URI sx on 07/11/22 (NEW MEDS: doxycycline, Phenergan, prednisone) was in ER on 07/14 released on diclofenac (pt did not take) pt states typically takes 2 advil a day for years to help arthralgias Cr at that time 0.082 return on 07/17 with Cr 7.64 peaked above 10 prior to dialysis, dialysis initiated on 07/21/2022 again treated on 07/22/2022 reportedly did have + home covid test but has been negative here -- CT-A/P: "Mild nonspecific perinephric stranding." no obstructive issues seen, renal ultrasound shows no obstructive changes Blood cultures negative urine and serum immunofixation with no monoclonal antibodies Check GN serologies: hepatitis panel - negative, HIV - negative, C3/C4 - within normal limits although total complement > 60, ANCA +mpo+PR3 - negative, TERESITA - negative, dsDNA - negative, anti-GBM negative Transitioned to po prednisone from methylprednisolone starting 07/22/22 although she did not appear to be getting this at [place] Continue prednisone per nephrology recommendations Continue Bactrim for PJP prophylaxis s/p renal biopsy @ [facility] Jul 25 - await pathology from this S/p started on dialysis here and has continued with last dialysis on July 26 - once this is able to be set up patient can be discharged Was trying to set her up on 07/29, however case managemnet says that this was not fully scheduled, and will need to be started on 07/30 Patient will get HD here on 07/29 (2) Fibromyalgia: Continue duloxetine 40 mg p.o. daily and trazodone 50 mg p.o. at bedtime Continue nortriptyline and gabapentin as needed (3) GERD (gastroesophageal reflux disease): Continue pantoprazole 40 mg p.o. daily (4) Psoriatic arthritis: Continue sulfasalazine 1000 mg p.o. twice daily Plan VTE prophylaxis -heparin 5000 units SQ twice daily Diet -dialysis renal Disposition -admit to [facility] Discharge Plan Discharge Items Patient Disposition: Home - Self-Care Reason For Visit: ACUTE KIDNEY FAILURE Discharge Diagnosis: acute kidney failure Activity: Resume your previous activity Non-emergency contact: Primary Care Provider Call non-emergency contact if: you have any medication questions Follow-up/Referrals: Kerline Duque DO [Primary Care Provider] - 08/04/22 2:05 pm Diet: Dialysis Renal Addtl Attending Provider Instructions: Please go to [facility] center tomorrow for your treatment. Outpatient dialysis on TTS at [facility]. Pending Studies at Discharge: No Stand-Alone Forms: My [facility] [employer], Smoking Cessation Medications and DC Order Prescriptions: New prochlorperazine maleate [Compazine] 5 mg tablet 5 mg PO Q8H PRN (Reason: nausea and vomiting) Qty: 30 0RF Continued cholecalciferol (vitamin D3) [Vitamin D3] 25 mcg (1,000 unit) Tablet 50 mcg PO QAM pantoprazole 40 mg Tablet,Delayed Release (Dr/Ec) 40 mg PO QAM Qty: 30 0RF trazodone 50 mg tablet 50 mg PO HS nortriptyline 10 mg capsule 10 mg PO HS PRN (Reason: Fibromyalgia) sevelamer carbonate 800 mg Tablet 800 mg PO TID Rx Instructions: must administer with a meal/food duloxetine [Cymbalta] 20 mg capsule,delayed release(DR/EC) 20 mg PO QAM Qty: 30 0RF Changed gabapentin 600 mg tablet 300 mg PO HS PRN (Reason: Fibromyalgia) Qty: 30 0RF sulfasalazine 500 mg tablet 500 mg PO BID Qty: 60 0RF No Action prednisone 20 mg tablet 60 mg PO DAILY Qty: 90 0RF sulfamethoxazole-trimethoprim [Bactrim] 400-80 mg tablet 1 tab PO [id number] Qty: 12 0RF Discharge Orders: Discharge Order (Routine); Ordered 07/29/22 Ordered By: Benton Mccain/Other Patient Handouts: Exercise to Help Your Kidneys, Monitoring Kidney Health, Finding Support for Kidney Disease, Kidney Failure Healthcare Team, How Your Kidneys Work, Kidney Failure Treatment Options, Hemodialysis, Kidney Failure Self Care, Coping with Kidney Failure, Anemia and Kidney Disease, Kidney Disease Anemia Iron, Kidney Disease Potassium in Diet, Kidney Disease Reducing Potassium, Kidney Disease Calcium Phosphorus, Kidney Disease Protein Choices, Kidney Disease Protein, Kidney Disease Fluid Intake, Kidney Disease: Limiting Fluids, Kidney Disease: Eating Less Sodium Admission Data Admit Date/Time: 07/27/22 10:11 Attending Provider: Benton Scales Admit Provider: Fernando Schneider Primary Care Provider: Kerline Duque Other Providers: Giulia Arora Other Interventions: Discharge Summary Assessment (RN) Last Done: 07/29/22 17:06 Coding Diagnoses Acute renal failure N17.9 Fibromyalgia M79.7 GERD (gastroesophageal reflux disease) K21.9 Psoriatic arthritis L40.50
== END 2022-07-29 18:17 | disposition home or self-care (01) | DRG 684 ==
LOC: 3E 07-27 10:11 → SUATTDRO 07-27 10:11